=== PATIENT | male | born 1965 | race Caucasian/White ===

== ENCOUNTER 2024-08-16 14:07 | Outpatient (CLI) | payer MEDICARE, SELFPAY | END 2024-08-16 14:08 | disposition home or self-care (01) | LOC: NFLDREF 08-17 13:18 | PROVIDERS: PCP Emergency Medicine; Referring Provider Emergency Medicine; Visit Provider Emergency Medicine | DX: E78.5 Hyperlipidemia, unspecified (principal); I10 Essential (primary) hypertension; E11.65 Type 2 diabetes mellitus with hyperglycemia | CPT/HCPCS: 80053; 80061; 82043; 82570 ==

== ENCOUNTER 2024-11-12 13:00 | Emergency (ER) | payer MEDICARE, SELFPAY ==
--- OUTSIDE RECORDS SUMMARY | 2024-11-11 12:50 | XMS_ITS | Encounter Summary ---
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 [facility] DATE: 11/11/2024 INDICATION: Pain. COMPARISON: None. IMPRESSION: The odontoid process appears grossly intact. Vertebral body heights areunremarkable. Alignment is unremarkable. Moderate C5-C6 spondylosis, with intervertebral disc height loss andendplate spurring. Unremarkable prevertebral soft tissues. The visualized lung apices are well aerated. Adam Rivera MD [facility] [place] DIAGNOSTIC IMAGING O RDERABLES Final Result * CT Head w/o Contrast (11/11/2024 1:59 PM CDT) Anatomical Region Laterality Modality Head, SUBRAD CT NEURO, SUBRA D CT NEURO, UMP CT NEURO, RAD CT Computed Tomography 11/11/2024 1:59 PM CDT Impressions 11/11/2024 2:51 PM CDT IMPRESSION: 1. No acute intracranial abnormality. Narrative 11/11/2024 2:51 PM CDT EXAM: CT HEAD W/O CONTRAST LOCATION: [facility] DATE: 11/11/2024 INDICATION: head trauma COMPARISON: None. TECHNIQUE: Routine CT head without IV contrast. Multiplanar reformats. Dose reduction techniques were used. FINDINGS: INTRACRANIAL CONTENTS: No acute intracranial hemorrhage. No CT evidence of an acute infarction. Right frontal, parietal, and temporal encephalomalacia. Mild presumed chronic small vessel ischemic changes. Mild to moderate generalized volume loss. No hydrocephalus. VISUALIZED ORBITS/SINUSES/MASTOIDS: No intraorbital abnormality. No significant paranasal sinus mucosal disease. No significant middle ear or mastoid effusion. BONES/SOFT TISSUES: No acute abnormality. Partially calcified left parietal scalp lesion, likely benign such as a sebaceous cyst. Procedure Note Catina Barragan MD - 11/11/2024 EXAM: CT HEAD W/O CONTRAST LOCATION: [facility] DATE: 11/11/2024 INDICATION: head trauma COMPARISON: None. TECHNIQUE: Routine CT head without IV contrast. Multiplanar reformats.Dose reduction techniques were used. FINDINGS: INTRACRANIAL CONTENTS: No acute intracranial hemorrhage. No CT evidence ofan acute infarction. Right frontal, parietal, and temporalencephalomalacia. Mild presumed chronic small vessel ischemic changes.Mild to moderate generalized volume loss. No hydrocephalus. VISUALIZED ORBITS/SINUSES/MASTOIDS: No intraorbital abnormality. Nosignificant paranasal sinus mucosal disease. No significant middle ear ormastoid effusion. BONES/SOFT TISSUES: No acute abnormality. Partially calcified leftparietal scalp lesion, likely benign such as a sebaceous cyst. IMPRESSION: 1. No acute intracranial abnormality. us Adam Rivera MD IM CT ORDERABLES Final Result * (ABNORMAL) Glucose by meter (11/11/2024 1:29 PM CDT) GLUCOSE BY METER POCT 406(H) 70 - 99 mg/dL 11/11/2024 1:36 PM CDT [facility] Blood, Capillary BLOOD SPECIMEN / Unknown 11/11/2024 1:29 PM CDT 11/11/2024 1:36 PM CDT us Adam Rivera MD LAB - BEAKER POCT Final Result [facility] [address] Lab (1st floor, no room number) [place] [address], [facility] documented in this encounter Visit Diagnoses Diagnosis Strain of right shoulder, initial encounter- Primary Cervical strain, initial encounter Elevated blood pressure reading Elevated blood pressure reading without diagnosis of hypertension documented in this encounter Administered Medications Inactive Administered Medications - up to 3 most recent administrations Medication Order MAR Action Action Date Dose Rate Site acetaminophen (TYLENOL) tablet 500 mg 500 mg, Oral, EVERY 4 HOURS PRN, fever, Starting on 11/11/24 at 1324, Maximum acetaminophen dose from all sources = 75 mg/kg/day not to exceed 4 gram $Given 11/11/2024 1:27 PM CDT 500 mg documented in this encounter Active and Recently Administered Medications Times are shown in CDT. PRN Medication Order 11/09/2024 11/10/2024 11/11/2024 acetaminophen (TYLENOL) tablet 500 mg 500 mg, Oral, EVERY 4 HOURS PRN, fever, Starting on 11/11/24 at 1324, Maximum acetaminophen dose from all sources = 75 mg/kg/day not to exceed 4 gram 1327 ($Given - Provi ny: Pooja Richards RN) documented in this encounter Care Teams Rn Cardiac Cath Relationship Specialty Start Date End Date Clinic, [place] [address] PCP - General 11/11/24 documented as of this encounter
[2024-11-12 13:24] VITALS: BP 147/93; PULSE 102; RESP 22; TEMP 36.9; O2SAT 96; BMI 29.8
--- NOTE | 2024-11-12 14:56 | ED.GENADULT ---
HPI - General Adult General Chief complaint: Psychiatric Problem/Disorder Stated complaint: Mental Health Time Seen by Provider: 11/12/24 14:36 History of Present Illness HPI narrative: This 59-year-old male comes in his . He is reporting headache for the past 3 days but also has some confusion and anger episodes. He was arrested by police 3 days ago and placed in hand coughs and then released. Apparently he was not charged with any crime. He has had some bruising de la cruz on his hands from the handcuffs and these have resolved. He did go to a different emergency department and had CT imaging done of his head and also his neck and left shoulder were evaluated. These results returned with no findings to explain his symptoms. He did receive a prescription for some tablets of [place] any states that this is not helped him. His states that his blood glucose has been elevated to around 400 and is blood pressure is been a bit elevated. Related Data Home Medications ?Medication ?Instructions ?Recorded ?Confirmed apixaban 5 mg tablet (Eliquis) 5 mg PO BID 03/30/24 11/12/24 cyclobenzaprine 10 mg tablet 10 mg PO QPM PRN muscle spasm 03/30/24 11/12/24 trazodone 150 mg tablet 75 mg PO QPM 03/30/24 11/12/24 insulin NPH-regular 70-30 U-100 15 unit subcut BID 08/16/24 11/12/24 insulin 100 unit/mL subcutaneous pen (Novolin 70-30 FlexPen U-100 Insulin) metoprolol succinate 50 mg 50 mg PO BID 08/16/24 11/12/24 tablet,extended release 24 hr Previous Rx's ?Medication ?Instructions ?Recorded metformin 1,000 mg tablet 1,000 mg PO BID #360 tabs 08/16/24 blood-glucose,research editor,cont #1 ea 08/17/24 (Dexcom G7 Spare Parts Clerk) diltiazem HCl 360 mg 360 mg PO DAILY #90 caps 09/13/24 capsule,extended release 24 hr glipizide 10 mg tablet 10 mg PO BID #180 tabs 09/13/24 losartan 50 mg tablet 50 mg PO DAILY #90 tabs 09/13/24 pioglitazone 45 mg tablet 45 mg PO DAILY #90 tabs 09/13/24 atorvastatin 40 mg tablet 40 mg PO QDAY #90 tabs 09/20/24 pen needle, diabetic 29 gauge x #100 ea 09/20/24 1/2 (Ultra-Thin II Insulin Pen Paris) blood-glucose sensor (Dexcom G7 #9 ea 09/24/24 Sensor device) lidocaine 5 % topical patch 1 patch topical QDAY #90 ea 10/18/24 tirzepatide 2.5 mg/0.5 mL 2.5 mg (0.5 mL) subcut QWEEK 4 10/18/24 subcutaneous pen injector weeks #2 mL (Mounjaro) meloxicam 15 mg tablet 15 mg PO QDAY PRN pain #30 tabs 11/02/24 lorazepam 0.5 mg tablet (Ativan) 0.5 mg PO BID PRN #10 tabs 11/12/24 ondansetron HCl 4 mg tablet 4 mg PO Q6H #10 tabs 11/12/24 Allergies Allergy/AdvReac Type Severity Reaction Status Date / Time No Known Drug Allergies Allergy Verified 11/12/24 13:30 Review of Systems Status of ROS: Reports: 10 or more systems reviewed and unremarkable except as noted in History and below Narrative: Constitutional: No fevers, no weight gain or loss. Eyes: No discharge. No vision changes. HENT: No congestion, no sore throat, no ear pain. Cardiovascular: No chest pain, no palpitations. Respiratory: No shortness of breath, no wheezes, no cough. Gastrointestinal: No abdominal pain, no vomiting, no diarrhea. He does report nausea symptoms. Genitourinary: No dysuria, no hematuria. Musculoskeletal: Normal range of motion. He reports pain in his head neck and shoulder. Resolving bruises on his wrists from handcuffs. Skin: No rashes, no pruritis. Neurological: No dizziness, weakness, sensory change, speech change. Endo/Heme/Allergies: No bruising or bleeding. No polydipsia. Pysch: no suicidality. He reports insomnia. All other systems reviewed and are negative. 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 (ICD-10) Surgical History (Updated 10/18/24 @ 15:03 by Franny Santana PA-C) History of cardiac radiofrequency ablation (RFA) ?Z98.890 - Other specified postprocedural states (ICD-10) Family History (Updated 08/16/24 @ 14:57 by Yudy Duke MD) Father Diabetes Eye cancer Mother Diabetes Sister Cancer Social History (Updated 07/24/24 @ 14:07 by Soraida Hough ~ DELMAR) Narrative: fiancee , no children, no exercise, on disability, rare etoh quit cigs 2006 What is your current living situation?: I presently have a place to live Problems where you live: no known problems In the past 12 months, utilities in danger of being shut off: no In past 12 months, lack of transportation kept you from medical appts, meetings, work, or getting things needed for daily living: no In the past 12 mos, have been you worried that your food would run out before you had money to buy more?: often true In the past 12 mos, the food you bought just didn't last and you didn't have money to buy more?: sometimes true How often does anyone, including family, friends and others, physically hurt you: never How often does anyone, including family, friends and others, insult or talk down to you: never How often does anyone, including family, friends and others, threaten you with harm: never How often does anyone, including family, friends and others, scream or curse at you: never Health Related Social Needs: food insecurity (Z59.41) Exam Narrative: Exam Narrative: Constitutional: Well-developed, well-nourished, no acute distress. HEENT: Normocephalic, atraumatic. Neck: Normal range of motion. Nontender. Supple. Heart: Regular. No murmurs. Normal rate. Intact distal pulses. Lungs: Clear to auscultation. No chest discomfort. No wheezes, rhonchi, or rales. Abdomen: Normal bowel sounds. Nontender. No rebound tenderness. Genitalia: Deferred. Back: No midline tenderness. Normal range of motion. Extremities: Normal range of motion. No injury. Skin: Intact. No rash. Warm. No erythema or pallor. Neurologic: No altered sensation. No weakness. Alert and oriented. Psychiatric: No suicidality. He reports insomnia. Nursing notes and vitals signs are reviewed. Const: Vital Signs, click to edit/add: Vital Signs - 24 hr 11/12/24 13:24 Temperature 98.5 F Pulse Rate [Pulse Oximeter] 102 H Respiratory Rate 22 Blood Pressure [Ri ght Upper Arm] 147/93 H Pulse Oximetry 96 Oxygen Delivery Me thod Room Air Course Vital Signs Vital signs: Initial Vital Signs Temperature 98.5 F 11/12/24 13:24 Temperature Source Temporal Artery Scan 11/12/24 13:24 Pulse Rate 102 H 11/12/24 13:24 Respiratory Rate 22 11/12/24 13:24 Blood Pressure 147/93 H 11/12/24 13:24 Blood Pressure Mean 111 H 11/12/24 13:24 Pulse Oximetry 96 11/12/24 13:24 Oxygen Delivery Method Room Air 11/12/24 13:24 Vital Signs Temperature 98.5 F 11/12/24 13:24 Pulse Rate 102 H 11/12/24 13:24 Respiratory Rate 22 11/12/24 13:24 Blood Pressure 147/93 H 11/12/24 13:24 Pulse Oximetry 96 11/12/24 13:24 Oxygen Delivery Method Room Air 11/12/24 13:24 Temperature 98.5 F 11/12/24 13:24 Pulse Rate 102 H 11/12/24 13:24 Respiratory Rate 22 11/12/24 13:24 Blood Pressure 147/93 H 11/12/24 13:24 Pulse Oximetry 96 11/12/24 13:24 Oxygen Delivery Method Room Air 11/12/24 13:24 Medical Decision Making MDM Narrative Medical decision making narrative: This patient was handcuffed by police a few days ago and since then has had some headache with report of confusion by his . He has had some anger and agitation according to her also. He states that he has had some nausea and has not been sleeping well at night. He did take [place] and stated this did not help him at all. His gave him a Valium tablet which did help him sleep. He was evaluated at [facility] in the emergency department and discharged home with prescription for [place]. This evaluation occurred yesterday. It seems that he is having symptoms of a concussion. His blood pressure and blood glucose are elevated likely due to this recent incident. The patient has reassuring vital signs and exam. He is okay to be discharged home. He did receive an oral dose of Ativan here. I did provide limited prescription for more Ativan tablets along with Zofran. I described matters pertaining to concussion and when to return to activity. Discharge Plan Discharge Clinical Impression: Concussion, Nausea, Insomnia Patient Disposition: Home w/ Parent or Adult Condition: Stable Additional Instructions: Take medication as needed and directed. Increase activity as tolerated. Follow up with MD return if worsening. Prescriptions: New ondansetron HCl 4 mg tablet 4 mg PO Q6H Qty: 10 0RF lorazepam [Ativan] 0.5 mg tablet 0.5 mg PO BID PRNQty: 10 0RF No Action (DME) pen needle, diabetic [Ultra-Thin II Ins Pen Paris] 29 gauge x 1/2 needle See Rx Instructions .Route Qty: 100 3RF Rx Instructions: As directed twice daily atorvastatin 40 mg tablet 40 mg PO QDAY Qty: 90 3RF cyclobenzaprine 10 mg tablet 10 mg PO QPM PRN (Reason: muscle spasm) Eliquis 5 mg tablet 5 mg PO BID trazodone 150 mg tablet 75 mg PO QPM metoprolol succinate 50 mg tablet extended release 24 hr 50 mg PO BID Novolin 70-30 FlexPen U-100 100 unit/mL (70-30) insulin pen 15 unit subcut BID metformin 1,000 mg tablet 1,000 mg PO BID Qty: 360 3RF lidocaine 5 % adhesive patch,medicated 1 patch topical QDAY Qty: 90 0RF Rx Instructions: leave on most painful area for up to 12 hrs Mounjaro 2.5 mg/0.5 mL pen injector 2.5 mg subcut QWEEK 28 Days Qty: 2 0RF Rx Instructions: once weekly for diabetes (DME) Dexcom G7 Spare Parts Clerk Misc See Rx Instructions .Route Qty: 1 0RF Rx Instructions: As directed diltiazem HCl 360 mg capsule,extended release 24hr 360 mg PO DAILY Qty: 90 0RF pioglitazone 45 mg tablet 45 mg PO DAILY Qty: 90 0RF losartan 50 mg tablet 50 mg PO DAILY Qty: 90 0RF glipizide 10 mg tablet 10 mg PO BID Qty: 180 0RF (DME) Dexcom G7 Sensor Device See Rx Instructions .Route Qty: 9 3RF Rx Instructions: As directed meloxicam 15 mg tablet 15 mg PO QDAY PRN (Reason: pain) Qty: 30 1RF Follow Up/Referrals: Franny Santana PA-C [Primary Care Provider, Family Practice] Stand Alone Forms: MyHealth Info Instructions
--- OUTSIDE RECORDS SUMMARY | 2024-11-12 15:05 | XMS_ITS | Encounter Summary ---
Author Organization [facility] Address [address] [place] [id number] Care Team Providers Care Bedspread Folder Name Role Phone [facility] Primary Care Provider Encounter Details Date Type Department Care Team (Latest Contact Info) Description 11/11/2024 Travel Social History Tobacco Use Types Packs/Day Years Used Date Smoking Tobacco: Never Assessed Sex and Gender Information Value Date Recorded Sex Assigned at Not on file Legal Sex Male 11:43 AM CDT Gender Identity Not on file Sexual Orientation Not on file documented as of this encounter Plan of Treatment Not on file documented as of this encounter Visit Diagnoses Not on filedocumented in this encounter Care Teams Bedspread Folder Relationship Specialty Start Date End Date [facility] [address] [place] [address] PCP - General 11/11/24 documented as of this encounter
--- OUTSIDE RECORDS SUMMARY | 2024-11-12 15:05 | XMS_ITS | Encounter Summary ---
Author Organization [facility] Address [address] [place] [address] Care Team Providers Care Skiver Counter Name Role Phone None Reported, Pcp Primary Care Provider Unavail able Reason for Visit * Reason Comments Med Refill Encounter Details Date Type Department Care Team ([facility] st Contact Info) Description 09/28/2024 Refill Department of Family Medicine, [facility], in [place], [place] [address] [place] [id number] Tish Velasquez M.D. [address] [place] [address] [place] [address] Med Refill Social History Tobacco Use Types Packs/Day Years Used Date Smoking Tobacco: Former Cigarettes Q uit: 11/21/2006 Smokeless Tobacco: Former Alcohol Use Standard Drinks/Week Comments Yes 3 (1 standard drink = 0.6 oz pur e alcohol) [facility] Utilities Answer Date Recorded In the past 12 months has e electric, gas, oil, or water company threatened to shut off services in your home? No 04/28/2023 Humiliation, Afraid, Rape, and Kick questionnair e Answer Date Recorded Within the last year, have y ou been afraid of your partner or ex-partner? No 01/11/2022 Within the last year, have y ou been humiliated or emotionally abused in other ways by your partner or ex-partner? No Within the last year, have y ou been kicked, hit, slapped, or otherwise physically hurt by your partner or ex-partner? No 01/11/2022 Within the last year, have y ou been raped or forced to have any kind of sexual activity by your partner or ex-partner? No 01/11/2022 Hunger Vital Sign Answer Date Recorded Within the past 12 months, y ou worried that your food would run out before you got the money to buy more. Sometimes true Within the past 12 months, t he food you bought just didn't last and you didn't have money to get more. Sometimes true PRAPARE - Transportation Answer Date Re corded In the past 12 months, has l ack of transportation kept you from medical appointments or from getting medications? No 04/08 In the past 12 months, has l ack of transportation kept you from meetings, work, or from getting things needed for daily living? No 04/28/2023 Depression Answer Date Recor ded PHQ-9 Total Score (max 27) 6 06/26 Housing Stability Answer Date Recorded What is your living situation today? I have [facility] live 04/28/2023 Education Answer Date Recorded What is the highest level of school you have completed or the highest degree you have received? 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 - 10/02/2024 10:45 AM CDT Patient no longer under prescriber care documented in this encounter Plan of Treatment Not on file documented as of this encounter Visit Diagnoses Not on filedocumented in this encounter Additional Health Concerns Assessment Noted Time PHQ-9 Depression Total Score: 6 06/27/19 24 8:34 PM CDT documented as of this encounter Care Teams Skiver Counter Relationship Specialty Start Date End Date None Reported, Pcp PCP - General 01/13/24 documented as of this encounter
--- OUTSIDE RECORDS SUMMARY | 2024-11-12 15:06 | XMS_ITS | Clinical Summary ---
Author Organization [facility] Address [address] [place] [address]. [place] [address] Care Team Providers Care Human Resources Benefits Administrator Name Role Phone [facility] Primary Care Provider Allergies No known active allergies Medications HYDROcodone-acet aminophen (NORCO) 5-325 MG tablet Take 1 tablet by mouth every 6 hours as needed for pain. 10 tablet 11/11/2024 Active Encounters Date Type Department Care Team Description 11/11/2024 12:50 PM CDT - 11/11/2024 4:12 PM CDT Emergency [facility] Emergency Dept [address] [place] [address] Adam Rivera MD Strain of right shoulder, initial encounter (Primary Dx); Cervical strain, initial encounter; Elevated blood pressure reading Discharge Disposition: Home or Self Care 11/11/2024 Travel from Last 3 Months Social History Tobacco Use Types Packs/Day Years Used Date Smoking Tobacco: Never Assessed Sex and Gender Information Value Date Recorded Sex Assigned at Not on file Legal Sex Male 11:43 AM CDT Gender Identity Not on file Sexual Orientation Not on file Last Filed Vital Signs Vital Sign Reading [...] Mass Index 29.68 11/11/2024 11:54 AM CDT Plan of Treatment Health Maintenance Due Date Last Done Comments ADVANCE CARE PLANNING 1965 ANNUAL REVIEW OF HM ORDERS 1965 CT COLONOGRAPHY 1965 FLEX SIG 1965 MEDICARE ANNUAL WELLNESS VISIT 1983 LIPID 2005 PNEUMOCOCCAL VACCINE 50+ YEARS (1 of 1 - PCV) 2015 ZOSTER VACCINE (1 of 2) 2015 FIT 07/06/2018 07/06/2017 sDNA (Cologuard) 05/09/2023 05/08/2020 PHQ-2 (once per calendar year) 2024 DTAP/TDAP/TD VACCINE (2 - Td or Tdap) 05/17/2024 05/17/2014 COVID-19 VACCINE (3 - 2024-2 6 season) 2024 07/23/2020, 06/23/2020 INFLUENZA VACCINE (#1) 2024 DIABETES SCREENING 11/12/2027 11/11/2024 COLONOSCOPY 05/26/2032 05/26/2022 COLORECTAL CANCER SCREENING 05/26/2032 HEPATITIS C SCREENING Completed 10/04/2014 HIV SCREENING Completed 10/04/2014 HEPATITIS B VACCINE Completed 11/25/2014, 06/24/2014, 05/17/2014 HPV VACCINE (No Doses Required) Completed MENINGITIS VACCINE Aged Out No longer eligible based on patient's age to complete this topic Procedures Procedure Name Priority Date/Time Associated Diagnosis Comments XR SHOULDER RIGHT G/E 3 VIEWS STAT 11/11/2024 2:14 PM CDT XR CERVICAL SPINE 2/3 VIEWS STAT 11/11/2024 2:[address] HEAD W/O CONTRAST STAT 11/11/2024 1:59 PM CDT GLUCOSE BY METER STAT 11/11/2024 1:29 PM CDT from Last 3 Months Results * XR Shoulder Right G/E 3 Views (11/11/2024 2:14 PM CDT) Anatomical Region Laterality Modality Shoulder, Right Shoulder Right Digital Radiography 11/11/2024 2:14 PM CDT Impressions 11/11/2024 2:17 PM CDT IMPRESSION: Anatomic alignment of the right shoulder. No fracture. Mild acromioclavicular joint arthrosis. Narrative 11/11/2024 2:17 PM CDT EXAM: XR SHOULDER RIGHT G/E 3 VIEWS LOCATION: [facility] DATE: 11/11/2024 INDICATION: pain COMPARISON: None. Procedure Note Sheela Berry MD - 11/11/2024 EXAM: XR SHOULDER RIGHT G/E 3 VIEWS LOCATION: [facility] DATE: 11/11/2024 INDICATION: pain COMPARISON: None. IMPRESSION: Anatomic alignment of the right shoulder. No fracture. Mildacromioclavicular joint arthrosis. us Adam Rivera MD IMG DIAGNOSTIC IMAGING O RDERABLES Final Result * [...] EXAM: XR CERVICAL SPINE 2/3 VIEWS LOCATION: [facility] DATE: 11/11/2024 INDICATION: Pain. COMPARISON: None. Procedure Note Maldonado Meza MD - 11/11/2024 EXAM: XR CERVICAL SPINE 2/3 VIEWS LOCATION: [facility] DATE: 11/11/2024 INDICATION: Pain. COMPARISON: None. IMPRESSION: The odontoid process appears grossly intact. Vertebral body heights areunremarkable. Alignment is unremarkable. Moderate C5-C6 spondylosis, with intervertebral disc height loss andendplate spurring. Unremarkable prevertebral soft tissues. The visualized lung apices are well aerated. us Adam Rivera MD IMG DIAGNOSTIC IMAGING O RDERABLES Final Result * CT Head w/o Contrast (11/11/2024 1:59 PM CDT) Anatomical Region Laterality Modality Head, SUBRAD CT NEURO, SUBRA D CT NEURO, UMP CT NEURO, RAD CT Computed Tomography 11/11/2024 1:59 PM CDT Impressions 11/11/2024 2:51 PM CDT IMPRESSION: 1. No acute intracranial abnormality. Narrative 11/11/2024 2:51 PM CDT EXAM: CT HEAD W/O CONTRAST LOCATION: [facility] DATE: 11/11/2024 INDICATION: head trauma COMPARISON: None. [...] 11/11/2024 EXAM: CT HEAD W/O CONTRAST LOCATION: [facility] DATE: 11/11/2024 INDICATION: head trauma COMPARISON: None. [...] cyst. IMPRESSION: 1. No acute intracranial abnormality. Adam Rivera MD IMG CT ORDERABLES Final Result * (ABNORMAL) Glucose by meter (11/11/2024 1:29 PM CDT) [facility] GLUCOSE BY METER POCT 406(H) 70 - 99 mg/dL 11/11/2024 1:36 PM CDT LABORATORY POC Blood, Capillary BLOOD SPECIMEN / Unknown 11/11/2024 1:29 PM CDT 11/11/2024 1:36 PM CDT Adam Rivera MD LAB - BEAKER POCT Final Result Performing Organization Address City/State/[facility] Co de Phone Number LABORATORY POC [facility] [address] [facility] (1st floor, no room number) [place] [address], [facility] from Last 3 Months Insurance [employer] MEDICARE ADVANTAGE [employer]ARE ADVANTAGE Care Teams Human Resources Benefits Administrator Relationship Specialty Start Date End Date [facility] [address] [place] [address] PCP - General 11/11/24
--- OUTSIDE RECORDS SUMMARY | 2024-11-12 15:07 | XMS_ITS | Continuity of Care Document ---
Author Organization [facility] Address [address] [place] [address] Care Team Providers Care Campus Receptionist Name Role Phone None Reported, Pcp Primary Care Provider Unavail able Source Comments Patient records contain information from all sites at [facility]. For routine questions regarding patient records, call [phone] during business hours, M-F 8:00 AM - 5:00 PM Central Time. Record requests for emergency care only can be directed to [phone] at any time.[facility] Encounters Date Type Department Care Team Description 5 Refill Department of Family Medicine, [facility], in [address] [address] Tish Velasquez M.D. Med Refill 5 Refill Formerly [facility] Department of Family Medicine in [place], [place] [address] [place] [address] Tish Velasquez M.D. Med Refill 5 Refill Formerly [facility] Department of Family Medicine in [place], [place] [address] [place] [address] Tish Velasquez M.D. Med Refill 5 Refill Department of Cardiovascular Diseases in [place], [place] [address] [place] [phone] Katharine Cheema APRN, C.NDeb., D.N.P. Med Refill 5 Refill Formerly [facility] Department of Family Medicine in [place], [place] [address] [place] [address] Tish Velasquez M.D. Med Refill 5 Refill Formerly [facility] Department of Family Medicine in [place], [place] [address] [place] [address] Tish Velasquez M.D. Med Refill 5 Refill Formerly [facility] Department of Family Medicine in [place], [place] [address] [place] [address] Tish Velasquez M.D. Med Refill 4 Refill Department of Family Medicine, [facility], in [address] [address] Tish Velasquez M.D. Med Refill 4 Refill [facility] of Family Medicine in [place], [place] [address] [place] [address] Tish Velasquez M.D. Med Refill 4 Refill Formerly [facility] Department of Family Medicine in [place], [place] [address], [place] [address] Tish Velasquez M.D. Med Refill 4 Refill Formerly [facility] Department of Family Medicine in [place], [place] [address], [place] [address] Ad Frankel M.D. Med Refill 4 Clinical Communication Formerly [facility] Department of Family Medicine in [place] [address] [place] [address] Tish Velasquez M.D. 4 Refill [facility] [place] in [place], [place] [address] [place] [address] Tish Velasquez M.D. Med Refill 4 Refill [facility] [place] in [place], [place] [address] [place] [address] Tish Velasquez M.D. Med Refill 4 Refill [facility] [place] in [place], [place] [address] [place] [address] Tish Velasquez M.D. Med Refill 4 2:00 PM CDT Nurse Only Department of Orthopedic Surgery in [address] [address] Aziza Ruiz APRN, C.N.P., M.S.N. [facility], R.NDouglas Discharge Disposition: Home or Self Care 4 Refill [facility] [place] in [place], [place] [address] [place] [address] Tish Velasquez M.D. Med Refill 4 3:00 PM CDT Office Visit [facility] [place] in [place], [place] [address] [place] [address] Tish Velasquez M.D. 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 4 Refill [facility] [place] in [place], [place] [address] [place] [address] Tish Velasquez M.D. Med Refill 4 Clinical Communication [facility] Family [facility] in [place] [address] [place] [address] Tish Velasquez M.D. lab 4 Refill Department of Cardiovascular Diseases in [address] [address] Katharine Cheema APRN, C.N.PDouglas, D.N.P. Med Refill 4 Refill Department of Family Medicine, [facility], in [place] [address] [place] [address] Tish Velasquez M.D. Med Refill 4 Refill [facility] Family Medicine in [place] [address] [place] [address] Tish Velasquez M.D. Med Refill 4 3:34 PM GLOBAL CEO - 4 11:59 PM GLOBAL CEO Hospital Encounter Department of [facility] Medicine, [facility], in [address] [address] Tish Velasquez M.D. Diabetes Mellitus Type 2 With Diabetic Neuropathy (HCC); Hypertension And Chronic Kidney Disease Stage 2 Discharge Disposition: Home or Self Care 4 9:00 AM GLOBAL CEO Nurse Only Department of Orthopedic Surgery in [address] [address] Aziza Ruiz APRN, C.N.P., M.S.N. Zully Martinez, R.N. Discharge Disposition: Home or Self Care 3 Clinical Communication [facility] [place] in [place] [address] [place] [address] Tish Velasquez M.D. Form Review ([facility]) 3 Clinical Communication [facility] of Family Medicine in [place] [address] [place] [address] Tish Velasquez M.D. 3 Clinical Communication Department of Cardiovascular Diseases in [address] [phone] Katharine Cheema APRN C.N.P., D.N.P. 3 3:00 PM GLOBAL CEO Office Visit Department of Cardiovascular Diseases in [address] [phone] Katharine Cheema APRN, C.N.P., D.N.P. Atrial Fibrillation Paroxysmal (HCC) (Primary Dx); Hypotension Orthostatic Autonomic Neurogenic; Syncope Discharge Disposition: Home or Self Care 3 Refill [facility] of Family Medicine in [place], [place] [address] [place] [address] Ad Frankel M.D. Med Refill 3 Patient Outreach [facility] Family Medicine in [place] [address] [place] [address] Tish Velasquez M.D. Lab Monitoring 3 Orders Only Department of Orthopedic Surgery in [address] [phone] Aziza Ruiz APRN C.N.P., M.S.N. 3 Clinical Communication Department of Orthopedic Surgery in [address] [place] [phone] Aziza Ruiz APRN C.N.P., M.S.N. 3 3:30 PM CDT Office Visit [facility] Department of Family Medicine in [place], [place] [address] [place] [address] Tish Velasquez M.D. Diabetes Mellitus Type 2 With Diabetic Neuropathy Hyperglycemic (HCC) (Primary Dx); Hypertension And Chronic Kidney Disease Stage 2; Hyperlipidemia 3 12:24 PM CDT - 3 11:59 PM CDT Hospital Encounter Department of Laboratory Medicine, [facility], in [address] [address] Tish Velasquez M.D. Hyperlipidemia; Diabetes Mellitus Type 2 With Diabetic Neuropathy Hyperglycemic (HCC); Hypertension And Chronic Kidney Disease Stage 2 Discharge Disposition: Home or Self Care 3 Clinical Communication Department of Cardiovascular Diseases in [address] [address] Catrachita Chavira R.N. Return office visit with Rinku Cheema [facility] 3 Clinical Communication Department of Cardiovascular Diseases in [address] [phone] Katharine Cheema APRN, C.N.P., D.N.P. 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 Syncope Discharge Disposition: Home or Self Care 3 1:30 PM CDT Office Visit Department of Cardiovascular Diseases in [address] [phone] Katharine Cheema APRN, C.N.P., D.N.P. Atrial Fibrillation Paroxysmal (HCC) (Primary Dx); Obstructive Sleep Apnea Adult Discharge Disposition: Home or Self Care 3 Clinical Communication Department of Cardiovascular Diseases in [address] [address] Katharine Cheema APRN C.N.PDouglas, D.N.P. Tachy episode on Reveal LINQ loop recorder 3 2:00 AM CDT - 3 11:59 PM CDT Hospital Encounter Department of Cardiovascular Diseases in [place], [place] [address] [place] [phone] Fernando Leiva M.D. Syncope Discharge Disposition: Home or Self Care 3 3:00 PM CDT Office Visit Department of Orthopedic Surgery in [address] [phone] Aziza Ruiz APRN, C.N.P., M.S.N. Zully Martinze, R.N. Thickened Toenail (Primary Dx); Diabetes Mellitus Type 2 With Diabetic Neuropathy Hyperglycemic (HCC) Discharge Disposition: Home or Self Care 3 Refill [facility] Department of Family Medicine in [place], [place] [address] [place] [address] Tish Velasquez M.D. Med Refill 3 1:24 PM CDT - 3 11:59 PM CDT Hospital Encounter Department of Cardiovascular Diseases in [address] [address] Katharine Cheema APRN, C.N.P., D.N.P. Atrial Fibrillation Other Persistent (HCC) Discharge Disposition: Home or Self Care 3 Refill Department of Family Medicine, [facility], in [place], [place] [address] [place] [address] Ludmila Rose APRN C.N.PDouglas, M.S. Med Refill 3 Refill [facility] of Family Medicine in [place] [address] [place] [phone] Tish Velasquez M.D. Med Refill 3 Refill [facility] Department of Family Medicine in [place] [address] [place] [address] Tish Velasquez M.D. Med Refill 3 Orders Only [facility] MNT Tish Velasquez M.D. Diabetes Mellitus Type 2 With Diabetic Neuropathy Hyperglycemic (HCC) 3 Clinical Communication [facility] Department of Family Medicine in [place] [address] [place] [address] Tish Velasquez M.D. 3 Clinical Communication Department of Pain Medicine in [address] [address] Abdirashid Parham M.D., M.B.A. 3 Orders Only Department of Pain Medicine in [address] [address] Abdirashid Parham M.D., M.B.A. 3 Refill Department of Cardiovascular Diseases in [address] [address] Katharine Cheema APRN, C.N.P., D.N.P. Med Refill 3 Clinical Communication Department of Pain Medicine in [address] [address] Abdirashid Parham M.D., M.B.A. 3 Clinical Communication [facility] Department of Family Medicine in [place] [address] [place] [address] Tish Velasquez M.D. 3 Clinical Communication Former[facility] Department of Family Medicine in [place] [address] [place] [address] Tish Velasquez M.D. Med Refill 3 Orders Only Department of Pain Medicine in [address] [address] Abdirashid Parham M.D., M.B.A. Spondylosis Lumbar Without Myelopathy (Primary Dx) 3 Clinical Communication Department of Pain Medicine in [address] [address] Abdirashid Parham M.D., M.B.A. Communication 3 Refill Department of Family Medicine, [facility], in [address] [address] Ludmila Rose, KINGS C.N.P., M.S. Med Refill 3 3:30 PM CDT Ancillary Procedure Department of Radiology, [facility], in [place], [place] [address] [place] [address] Abdirashid Parham M.D., M.B.A. Pain Shoulder Right; Radiculopathy Cervical; Radiculopathy Lumbar 3 Refill [facility] of Family Medicine in [place], [place] [address] [place] [address] Prescheduling, Provider Med Refill 3 Refill [facility] Department of Family Medicine in [place], [place] [address] [place] [phone] Tish Velasquez M.D. Med Refill 3 Refill [facility] Department of Family Medicine in [place], [place] [address] [place] [phone] Abdirashid Parham M.D., M.B.A. Med Refill 3 Clinical Communication Department of Pain Medicine in [address] [address] Abdirashid Parham M.D., M.B.A. 3 Refill [facility] Family Medicine in [place] [address] [address] Tish Velasquez M.D. Med Refill 3 11:30 AM CDT - 3 11:59 PM CDT Hospital Encounter Department of Cardiovascular Diseases in [address] [phone] Katharine Cheema APRN, C.N.P., D.N.P. Syncope Discharge Disposition: Home or Self Care 3 Orders Only Department of Cardiovascular Diseases in [address] [phone] Felipa Garcia, R.N. Syncope (Primary Dx) 3 11:30 AM CDT Office Visit Department of Cardiovascular Diseases in [address] [phone] Katharine Cheema APRN, C.N.P., D.N.P. Atrial Fibrillation Paroxysmal (HCC) (Primary Dx); Atrial Fibrillation Other Persistent (HCC) 3 3:00 PM CDT Comprehensive Visit Department of Pain Medicine in [address] [address] Abdirashid Parham M.D., M.B.A. Radiculopathy Cervical (Primary Dx); Pain Shoulder Right; Radiculopathy Lumbar; Tendonitis Rotator Cuff 3 Patient Outreach Department of Physical Medicine and Rehabilitation in [address] [phone] Tanya Vargas, R.N. 3 Clinical Communication [facility] Family Medicine in [place] [address] [place] [address] Tish Velasquez M.D. Phone Call 3 Clinical Communication Department of Pain Medicine in [place], [place] [address] [place] [address] Manuel Esteban R.N. 3 3:00 PM CDT Office Visit [facility] of Family Medicine in [place], [place] [address] [place] [address] Tish Velasquez M.D. Diabetes Mellitus Type 2 With Diabetic Neuropathy Hyperglycemic (HCC) (Primary Dx); Hypertension And Chronic Kidney Disease Stage 2; Hyperlipidemia; Atrial Fibrillation Paroxysmal (HCC); Obstructive Sleep Apnea Adult; Pain Shoulder Right 3 1:00 PM CDT - 3 11:59 PM CDT Hospital Encounter Department of Laboratory Medicine, [facility], [place], [place] [address] [place] [address] Ludmila Rose APRN, C.N.P., M.S. Diabetes Mellitus Type 2 With Diabetic Neuropathy Hyperglycemic (HCC) Discharge Disposition: Home or Self Care 3 Refill Department of Family Medicine, [facility], [address] [address] Ludmila Rose APRN, C.N.P., M.S. Med Refill 3 Clinical Communication Department of Family Medicine, [facility], [address] [address] Tish Velasquez M.D. Med Question 3 4:30 PM CDT Office Visit [facility] Family Medicine in [place], [place] [address] [place] [address] Tish Velasquez M.D. Chronic Cough (Primary Dx); Infection Upper Respiratory Viral 3 10:00 AM CDT Comprehensive Visit Department of Orthopedic Surgery in [address] [address] Aziza Ruiz APRN, C.N.Kemar, M.S.N. Diabetes Mellitus Type 2 With Diabetic Neuropathy Hyperglycemic (HCC) (Primary Dx); Thickened Toenail 3 10:25 AM CDT Ancillary Procedure Department of Gastroenterology 3 9:25 AM CDT Anesthesia Event Department of Gastroenterology in [address] [address] Renee Landa APRN, CRNA Quale, Mackenzie G, M.D. 3 9:15 AM CDT - 3 10:00 AM CDT Surgery Department of Gastroenterology in [address] [address] Kasi Duran M.B.B.S., Jacob COLONOSCOPY 3 7:21 AM CDT - 3 11:30 AM CDT Hospital Encounter Department of Gastroenterology in [address] [address] Kasi Duran M.B.B.S., MBarbra Discharge Disposition: Home or Self Care 3 Clinical Communication Department of Gastroenterology in [address] [address] Joann Bardales R.N., CGRN 3 Documentation Department of Cardiovascular Diseases in [address] [address] Ashley Gibbs M.D. 3 Clinical Communication Department of Family Medicine, [facility], in [place], [place] [address] [place] [address] Ludmila Rose APRN, C.N.Stephan., M.S. 3 Refill Department of Family Medicine, [facility], [address] [place] [address] Ludmila Rose APRN, C.N.P., M.S. Med Refill 3 Clinical Communication Department of Gastroenterology in [address] [place] [address] Alyssa Valente R.N. CVD device review for 05/20 procedure 3 Clinical Communication Department of Family [facility], [facility], [address] [place] [address] Ludmila Rose APRN, Viktoria.N.Stephan., M.S. After Visit Question (Pt wants a call back) 3 11:45 AM GLOBAL CEO Clinical Support Department of Physical Medicine and Rehabilitation in [address] [place] [address] Parish Mock M.D., Ph.D. Glenn Harrington P.Rowdy., D.P.T., OCS Pain Shoulder Right 3 Clinical Communication Department of Family Medicine, [facility], [address] [place] [address] Ludmila Rose APRN, Viktoria.N.P., M.S. Form Review ([facility] DM Supplies 04/30/22) 3 Refill Department of Family Medicine, [facility], [address] [place] [address] Ludmila Rose APRN, Viktoria.N.P., M.S. Med Change Request; [facility] 3 1:15 PM GLOBAL CEO Comprehensive Visit Department of Physical Medicine and Rehabilitation in [place], [place] [address] [place] [address] Parish Mock M.D., Ph.D. Glenn Harrington P.T., CarmitaPTessa., OCS Pain Shoulder Right 3 Clinical Communication Department of Family [facility], [facility], [address] [place] [address] Ludmila Rose APRN, C.N.P., M.S. 3 Refill Department of Family [facility], [facility], [address] [place] [address] Ludmila Rose APRN, C.N.P., M.S. Med Refill 3 Orders Only Department of Family Medicine, [facility], [address] [place] [address] Ludmila Rose APRN, Viktoria.N.P., M.S. 3 Clinical Communication Department of Family [facility], [facility], [address] [place] [address] Ludmila Rose APRN, C.N.P., M.S. Form Review ([facility] DM supplies-strips, lancets, swabs ) 3 9:00 AM GLOBAL CEO Comprehensive Visit Department of Orthopedic Surgery in [address] [place] [phone] Parish Mock M.D., Ph.D. Pain Shoulder Right Discharge Disposition: Home or Self Care 3 3:35 PM GLOBAL CEO - 3 11:59 PM GLOBAL CEO Hospital Encounter Department of Radiology in [address] [place] [address] Ludmila Rose APRN, C.N.P., M.S. Pain Shoulder Right Discharge Disposition: Home or Self Care 3 4:00 PM GLOBAL CEO Office Visit Department of Family [facility], [facility], [address] [place] [address] Ludmila Rose APRN, C.N.P., M.S. Diabetes Mellitus Type 2 With Diabetic Neuropathy Hyperglycemic (HCC) (Primary Dx); Pain Shoulder Right; Depression Major One Episode Moderate (HCC); Atrial Fibrillation Paroxysmal (HCC); Hypertension And Chronic Kidney Disease Stage 2; Cough Unspecified Type Discharge Disposition: Home or Self Care 3 1:26 PM GLOBAL CEO - 3 11:59 PM GLOBAL CEO Hospital Encounter Department of Laboratory Medicine, [facility], [address] [address] Ludmila Rose APRN, C.N.P., M.S. Diabetes Mellitus Type 2 With Diabetic Neuropathy Hyperglycemic (HCC); Hypertension And Chronic Kidney Disease Stage 2 Discharge Disposition: Home or Self Care 2 Clinical Communication Department of Family Medicine, [facility], [address] [address] Ludmila Rose APRN C.N.P., M.S. 2 Clinical Communication Department of Anesthesiology in [address] [address] Kellie Thorpe Cardiac device procedure recommendations 2 Clinical Communication Department of Family Medicine, [facility], [address] [address] Ludmila Rose APRN, C.N.P., M.S. 2 Clinical Communication Department of Gastroenterology in [address] [address] Lee Ann Dillard Colonscopy 02/09 2 Clinical Communication Department of Family Medicine, [facility], [address] [address] Ludmila Rose APRN C.N.P., M.S. Nurse Visit (Blood pressure ) 2 4:00 PM GLOBAL CEO Nurse Only [facility] Department of Family Medicine in [place], [place] [address] [place] [address] Ludmila Rose APRN, C.N.P., M.S. Tracey Aj, R.M.A. Nurse Visit (Bp check ) 2 3:30 PM CDT Office Visit Department of Family Medicine, [facility], [address] [place] [address] Ludmila Rose APRN, C.N.P., M.S. Diabetes Mellitus Type 2 With Diabetic Neuropathy Hyperglycemic (HCC) (Primary Dx); Hypertension And Chronic Kidney Disease Stage 2; Problem Related To Housing And Economic Circumstances Unspecified; Injury Shoulder Subsequent Right; Screening Cancer Colon Discharge Disposition: Home or Self Care 2 1:57 PM CDT - 2 11:59 PM CDT Hospital Encounter Department of Laboratory Medicine, [facility], in [address] [address] Ludmila Rose APRN, C.N.P., M.S. Diabetes Mellitus Type 2 With Diabetic Neuropathy Hyperglycemic (HCC) Discharge Disposition: Home or Self Care 2 Nurse Triage Department of Family Medicine, [facility], [address] [place] [address] Heather James, R.N. Arm Injury; Hand Injury 2 Clinical Communication Department of Family Medicine, [facility], [address] [address] Ludmila Rose APRN, C.N.P., M.S. 2 11:17 AM CDT - 2 12:40 PM CDT Emergency [facility] Emergency Department [address] [place] [phone] Orlando Simpson M.D. Contusion Face Initial (Primary Dx) Discharge Disposition: Home or Self Care 2 Clinical Communication Outpatient Procedure Center in [place], [place] [address] [place] [address] Gerald Yamilka A 2 Clinical Communication Department of Family Medicine, [facility], [address] [place] [address] Ludmila Rose APRN, C.N.P., M.S. Diabetes 2 Refill Department of [facility], [facility], [address] [place] [address] Prescheduling, Provider Med Refill 2 Refill Department of Family [facility], [facility], [address] [place] [address] Ludmila Rose APRN, C.NJose, M.S. Med Refill 2 Clinical Communication Department of Family [facility], [facility], [address] [place] [address] Ludmila Rose APRN, C.N.P., M.S. 2 Clinical Communication Department of Family [facility], [facility], [address] [place] [address] Ludmila Rose APRN, C.N.P., M.S. 2 Clinical Communication Department of Family [facility], [facility], [address] [place] [address] Ludmila Rose APRN, C.N.P., M.S. Form Review ([facility] diabetic supplies ) 2 Clinical Communication Department of Family [facility], [facility], [address] [place] [address] Ludmila Rose APRN, C.N.P., M.S. Diabetes; supplies 2 3:00 PM CDT Office Visit Department of Family Medicine, [facility], [address] [address] Ludmila Rose APRN, C.N.P., M.S. Diabetes Mellitus Type 2 With Diabetic Neuropathy Hyperglycemic (HCC) (Primary Dx); Obstructive Sleep Apnea Adult; Hypertension And Chronic Kidney Disease Stage 2; Depression Major One Episode Moderate (HCC); Anxiety Generalized Disorder; Screening Cancer Colon 2 8:53 AM CDT - 2 11:59 PM CDT Hospital Encounter Department of Laboratory Medicine, [address] [address] Ludmila Rose APRN, C.N.P., M.S. Discharge Disposition: Home or Self Care 2 1:15 PM CDT - 2 11:59 PM CDT Hospital Encounter Department of Laboratory Medicine, [facility], [address] [address] Ludmila Rose APRN, C.N.P., M.S. Diabetes Mellitus Type 2 With Diabetic Neuropathy Hyperglycemic (HCC) Discharge Disposition: Home or Self Care 2 Clinical Communication Department of Family Medicine, [facility], [address] [address] Ludmila Rose APRN, C.N.P., M.S. 2 Refill Department of Family Medicine, [facility], [address] [address] Ludmila Rose APRN, C.N.P., M.S. Med Refill 2 Clinical Communication Department of Family Medicine, [facility], [address] [address] Ludmila Rose APRN, C.N.PDouglas, M.S. 2 Refill Department of Family Medicine, [facility], in [address] [place] [address] Ludmila Rose APRN, C.N.P., M.S. Med Refill 2 Clinical Communication Department of Family Medicine, [facility], in [address] [place] [address] Ludmila Rose APRN, C.N.P., M.S. 2 Clinical Communication Department of Family [facility], [facility], in [address] [place] [address] Ludmila Rose APRN, C.N.P., M.S. Communication (Call Iris @ [facility]) 2 Clinical Communication Department of Family [facility], [facility], in [address] [place] [address] Ludmila Rose APRN, C.N.P., M.S. Communication (Call Iris @ [facility]) 2 Refill Department of Family [facility], [facility], in [address] [place] [address] Ludmila Rose APRN, C.N.P., M.S. Med Refill 2 Clinical Communication Department of Family [facility], [facility], in [address] [place] [address] Ludmila Rose APRN, C.N.P., M.S. Communication; Med Refill 2 Clinical Communication Department of Cardiovascular Diseases in [address] [place] [address] Katharine Cheema APRN C.N.P., D.N.P. Tachy episode detected on LINQ 2 2:00 AM CDT - 2 11:59 PM CDT Hospital Encounter Department of Cardiovascular Diseases in [place] [id number] [place] [address] Charles Bermudez M.D. Discharge Disposition: Home or Self Care 2 Clinical Communication Department of Family Medicine, [facility], [address] [place] [address] Ludmila Rose APRN, C.N.P., M.S. Diabetes 2 Clinical Communication Department of Family Medicine, [facility], [address] [place] [address] Ludmila Rose APRN, C.N.P., M.S. Diabetes 2 Refill Department of Family [facility], [facility], [address] [place] [address] Ludmila Rose APRN, C.N.P., M.S. Med Refill (multiple) 2 Clinical Communication Department of Family [facility], [facility], [address] [place] [address] Ludmila Rose APRN, C.N.P., M.S. Communication (Pharmacy change and two meds need prior auth ) 2 Refill Department of Family [facility], [facility], [address] [place] [address] Ludmila Rose APRN, C.N.P., M.S. Med Refill 2 Orders Only Department of Family Medicine, [facility], [address] [place] [address] Ludmila Rose APRN C.N.P., M.S. 2 Intake [facility] 2 12:50 AM GLOBAL CEO - 2 1:56 AM GLOBAL CEO Emergency [facility] [address] [place] [address], [place] [address] Bela Sauceda P.A.-C. Acute Abdomen (Primary Dx) Discharge Disposition: Home or Self Care 2 Refill Department of Family Medicine, [facility], [address] [place] [address] Ludmila Rose APRN, C.N.P., M.S. Med Refill 2 1:01 PM GLOBAL CEO - 2 11:59 PM GLOBAL CEO Hospital Encounter Department of Laboratory Medicine in [address] [place] [address] Ludmila Rose APRN, C.N.P., M.S. Diabetes Mellitus Type 2 (HCC) Discharge Disposition: Home or Self Care 2 3:30 PM GLOBAL CEO Office Visit Department of Family Medicine, [facility], [address] [place] [address] Ludmila Rose APRN, C.N.P., M.S. Diabetes Mellitus Type 2 With Diabetic Neuropathy Hyperglycemic (HCC) 2 10:30 AM GLOBAL CEO Anticoagulation Visit Department of Anticoagulation in [address] [place] [address] Ludmila Rose APRN, C.N.P., M.S. 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 Atrial Fibrillation Paroxysmal (HCC) (Primary Dx); Hypotension Orthostatic Autonomic Neurogenic; Syncope 2 3:00 PM GLOBAL CEO Anticoagulation Visit Department of Anticoagulation in [address] [place] [address] Ludmila Rose APRN, C.N.P., M.S. 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 Atrial Fibrillation Paroxysmal (HCC); Halfway (Current) Anticoagulant Treatment; Monitoring For Therapeutic Drug Therapy 2 3:30 PM GLOBAL CEO Anticoagulation Visit Department of Anticoagulation in [address] [place] [address] Ludmila Rose APRN, C.N.P., M.S. 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 2 Clinical Communication Department of Family Medicine, [facility], in [address] [place] [address] Ludmila Rose APRN, C.N.P., M.S. 2 Orders Only Department of Family Medicine, [facility], [address] [place] [address] Ludmila Rose APRN, C.N.P., M.S. Diabetes Mellitus Type 2 With Diabetic Neuropathy Hyperglycemic (HCC) (Primary Dx) 2 Clinical Communication Department of Family Medicine, [facility], in [address] [place] [address] Ludmila Rose APRN, C.N.P., M.S. Diabetes 2 Orders Only Department of Family [facility], [facility], [address] [place] [address] Sheela Asher L.P.N. Diabetes Mellitus Type 2 (HCC) (Primary Dx) 2 Clinical Communication Department of Anticoagulation in [address] [place] [address] Mamie Hanson, R.N. Anticoagulation (POC to restart warfarin) 2 3:00 PM GLOBAL CEO Anticoagulation Visit Department of Anticoagulation in [address] [place] [address] Ludmila Rose APRN, C.N.P., M.S. 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 2 Clinical Communication Department of Anticoagulation in [address] [place] [address] Mamie Hanson, R.N. Appointment 2 Orders Only Department of Anticoagulation in [address] [place] [address] Mamie Hanson, R.N. Monitoring For Therapeutic Drug Therapy (Primary Dx); Atrial Fibrillation Paroxysmal (HCC); Lead Electrician (Current) Anticoagulant Treatment 2 Clinical Communication Department of Family Medicine, [facility], in [address] [place] [address] Ludmila Rose APRN, C.N.PDouglas, M.S. 2 Clinical Communication Department of Cardiovascular Diseases in [address] [phone] Katharine Cheema APRN, C.N.P., D.N.P. Afib with RVR 2 2:00 AM GLOBAL CEO - 2 11:59 PM GLOBAL CEO Hospital Encounter Department of Cardiovascular Diseases in [address] [phone] Fernando Leiva M.D. Discharge Disposition: Home or Self Care 2 Clinical Communication Department of Family Medicine, [facility], [address] [address] Ludmila Rose APRN, C.N.PDouglas, M.S. 2 Clinical Communication Pharmacy Prior Auth RO [phone] Lee Ann Murillo I. Rx Prior Authorization (PA ANDREE EXCEPTION DENIED - ELIQUIS 5 MG TABLETS) 2 Orders Only Pharmacy Prior Auth RO [phone] Lee Ann Murillo I. 2 Orders Only Pharmacy Prior Auth RO [phone] Michelle Godinez 2 Clinical Communication Department of Family [facility], [facility], [address] [address] Ludmila Rose APRN, C.N.P., M.S. 2 Refill Department of Family [facility], [facility], [address] [address] Ludmila Rose APRN, C.N.PDouglas, M.S. Med Refill 2 2:00 AM GLOBAL CEO - 2 11:59 PM GLOBAL CEO Hospital Encounter Department of Cardiovascular Diseases in [address] [place] [address] Charles Bermudez M.D. Syncope (Primary Dx) Discharge Disposition: Home or Self Care 2 Clinical Communication Department of Family [facility], [facility], [address] [place] [address] Ludmila Rose APRN, C.N.P., M.S. Blood Pressure Check (Med increase) 2 3:15 PM GLOBAL CEO Nurse Only Department of Family Medicine, [facility], [address] [place] [address] Ludmila Rose APRN, C.N.P., M.S. Ally Ramos Blood Pressure Check (Med increase) 1 2:49 PM GLOBAL CEO - 1 11:59 PM GLOBAL CEO Hospital Encounter Department of Laboratory Medicine in [address] [address] Ludmila Rose APRN, C.N.P., M.S. Diabetes Mellitus Type 2 With Diabetic Neuropathy Hyperglycemic (HCC) Discharge Disposition: Home or Self Care 1 2:30 PM GLOBAL CEO Office Visit Department of Family Medicine, [facility], [address] [place] [address] Ludmila Rose APRN, C.N.P., M.S. Depression Major One Episode Moderate (HCC) (Primary Dx); Diabetes Mellitus Type 2 With Diabetic Neuropathy Hyperglycemic (HCC); Hypertension And Chronic Kidney Disease Stage 2 1 Orders Only [facility] Ludmila Rose APRN, C.N.P., M.S. 1 Refill Department of Family Medicine, [facility], [address] [place] [address] Ludmila Rose APRN, C.N.P., M.S. Med Refill 1 Refill Department of Family Medicine, [facility], [address] [place] [address] Ludmila Rose APRN, C.NDouglasPDouglas, M.S. Med Refill 1 Refill Department of Family Medicine, [facility], [address] [place] [address] Ludmila Rose APRN, C.N.P., M.S. Med Refill (Relion Novolin 70/30 Flexpen) 1 Refill Department of Family Medicine, [facility], [address] [place] [address] Ludmila Rose APRN, C.N.P., M.S. Med Refill (NovoLin 70/30) 1 12:44 PM CDT - 1 11:59 PM CDT Hospital Encounter Department of Cardiovascular Diseases in [address] [address] Fernando Leiva M.D. Syncope Discharge Disposition: Home or Self Care 1 Clinical Communication Department of Cardiovascular Diseases in [address] [address] Debra Lopez APRN, C.N.P., M.S.N., R.N. 1 2:00 AM CDT - 1 11:59 PM CDT Hospital Encounter Department of Cardiovascular Diseases in [address] [address] Fernando Leiva M.D. Syncope Discharge Disposition: Home or Self Care 1 4:16 PM CDT - 1 6:16 PM CDT Emergency [facility] [address] [place] [address], [place] [address] Bruce Medrano P.A.-C. Vomiting (Primary Dx); Hyperglycemia Discharge Disposition: Home or Self Care 1 Refill Department of Family [facility], [facility], [address] [place] [address] Ludmila Rose APRN, C.N.P., M.S. Med Refill 1 Refill Department of [facility], [facility], [address] [place] [address] Ludmila Rose APRN C.N.P., M.S. Med Refill 1 2:30 PM CDT Office Visit Department of [facility], [facility], [address] [place] [address] Ludmila Rose APRN, C.N.P., M.S. Depression Major One Episode Moderate (HCC) (Primary Dx); Hematuria; Diabetes Mellitus Type 2 With Diabetic Neuropathy Hyperglycemic (HCC) 1 Clinical Communication Department of [facility], [facility], [address] [place] [address] Ludmila Rose APRN C.N.P., M.S. Communication (er visit 12/01 ) 1 7:22 PM CDT - 1 9:15 PM CDT [facility] [address] [place] [address], [place] [address] Bella Foster P.A.-C. Schumacher, Lori R, P.A.-C. Infection Urinary Tract (Primary Dx); Hematuria Discharge Disposition: Home or Self Care 1 Clinical Communication Department of [facility], [facility], [address] [place] [address] Ludmila Rose APRN, C.N.P., M.S. Medication Problem 1 Refill Department of Family Medicine, [facility], in [address] [place] [address] Ludmila Rose APRN, C.N.PDouglas, M.S. Med Refill 1 Refill Department of Family [facility], [facility], in [address] [place] [address] Ludmila Rose APRN, C.N.PDouglas, M.S. Med Refill 1 Refill Department of Family [facility], [facility], in [address] [place] [address] Ludmila Rose APRN, C.N.P., M.S. Med Refill 1 Clinical Communication Department of Family [facility], [facility], in [address] [place] [address] Delmi Rios, R.N. 1 Refill Department of [facility], [facility], in [address] [place] [address] Delmi Rios, R.N. Med Refill (Multiple refills ) 1 Refill Department of Family [facility], [facility], in [address] [place] [address] Ludmila Rose APRN, C.N.P., M.S. Med Refill (True Metrix Control solution #1) 1 Refill Department of [facility], [facility], in [address] [place] [address] Ludmila Rose APRN, C.N.P., M.S. Med Refill 1 Clinical Communication Department of Family Medicine, [facility], in [address] [place] [address] Ludmila Rose APRN, C.N.P., M.S. Communication (missed call) 1 Refill Department of Family Medicine, [facility], in [address] [place] [address] Ludmila Rose APRN, C.N.PDouglas, M.S. Med Refill 1 Refill Department of Family Medicine, [facility], [address] [place] [address] Ludmila Rose APRN, C.N.P., M.S. Med Refill 1 Clinical Communication Department of Family [facility], [facility], in [address] [place] [address] Ludmila Rose APRN, C.N.P., M.S. 1 2:30 PM CDT Office Visit Department of Family Medicine, [facility], [address] [place] [address] Ludmila Rose APRN, C.N.P., M.S. Diabetes Mellitus Type 2 With Diabetic Neuropathy Hyperglycemic (HCC) (Primary Dx); Hypertension And Chronic Kidney Disease Stage 2; Atrial Fibrillation Paroxysmal (HCC); Depression Major One Episode Moderate (HCC) 1 1:20 PM CDT - 1 11:59 PM CDT Hospital Encounter Department of Laboratory Medicine in [address] [place] [address] Ludmila Rose APRN, C.N.P., M.S. Diabetes Mellitus Type 2 With Diabetic Neuropathy Hyperglycemic (HCC) Discharge Disposition: Home or Self Care 1 Clinical Communication Department of Cardiovascular Diseases in [address] [place] [address] Katharine Cheema APRN, C.N.Kemar, D.N.P. Pause Episode 1 2:00 AM CDT - 1 11:59 PM CDT Hospital Encounter Department of Cardiovascular Diseases in [address] [address] Fernando Leiva M.D. Syncope Discharge Disposition: Home or Self Care 1 Orders Only Department of Cardiovascular Diseases in [address] [address] Zofia Eli R.N. Syncope (Primary Dx) 1 Refill Department of Family Medicine, [facility], [address] [address] Ludmila Rose APRN, C.N.Stephan., M.S. Med Refill 1 Clinical Communication Department of Family Medicine, [facility], [address] [place] [address] Ludmila Rose APRN C.N.P., M.S. Communication (question about humana ) 1 Clinical Communication Department of Cardiovascular Diseases in [address] [address] Katharine Cheema APRN, C.N.P., D.N.P. Pause detected on LINQ 1 2:00 AM CDT - 1 11:59 PM CDT Hospital Encounter Department of Cardiovascular Diseases in [address] [address] Charles Bermudez M.D. Syncope Discharge Disposition: Home or Self Care 1 2:00 PM CDT Medication Management Department of Family [facility] in [address] [address] Ludmila Rose APRN, C.N.P., M.S. Rayna Nunez, Fadi., R.Ph. Depression Major One Episode Moderate (HCC) 1 Orders Only [facility] [address] [place] [address] Ludmila Rose APRN, C.N.Stephan., M.S. 1 Orders Only Department of Family Medicine, [facility], [address] [address] Ludmila Rose APRN, C.N.Stephan., M.S. Depression Major One Episode Moderate (HCC) (Primary Dx) 1 Clinical Communication Department of Family [facility], [facility], [address] [address] Ludmila Rose APRN, C.N.P., M.S. Communication (Diabetes Supplies) 1 10:45 AM CDT Comprehensive Visit Department of Orthopedic Surgery in [address] [phone] Andres Squires Diabetes Mellitus Type 2 With Diabetic Neuropathy Hyperglycemic (HCC) 1 2:00 AM CDT - 1 11:59 PM CDT Hospital Encounter Department of Cardiovascular Diseases in [address] [phone] Fernando Leiva M.D. Syncope Discharge Disposition: Home or Self Care 1 1:00 PM CDT Office Visit Department of [facility], [facility], [address] [address] Ludmila Rose APRN, C.N.P., M.S. Diabetes Mellitus Type 2 With Diabetic Neuropathy Hyperglycemic (HCC) (Primary Dx); Hypertension Essential Primary 1 12:44 PM CDT - 1 11:59 PM CDT Hospital Encounter Department of Laboratory Medicine in [address] [place] [address] Ludmila Rose APRN, C.N.P., M.S. Diabetes Mellitus Type 2 With Diabetic Neuropathy Hyperglycemic (HCC) Discharge Disposition: Home or Self Care 1 12:44 PM CDT - 1 11:59 PM CDT Hospital Encounter Department of Laboratory Medicine in [place] [address] [address] [facility] [place] [address] Ludmila Rose APRN, C.N.P., M.S. Diabetes Mellitus Type 2 With Diabetic Neuropathy Hyperglycemic (HCC); Depression Major One Episode Moderate (HCC) Discharge Disposition: Home or Self Care 1 Nurse Triage Department of Family Medicine in [place], [place] [address] [facility] [place] [address] Loida Handley R.N. Injections 1 Clinical Communication Division of [facility], [facility] in [place], [place] [address] [place] [address] Josselyn Massey R.N. COVID Nurse Line 1 Refill Department of Cardiovascular Diseases in [place], [place] [address] [place] [address] Katharine Cheema APRN, C.N.P., D.N.P. Med Refill 1 Orders Only Department of Family Medicine, [facility], [address] [place] [address] Ludmila Rose APRN, C.N.P., M.S. 1 Refill Department of Family Medicine, [facility], [place] [address] [facility] [place] [address] Ludmila Rose APRN, C.N.P., M.S. Med Refill 1 Clinical Communication Department of Family [facility], [facility], in [address] [place] [address] Ludmila Rose APRN, C.N.P., M.S. Communication (results of colonoscopy ) 1 Clinical Communication Department of [facility], [facility], [address] [place] [address] Ludmila Rose APRN, Thiago.Stephan., M.S. Communication (results ) 1 Clinical Communication Department of [facility], [facility], in [address] [place] [address] Ludmila Rose APRN, C.N.Stephan., M.S. 1 2:05 PM CDT Ancillary Procedure Department of Gastroenterology 1 1:30 PM CDT Ancillary Procedure Department of Gastroenterology 1 1:35 PM CDT Anesthesia Event Department of Gastroenterology in [address] [address] Mayra Werner APRN, BUTCH 1 1:45 PM CDT - 1 2:15 PM CDT Surgery Department of Gastroenterology in [address] [address] Edgar Hargrove M.D. COLONOSCOPY 1 12:53 PM CDT - 1 2:58 PM CDT Hospital Encounter Department of Gastroenterology in [address] [address] Edgar Hargrove M.D. Discharge Disposition: Home or Self Care 1 Clinical Communication Department of Family [facility], [facility], in [address] [place] [address] Ludmila Rose APRN, C.N.P., M.S. 1 3:55 PM CDT - 1 4:25 PM CDT Surgery Department of Gastroenterology in [address] [place] [address] Edgar Hargrove M.D. Not Performed COLONOSCOPY 1 2:36 PM CDT - 1 3:14 PM CDT Hospital Encounter Department of Gastroenterology in [address] [place] [address] Edgar Hargrove M.D. Discharge Disposition: Home or Self Care 1 Refill Department of Family Medicine, [facility], [address] [place] [address] Ludmila Rose APRN, C.N.P., M.S. Control solution to check blood sugars 1 Refill Department of Family Medicine, [facility], [address] [place] [address] Ludmila Rose APRN, C.N.P., M.S. Med Refill 1 Refill Department of Family [facility], [facility], [address] [place] [address] Mariah Kulkarni R.N. Med Refill (Nulytely pend) 1 Orders Only Department of Family Medicine, [facility], [address] [place] [address] Ludmila Rose APRN C.N.P., M.S. 1 Clinical Communication Department of Family [facility], [facility], [address] [place] [address] Ludmila Rose APRN, C.N.P., Santiago Meade hold for Colonoscopy 07/14/20; Communication (Informed patient of Deshaun plan;colonoscopy prep) 1 Refill Department of Family Medicine, [facility], [address] [place] [address] Ludmila Rose APRN, C.N.P., M.S. Med Refill 1 Refill Department of Family Medicine, [facility], [address] [place] [address] Ludmila Rose APRN, C.N.P., M.S. Med Refill 1 Refill Department of [facility], [facility], [address] [place] [address] Ludmila Rose APRN, C.N.P., M.S. Med Refill (multiple meds ) 1 Refill Department of [facility], [facility], [address] [place] [address] Ludmila Rose APRN, C.N.P., M.S. Med Refill 1 Refill Department of [facility], [facility], [address] [place] [address] Ludmila Rose APRN, C.N.P., M.S. Med Refill 1 Orders Only Pharmacy Prior Auth RO [phone] Ludmila Rose APRN, C.N.P., M.S. 1 Clinical Communication Department of [facility], [facility], in [address] [place] [address] Ludmila Rose APRN, C.N.P., M.S. Rx Prior Authorization (DENIAL OF TADALAFIL 5MG TABS) 1 Orders Only Department of Family [facility], [facility], in [address] [place] [address] Ludmila Rose APRN, Viktoria.N.P., M.S. Depression Major One Episode Moderate (HCC) (Primary Dx); Positive Cologuard Stool Deoxyribonucleic Acid Test 1 Orders Only [facility] Gwyn Garcia Jr., M.D. 1 Clinical Communication Department of Family Medicine, [facility], in [address] [place] [address] Ludmila Rose APRN, Viktoria.N.P., M.S. 1 Orders Only Department of Family [facility], [facility], in [address] [place] [address] Ludmila Rose APRN, C.N.P., M.S. 1 Clinical Communication Department of Family [facility], [facility], in [address] [place] [address] Ludmila Rose APRN, C.N.P., M.S. 1 Orders Only Department of Family [facility], [facility], in [address] [place] [address] Ludmila Rose APRN, C.N.P., M.S. 1 Clinical Communication Department of Family [facility], [facility], in [address] [place] [address] Ludmila Rose APRN, C.N.P., M.S. Communication (Call Ernestina @ [facility] patient assistance) 1 Orders Only Department of Family [facility], [facility], in [address] [place] [address] Ludmila Rose APRN, C.NDouglasP., M.S. 1 Clinical Communication Department of Family Medicine, [facility], [address] [place] [address] Ludmila Rose APRN, C.N.Stephan., M.S. 1 9:00 AM GLOBAL CEO Medication Management Department of Family [facility] in [address] [address] Ludmila Rose APRN, C.N.P., M.S. Rayna Nunez, Fadi., R.Ph. Diabetes Mellitus Type 2 With Diabetic Neuropathy Hyperglycemic (HCC) 1 2:00 AM GLOBAL CEO - 1 11:59 PM GLOBAL CEO Hospital Encounter Department of Cardiovascular Diseases in [address] [address] Charles Bermudez M.D. Syncope Discharge Disposition: Home or Self Care 1 4:00 PM GLOBAL CEO Office Visit Department of Family Medicine, [facility], [address] [address] Ludmila Rose APRN, C.N.P., M.S. Diabetes Mellitus Type 2 With Diabetic Neuropathy Hyperglycemic (HCC) (Primary Dx); Obesity Body Mass Index 30-39.9 Adult; Depression Major One Episode Moderate (HCC); Dysfunction Erectile 1 4:30 PM GLOBAL CEO - 1 11:59 PM GLOBAL CEO Hospital Encounter Department of Laboratory Medicine in [address] [address] Ludmila Rose APRN, C.N.P., M.S. Diabetes Mellitus Type 2 With Diabetic Neuropathy Hyperglycemic (HCC); Hypertension Essential Primary Discharge Disposition: Home or Self Care 1 Refill Department of Family Medicine, [facility], [address] [address] Ludmila Rose APRN, C.N.P., M.S. Communication (more info needed on [employer] Patient Assistance paperwork; nursing not able to reach patient) 1 Clinical Communication Department of Family Medicine, [facility], [address] [place] [address] Ludmila Rose APRN, Viktoria.N.P., M.S. Insurance Patient Assistance Form (Form for Insulin assisstance for insulin) 1 Refill Department of Cardiovascular Diseases in [address] [place] [address] Katharine Cheema APRN, C.N.P., D.N.P. Med Refill 1 Clinical Communication Department of Family [facility], [facility], [address] [place] [address] Jennifer Rhodes L.P.N. Colonoscopy 1 Refill Department of Family [facility], [facility], [address] [place] [address] Ludmila Rose APRN, C.N.PDouglas, M.S. Med Refill 1 1:00 PM GLOBAL CEO Medication Management Department of Family [facility] in [address] [place] [address] Ludmila Rose APRN C.N.P., M.S. Rayna Nunez, Fadi., R.Ph. Diabetes Mellitus Type 2 With Diabetic Neuropathy Hyperglycemic (HCC) 1 Refill Department of Family Medicine, [facility], [address] [place] [address] Ludmila Rose APRN, C.N.P., M.S. Med Refill 1 9:30 AM GLOBAL CEO Office Visit Department of Family Medicine in [address] [place] [address] Ludmila Rose APRN, C.N.P., M.S. Rayna Nunez Pharm.D., R.Ph. Diabetes Mellitus Type 2 With Diabetic Neuropathy Hyperglycemic (HCC) 1 Clinical Communication Department of Family Medicine, [facility], [address] [place] [address] Ludmila Rose APRN C.N.P., M.S. 1 Refill Department of Family [facility], [facility], [address] [place] [address] Ludmila Rose APRN, C.N.P., M.S. Med Refill 1 Orders Only Department of Family Medicine, [facility], in [address] [place] [address] Ludmila Rose APRN C.N.P., M.S. 1 Refill Department of Family Medicine, [facility], [address] [place] [address] Ludmila Rose APRN C.N.P., M.S. Med Refill 1 10:45 AM GLOBAL CEO Office Visit Department of Cardiovascular Diseases in [address] [place] [address] Katharine Cheema APRN, C.N.P., D.N.P. Atrial Fibrillation Paroxysmal (HCC) (Primary Dx); Hyperlipidemia; Hypertension Essential Primary; Obstructive Sleep Apnea Adult 0 Refill Department of Family Medicine, [facility], [address] [place] [address] Ludmila Rose APRN, C.N.PDouglas, M.S. Med Refill 0 Orders Only Department of Family Medicine, [facility], [address] [place] [address] Ludmila Rose APRN C.N.P., M.S. Diabetes Mellitus Type 2 With Diabetic Neuropathy Hyperglycemic (HCC) (Primary Dx) 0 Clinical Communication Department of Family Medicine, [facility], [address] [place] [address] Ldumila Rose APRN, C.N.PDouglas, M.S. 0 Refill Department of Family [facility], [facility], [address] [place] [address] Ludmila Rose APRN C.N.P., M.S. Med Refill 0 2:00 AM GLOBAL CEO - 0 9:15 AM GLOBAL CEO Hospital Encounter Department of Cardiovascular Diseases in [address] [address] Fernando Leiva M.D. Atrial Fibrillation (HCC) Discharge Disposition: Home or Self Care 0 9:16 AM GLOBAL CEO - 0 11:59 PM GLOBAL CEO Hospital Encounter Department of Cardiovascular Diseases in [address] [address] Katharine Cheema APRN, C.N.P., D.N.P. Atrial Fibrillation Paroxysmal (HCC) Discharge Disposition: Home or Self Care 0 2:00 AM GLOBAL CEO - 0 11:59 PM GLOBAL CEO Hospital Encounter Department of Cardiovascular Diseases in [address] [address] Charles Bermudez M.D. Discharge Disposition: Home or Self Care 0 3:30 PM GLOBAL CEO Office Visit Department of Family Medicine, [facility], in [address] [place] [address] Ludmila Rose APRN, C.N.P., M.S. Diabetes Mellitus Type 2 With Diabetic Neuropathy Hyperglycemic (HCC) (Primary Dx); Screening Cancer Colon; Hypertension Essential Primary; Pain Low Back 0 Refill Department of Family [facility], [facility], in [address] [place] [address] Ludmila Rose APRN, C.N.P., M.S. Med Refill 0 2:00 PM GLOBAL CEO - 0 11:59 PM GLOBAL CEO Hospital Encounter Department of Laboratory Medicine in [address] [place] [address] Ludmila Rose APRN, C.N.P., M.S. Diabetes Mellitus Type 2 With Diabetic Neuropathy Hyperglycemic (HCC) Discharge Disposition: Home or Self Care 0 Refill Department of Family Medicine, [facility], in [address] [place] [address] Ludmila Rose APRN, Viktoria.N.P., M.S. Med Refill 0 Clinical Communication Department of Family [facility], [facility], in [address] [place] [address] Ludmila Rose APRN, C.N.P., M.S. Communication (Diabetes blood sugar logs) 0 Orders Only Department of Family [facility], [facility], in [address] [place] [address] Ludmila Rose APRN, C.N.P., M.S. 0 Orders Only Department of Family Medicine, [facility], in [address] [place] [address] Ludmila Rose APRN, C.N.PDouglas, M.S. 0 Refill Department of Family Medicine, [facility], [address] [place] [address] Ludmila Rose APRN, C.N.PDouglas, M.S. Med Refill 0 Clinical Communication Department of Cardiovascular Diseases in [address] [place] [address] Fernando Leiva M.D. AF rates on summary report 0 2:00 AM CDT - 0 11:59 PM CDT Hospital Encounter Department of Cardiovascular Diseases in [address] [place] [address] Fernando Leiva M.D. Discharge Disposition: Home or Self Care 0 Refill Department of Family Medicine, [facility], [address] [place] [address] Ludmila Rose APRN, C.N.PDouglas, M.S. Med Refill 0 Orders Only Department of Family [facility], [facility], [address] [place] [address] Ludmila Rose APRN, Viktoria.N.P., M.S. 0 Clinical Communication Department of Family [facility], [facility], [address] [place] [address] Ludmila Rose APRN, C.N.P., M.S. Communication (blood sugar log) 0 Clinical Communication Department of Family [facility], [facility], [address] [place] [address] Ludmila Rose APRN, C.N.P., M.S. 0 1:30 PM CDT Office Visit Department of Family Medicine, [facility], in [address] [address] Ludmila Rose APRN C.N.P., M.S. Diabetes Mellitus Type 2 With Diabetic Neuropathy Hyperglycemic (HCC) (Primary Dx); Hypertension Essential Primary; Atrial Fibrillation Paroxysmal (HCC); Tinea Corporis; Hyperlipidemia 0 12:42 PM CDT - 0 11:59 PM CDT Hospital Encounter Department of Laboratory Medicine in [address] [address] Ludmila Rose APRN, C.N.P., M.S. Diabetes Mellitus Type 2 With Diabetic Neuropathy Hyperglycemic (HCC); Hypertension Essential Primary; Diabetes Mellitus Type 2 With Diabetic Neuropathy Hyperglycemic (HCC) Discharge Disposition: Home or Self Care 0 9:33 AM CDT - 0 11:59 PM CDT Hospital Encounter Department of Radiology, [facility], [address] [address] Katharine Cheema APRN, C.N.P., D.N.P. Discharge Disposition: Home or Self Care 0 9:33 AM CDT - 0 11:59 PM CDT Hospital Encounter Department of Cardiovascular Diseases [address] [address] Katharine Cheema APRN, C.N.P., D.N.P. Discharge Disposition: Home or Self Care 0 9:32 AM CDT Hospital Encounter Department of Radiology, [facility], [address] [address] Katharine Cheema APRN, C.N.P., D.N.P. Atrial Fibrillation Paroxysmal (HCC); Hyperlipidemia; Hypertension Essential Primary Discharge Disposition: Home or Self Care 0 Clinical Communication Department of Cardiovascular Diseases in [address] [address] Katharine Cheema APRN, C.N.P., D.N.P. 0 Orders Only [facility] M[facility] Ludmila Rose APRN, C.N.P., M.S. Diabetes Mellitus Type 2 With Diabetic Neuropathy Hyperglycemic (HCC) 0 Refill Department of Family Medicine, [facility], [address] [address] Ludmila Rose APRN, Viktoria.N.P., M.S. Med Refill 0 Clinical Communication Department of Family Medicine, [facility], [address] [address] Ludmila Rose APRN, C.N.P., M.S. checking on fax 0 1:24 PM CDT - 0 11:59 PM CDT Hospital Encounter Department of Cardiovascular Diseases in [address] [phone] Katharine Cheema APRN, C.N.P., D.N.P. Syncope Discharge Disposition: Home or Self Care 0 2:00 PM CDT Office Visit Department of Cardiovascular Diseases in [address] [phone] Katharine Cheema APRN, C.N.P., D.N.P. Atrial Fibrillation Paroxysmal (HCC) (Primary Dx); Hyperlipidemia; Hypertension Essential Primary; Hypotension Orthostatic Autonomic Neurogenic; Obstructive Sleep Apnea Adult; Syncope 0 Orders Only Department of Family Medicine, [facility], [address] [address] uLdmila Rose APRN, C.N.P., M.S. 0 Refill Department of Family [facility], [facility], in [address] [place] [address] Ludmila Rose APRN, C.N.Stephan., M.S. Med Refill 0 Clinical Communication Department of Family [facility], [facility], in [address] [place] [address] Adam Ko M.D. 0 Refill Department of Family [facility], [facility], [address] [place] [address] Ludmila Rose APRN, C.N.P., M.S. Med Refill 0 Clinical Communication Department of [facility], [facility], [address] [place] [address] Ludmila Rose APRN, C.N.P., M.S. 0 1:29 PM CDT - 0 11:59 PM CDT Hospital Encounter Department of Laboratory Medicine in [address] [place] [address] Ludmila Rose APRN C.N.P., M.S. High Risk Medication Discharge Disposition: Home or Self Care 0 Orders Only Department of Cardiovascular Diseases in [address] [place] [address] Blessing Babin M.S., P.A.-C. 0 Clinical Communication Department of Cardiovascular Diseases in [address] [place] [address] Blessing Babin M.S., P.A.-C. Afib with RVR 0 2:00 AM CDT - 0 11:59 PM CDT Hospital Encounter Department of Cardiovascular Diseases in [address] [address] Charles eBrmudez M.D. Syncope Discharge Disposition: Home or Self Care 0 9:30 AM CDT Medication Management [place] [address] [place] [address] Elva Olivier, Pharm.D., BCACP, R.Ph. Diabetes Mellitus Type 2 Without Complication (HCC) (Primary Dx); Atrial Fibrillation Chronic; Hyperlipidemia; Diabetes Mellitus Type 2 With Diabetic Neuropathy Hyperglycemic (HCC) 0 Orders Only Department of Family Medicine, [facility], [address] [address] Ludmila Rose APRN, C.N.P., M.S. 0 Orders Only Department of Family Medicine, [facility], [address] [address] Ludmila Rose APRN, C.N.P., M.S. High Risk Medication (Primary Dx) 0 Orders Only Department of Cardiovascular Diseases in [address] [address] Katharine Cheema APRN, C.N.P., D.N.P. 0 1:[address] PM CD[address] Medication Management [facility] in [place] [address] [place] [address] Elva Olivier, PharmBarbra, BCACP, R.Ph. Atrial Fibrillation Chronic; Diabetes Mellitus Type 2 With Diabetic Neuropathy Hyperglycemic (HCC) 0 Clinical Communication Department of Cardiovascular Diseases in [address] [address] Charles Bermudez M.D. Follow-up 0 2:00 AM CDT - 0 11:59 PM CDT Hospital Encounter Department of Cardiovascular Diseases in [address] [place] [address] Charles Bermudez M.D. Syncope Discharge Disposition: Home or Self Care 0 Clinical Communication Department of Anticoagulation in [address] [address] Ann-Marie Harrington R.N. Anticoagulation (DOAC) 0 Clinical Communication Department of Family Medicine, [facility], in [address] [address] Ludmila Rose APRN, C.N.P., M.S. 0 12:40 PM CDT - 0 11:59 PM CDT Hospital Encounter Department of Laboratory Medicine in [address] [place] [address] Ludmila Rose APRN, C.N.P., M.S. Diabetes Mellitus Type 2 With Diabetic Neuropathy Hyperglycemic (HCC) Discharge Disposition: Home or Self Care 0 12:30 PM CDT - 0 12:39 PM CDT Hospital Encounter Department of Laboratory Medicine in [address] [place] [address] Ludmila Rose APRN, C.N.P., M.S. Diabetes Mellitus Type 2 With Diabetic Neuropathy Hyperglycemic (HCC) Discharge Disposition: Home or Self Care 0 3:00 PM CDT Anticoagulation Visit Department of Anticoagulation in [address] [place] [address] Sada Benson APRN, C.N.P., R.N. Atrial Fibrillation Chronic; Halfway Anticoagulant Treatment; Monitoring For Therapeutic Drug Therapy 0 4:15 PM CDT Office Visit Department of Family Medicine, [facility], in [address] [place] [phone] Ludmila Rose APRN C.N.P., M.S. 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 Diabetes (Please change PCP) 0 Clinical Communication Department of [facility], [facility], [address] [place] [address] Ludmila Rose APRN, C.N.P., M.S. Post Hospital Follow-up 0 Clinical Communication Department of Anticoagulation in [address] [place] [address] Ann-Marie Harrington RBrenda Anticoagulation (No show INR check) 0 Clinical Communication Department of Anticoagulation in [address] [place] [phone] Fernanda Perea R.N. 0 Clinical Communication Department of Family Medicine, [facility], [place] [address] [facility] [place] [address] Ludmila Rose APRN, C.N.P., M.S. Post Hospital Follow-up 0 10:12 AM CDT - 0 11:27 AM CDT Surgery Department of Cardiovascular Diseases in [address] [address] Charles Bermudez M.D. LOOP RECORDER IMPLANT - LINQ [[id number]] 0 11:54 PM CDT - 0 4:18 PM CDT Hospital Encounter [facility], [facility], Third Floor [address] [place] [address] Augustine Kothari M.D. Kumar, Parveen, M.D. Storvick, Eric, M.D. Atrial Fibrillation Chronic (Primary Dx); Syncope Discharge Disposition: Home or Self Care 0 Intake [facility] 0 7:18 PM CDT - 0 11:39 PM CDT Emergency [facility] [address] [place] [phone] Darlene Vickers, KINGS, C.N.P., D.N.P. Syncope And Collapse (Primary Dx); Hypomagnesemia; Atrial Fibrillation (HCC) Discharge Disposition: Acute Care Hospital Allergies No known active allergies Medications ketoconazole (NIZORAL) 2 % shampoo Apply 1 application topically as needed. 9 Active acetaminophen (TYLENOL) 500 mg tablet Take 500 mg by mouth every 6 (six) hours as needed. Active blood pressure monitor kitIndications:Hy pertension Essential Primary,Atrial Fibrillation Paroxysmal (HCC),Syncope Use blood pressure machine/cuff to check blood pressure twice per day. ICD10: I10, I48.0, R55 1 each 0 Active TRUEplus Lancets 33 gauge misc Inject 1 each under the skin 2 (two) times a day. E11.65 60 each 11 1 Active alcohol swabs pads, medicated Apply 1 each topically daily. Dx code E11.40 100 each 3 1 Active True Metrix Glucose Meter kit USE DIRECTED 1 kit 1 Active blood glucose ctl high,nml,low solution 1 Bottle as directed. True Metrix Level 1 control solution. Use as directed 1 each 2 2 Active blood sugar diagnostic (glucose blood) stripsIndications :Diabetes Mellitus Type 2 With Diabetic Neuropathy Hyperglycemic (HCC) Use to check blood sugar twice daily. 200 strip 3 2 Active pen needle, diabetic (Droplet Pen Needle) 32 gauge x 5/32 needleIndications :Diabetes Mellitus Type 2 With Diabetic Neuropathy Hyperglycemic (HCC) Use twice daily. 200 each 3 3 Active blood sugar diagnostic strips (Accu-Chek Regina Plus test strp) 1 test 2 (two) times a day before breakfast and dinner. E11.40 E11.65 Use to test blood sugar 180 test 3 3 Active blood glucose control, normal (Glucose Control) solution Use to check blood sugar once daily. E11.65 Dispense 1 bottle 1 each 3 3 Active blood glucose control, low (True Metrix Level 1) solution E11.65 Use solution to test Glucose machine/strips as advised by manufacture. One bottle per 90 days. 1 each 3 3 Active HYDROcodone-aceta minophen (NORCO) 5-325 mg per tablet Take 1 tablet by mouth 4 (four) times a day as needed for pain. 3 Active traZODone (DESYREL) 150 mg tablet Take 150 mg by mouth at bedtime as needed for sleep. 3 Active insulin NPH/regular human 70/30 (NovoLIN 70-30 FlexPen U-100) 100 unit/mL (70-30) injection Inject 43 Units under the skin 2 (two) times a day. 18 mL 11 3 Active atorvastatin (LIPITOR) 20 mg tablet take 1 tablet daily 90 tablet 3 4 Active metFORMIN (GLUCOPHAGE) 1,000 mg tablet TAKE 1 TABLET TWICE DAILY WITH MEALS 180 tablet 3 4 Active OneTouch Delica Plus Lancet 30 gauge misc USE AND DISCARD 1 LANCET 2 TIMES DAILY 200 each 3 4 Active metoprolol succinate (TOPROL-XL) 50 mg 24 hr tablet TAKE 1 TABLET (50 MG TOTAL) BY MOUTH 2 (TWO) TIMES A DAY. DO NOT CRUSH OR CHEW. 180 tablet 3 4 Active glipiZIDE (GLUCOTROL) 10 mg tabletIndications :Diabetes Mellitus Type 2 With Diabetic Neuropathy (HCC) Take 1 tablet (10 mg total) by mouth 2 (two) times a day before breakfast and dinner. 60 tablet 11 4 Active pioglitazone (ACTOS) 45 mg tabletIndications :Diabetes Mellitus Type 2 With Diabetic Neuropathy (HCC) Take 1 tablet (45 mg total) by mouth daily. 90 tablet 3 4 Active apixaban (ELIQUIS) 5 mg tabletIndications :Atrial Fibrillation Paroxysmal (HCC) Take 1 tablet (5 mg total) by mouth 2 (two) times a day. 180 tablet 3 4 Active dilTIAZem CD (CARDIZEM CD/CARTIA XT) 360 mg 24 hr capsuleIndication s:Hypertension And Chronic Kidney Disease Stage 2 Take 1 capsule (360 mg total) by mouth daily. 90 capsule 3 4 Active losartan (COZAAR) 50 mg tabletIndications :Hypertension And Chronic Kidney Disease Stage 2 Take 1 tablet (50 mg total) by mouth daily. 90 tablet 3 4 Active blood-glucose sensor (FreeStyle Imelda 3 Sensor) deviceIndications :Diabetes Mellitus Type 2 With Diabetic Neuropathy (HCC) 1 each every 14 (fourteen) days. 6 each 3 4 Active flash glucose scanning reader (FreeStyle Imelda 2 [place])Indication s:Diabetes Mellitus Type 2 With Diabetic Neuropathy (HCC) 1 each (1 Device total) daily. 1 each 4 Active cyclobenzaprine (FlexeriL) 10 mg tablet Take 1 tablet (10 mg total) by mouth at bedtime as needed for muscle spasms. 30 tablet 2 4 Active Active Problems Problem Noted Date Diagnosed Date Injury Shoulder Subsequent Right 12/11/2021 Positive Cologuard Stool Deoxyribonucleic Acid T est 05/30/2020 Overview (05/30/2020): Added automatically from request for surgery [id number] Obesity Body Mass Index 30-39.9 Adult 05/05/2020 Obstructive Sleep Apnea Adult 07/31/2019 Diabetes Mellitus Type 2 With Diabetic Neuropath y 07/18/2019 Hypotension Orthostatic Autonomic Neurogenic Dermatitis Seborrheic 04/26/2018 Prolonged QT Interval 04/19/2017 Anxiety Generalized Disorder 03/03/2016 Chronic Insomnia Disorder 02/02/2016 Dysfunction Erectile 05/12/2015 Depression Major One Episode Moderate 12/13/2014 Pain Low Back Unspecified 12/13/2014 Spondylolysis Lumbar Region 07/23/2014 Atrial Septal Defect Unspecified 05/20/2014 Hyperlipidemia 05/17/2014 Hypertensive Chronic Kidney Disease With Stage 1 Through Stage 4 Chronic Kidney Disease, Or Unspecified Chronic Kidney Disease 05/17/2014 Atrial Fibrillation Paroxysmal Resolved Problems Problem Noted Date Diagnosed Date Resolved Date Screening Cancer Colon 09/10/202106/24 Overview (09/10/2021): Added automatically from request for surgery [id number] Monitoring For Therapeutic Drug Therapy 04/02/2021 05/18/2021 Halfway (Current) Anticoagulant Treatment 04/02/2021 05/18/2021 Noncompliance With Treatment 07/06/2019 05/05/2021 Syncope 07/05/2019 06/28/2023 Problem Related To Housing A nd Economic Circumstances Unspecified 01/01/2019 03/17/2022 Pre Excitation Syndrome 07/15/201406/07 Lead 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 (Current) Anticoagulant Treatment 05/20/2014 07/25/2019 Diabetes Mellitus Type 2 Without Complication 05/18/19 15 02/01/2020 Immunizations Immunization Administration Dates Next Due HepB Adult 11/25/2014,06/24/2014,05/17/2014 Pneumococcal, Unspecified 03/15/2022(Deferred: P atient decision) RZV (SHINGRIX) 12/11/2021(Deferred: Patient linda dumont) SARS-COV-2 (COVID-19) - MODERNA(Discontinued) 06/23/2020 SARS-COV-2 (COVID-19) - PFIZ ER (Discontinued)(12 years or older) 03/15/2022(Deferred: Patient Refused - Refused Booster) Tdap 05/17/2014 influenza vaccine quad (FLUZONE/FLUARIX) (6 months and older)(PF) 03/15/2022(Deferred: Patient Refused) Family History Medical History Relation Name Comments Alcohol abuse Father Angus Amato Alcohol abuse Father's Brother Charles Amato Lyphnode cancer Alcohol abuse Mother BySkin- melanoma Melanoma Mother BySkin- melanoma Skin cancer Mother BySkin- melanoma Transient ischemic attack Mother BySkin- melanom a Stroke Mother's Brother 1 Rishi Curtis Eyeliptca l Stroke Diabetes Mother's Brother 2 Nawaf Curtis Alcoholic Relation Name Status Comments Father Angus Amato Father's Brother Charles Amato Mother BySkin- melanoma Mother's Brother 1 Rishi Curtis Mother's Brother 2 Nawaf Curtis Social History Smoking Status as of 11/12/2024 Tobacco Use Types Packs/Day Years Used Date Smoking Tobacco: Never Assessed [facility] Utilities Answer Date Recorded In the past 12 months has e [employer], gas, oil, or water company threatened to [...] your living situation today? I have a [facility] place to live 04/28/2023 Education Answer Date Recorded What is the highest level of school you have completed or the highest degree you have received? Associate degree: occupational, technical, or vocational program 01/11/2022 Sex and Gender Information Value Date Recorded Sex Assigned at Male 11/04/2020 3:10 PM CDT Legal Sex Male 11:05 PM GLOBAL CEO Gender Identity Male 11/04/2020 3:10 PM CDT Sexual Orientation Straight 11/04/2020 3: 10 PM CDT Last Filed Vital Signs Vital Sign Reading Time Taken Comments Blood Pressure 124/86 06/28/2023 3:06 PM CDT Pulse 102 06/28/2023 3:02 PM CDT Temperature 36.9 C (98.4 F) 06/28/2023 3:02 PM CDT Respiratory Rate 16 08/12/2022 1:45 PM CDT Oxygen Saturation 95% 08/12/2022 1:45 PM CDT Inhaled Oxygen Concentration - - Weight 104 kg (229 lb 8 oz) 06/28/2023 3:02 PM C DT Height 193 cm (6' 3.98) 02/02/2023 3:00 PM GLOBAL CEO Body Mass Index 27.95 02/02/2023 3:00 PM GLOBAL CEO Plan of Treatment Not on file Medical Devices Implanted Type Area Bundle Tier And Labeler Device Identifier Shelf Expiration Date Model / Serial / Lot Small Equipment Operator Linq - [id number] - [id number] Implanted:Qty : 1 on 07/06/2019 by Charles Bermudez M.D. at [facility] Implantable Loop Recorder Chest [employer] 11/02/2019 [id number] / [id number] / Description:LINQ Procedures Procedure Name Priority Date/Time Associated Diagnosis Comments BASIC METABOLIC PANEL, S/P Routine 04/26/2023 3:40 PM GLOBAL CEO Hypertension And Chronic Kidney Disease Stage 2 HEMOGLOBIN A1C, B Routine 04/26/2023 3:40 PM GLOBAL CEO Diabetes Mellitus Type 2 With Diabetic Neuropathy (HCC) ALBUMIN, RANDOM, U Routine 04/26/2023 3:38 PM GLOBAL CEO Diabetes Mellitus Type 2 With Diabetic Neuropathy (HCC) BASIC METABOLIC PANEL, S/P Routine 12/17/2022 12:52 PM CDT Hypertension And Chronic Kidney Disease Stage 2 HEMOGLOBIN A1C, B Routine 12/17/2022 12:52 PM CDT Diabetes Mellitus Type 2 With Diabetic Neuropathy Hyperglycemic (HCC) LIPID PANEL, S Routine 12/17/2022 12:52 PM CDT Hyperlipidemia LOOP RECORDER REMOTE FOLLOW UP Routine 11/26/2022 8:58 AM CDT Syncope ECG Routine 10/19/2022 1:44 PM CDT Atrial Fibrillation Paroxysmal (HCC) LOOP RECORDER REMOTE FOLLOW UP Routine 10/18/2022 11:46 AM CDT Syncope (TTE) 2D ECHO DOPPLER COLOR Routine 09/15/2022 2:37 PM CDT Atrial Fibrillation Other Persistent (HCC) MR LUMBAR SPINE WITHOUT IV CONTRAST RAD - Routine (most inpatients and all outpatients) 07/21/2022 4:32 PM CDT Radiculopathy Lumbar MR CERVICAL SPINE WITHOUT IV CONTRAST RAD - Routine (most inpatients and all outpatients) 07/21/2022 4:32 PM CDT Pain Shoulder Right Radiculopathy Cervical LOOP RECORDER INTERROGATION Routine 07/06/2022 12:45 PM CDT Syncope ECG Routine 07/06/2022 12:14 PM CDT Atrial Fibrillation Other Persistent (HCC) HEMOGLOBIN A1C, B Routine 06/21/2022 1:10 PM CDT Diabetes Mellitus Type 2 With Diabetic Neuropathy Hyperglycemic (HCC) GLUCOSE POCT, B Routine 05/26/2022 10:36 AM CDT GASTROENTEROLOGY IMAGE EXAM Routine 05/26/2022 10:25 AM CDT COLONOSCOPY 05/26/2022 10:22 AM CDT SURGICAL PATHOLOGY Routine 05/26/2022 9:49 AM CDT COLONOSCOPY 05/26/2022 9:25 AM CDT Screening Cancer Colon Case Notes 05/17 Eliquis- stopping 48 hours per CVD communication LP cvd communication loop recorder sent 05/11 - hgb A1c 10. Insulin Golytely GLUCOSE POCT, B Routine 05/26/2022 8:24 AM CDT DX SHOULDER RIGHT 2+ VIEWS RAD - Routine (most inpatients and all outpatients) 03/15/2022 5:07 PM GLOBAL CEO Pain Shoulder Right BASIC METABOLIC PANEL, S/P Routine 03/12/2022 1:33 PM GLOBAL CEO Diabetes Mellitus Type 2 With Diabetic Neuropathy Hyperglycemic (HCC) Hypertension And Chronic Kidney Disease Stage 2 HEMOGLOBIN A1C, B Routine 03/12/2022 1:33 PM GLOBAL CEO Diabetes Mellitus Type 2 With Diabetic Neuropathy Hyperglycemic (HCC) HEMOGLOBIN A1C, B Routine 12/09/2021 2:02 PM CDT Diabetes Mellitus Type 2 With Diabetic Neuropathy Hyperglycemic (HCC) CT HEAD WITHOUT IV CONTRAST RAD - Semiurgent (Fast; most ED patients; some inpatients) 11/10/2021 12:14 PM CDT DX SHOULDER RIGHT 2+ VIEWS RAD - Semiurgent (Fast; most ED patients; some inpatients) 11/10/2021 10:20 AM CDT DX WRIST RIGHT 3+ VIEWS RAD - Semiurgent (Fast; most ED patients; some inpatients) 11/10/2021 10:15 AM CDT DX RADIUS ULNA RIGHT 2 VIEWS RAD - Semiurgent (Fast; most ED patients; some inpatients) 11/10/2021 10:08 AM CDT ALBUMIN, RANDOM, U Routine 08/28/2021 3:26 PM CDT Diabetes Mellitus Type 2 With Diabetic Neuropathy Hyperglycemic (HCC) BASIC METABOLIC PANEL, S/P Routine 08/27/2021 1:23 PM CDT Diabetes Mellitus Type 2 With Diabetic Neuropathy Hyperglycemic (HCC) HEMOGLOBIN A1C, B Routine 08/27/2021 1:23 PM CDT Diabetes Mellitus Type 2 With Diabetic Neuropathy Hyperglycemic (HCC) LOOP RECORDER REMOTE FOLLOW UP Routine 06/15/2021 1:47 PM CDT Atrial Fibrillation (HCC) DX ABDOMEN 1 VIEW RAD - Semiurgent (Fast; most ED patients; some inpatients) 05/09/2021 1:43 AM [employer] CEO HEMOGLOBIN A1C, B Routine 05/05/2021 1:11 PM [employer] CEO Diabetes Mellitus Type 2 (HCC) INR, POCT, B Routine 04/29/2021 11:25 AM GLOBAL CEO INR, POCT, B Routine 04/21/2021 3:04 PM GLOBAL CEO INR, POCT, B Routine 04/17/2021 1:38 PM GLOBAL CEO INR, POCT, B Routine 04/13/2021 11:30 AM GLOBAL CEO LOOP RECORDER REMOTE FOLLOW UP Routine 03/31/2021 3:39 PM GLOBAL CEO Tachycardia LOOP RECORDER REMOTE FOLLOW UP Routine 03/18/2021 11:20 AM GLOBAL CEO Syncope HEMOGLOBIN A1C, B Routine 02/06/2021 3:00 PM GLOBAL CEO Diabetes Mellitus Type 2 With Diabetic Neuropathy Hyperglycemic (HCC) CAR CARDIAC DEVICE INTERROGATION Routine 12/26/2020 1:14 PM CDT Syncope CAR CARDIAC DEVICE INTERROGATION Routine 12/22/2020 3:30 PM CDT Syncope TROPONIN T, BASELINE, 5TH GEN, P STAT 12/20/2020 4:35 PM CDT MAGNESIUM, S STAT 12/20/2020 4:35 PM CDT PROTHROMBIN TIME (PT), P STAT 12/20/2020 4:35 PM CDT COMPREHENSIVE METABOLIC PANEL, S/P STAT 12/20/2020 4:35 PM CDT CBC WITH DIFFERENTIAL, B STAT 12/20/2020 4:35 PM CDT ECG STAT 12/20/2020 4:25 PM CDT CONTINUOUS PULSE OXIMETRY STAT 12/20/2020 4:21 PM CDT URINALYSIS WITH MICROSCOPIC Routine 12/05/2020 3:08 PM CDT Hematuria URINALYSIS WITH MICROSCOPIC STAT 12/01/2020 7:50 PM CDT BACTERIAL CULTURE, AEROBIC + SUSC, URINE STAT 12/01/2020 7:50 PM CDT BASIC METABOLIC PANEL, S/P Routine 11/04/2020 1:25 PM CDT Diabetes Mellitus Type 2 With Diabetic Neuropathy Hyperglycemic (HCC) HEMOGLOBIN A1C, B Routine 11/04/2020 1:25 PM CDT Diabetes Mellitus Type 2 With Diabetic Neuropathy Hyperglycemic (HCC) LOOP RECORDER REMOTE FOLLOW UP Routine 10/23/2020 4:32 PM CDT Syncope LOOP RECORDER REMOTE FOLLOW UP Routine 09/26/2020 3:03 PM CDT Syncope LOOP RECORDER REMOTE FOLLOW UP Routine 08/05/2020 3:47 PM CDT Syncope ALBUMIN, RANDOM, U Routine 08/01/2020 1:23 PM CDT Diabetes Mellitus Type 2 With Diabetic Neuropathy Hyperglycemic (HCC) ONEOME RIGHTMED Routine 08/01/2020 1:07 PM CDT Depression Major One Episode Moderate (HCC) HEMOGLOBIN A1C, B Routine 08/01/2020 1:06 PM CDT Diabetes Mellitus Type 2 With Diabetic Neuropathy Hyperglycemic (HCC) COLONOSCOPY 07/15/2020 2:05 PM CDT GASTROENTEROLOGY IMAGE EXAM Routine 07/15/2020 2:05 PM CDT SURGICAL PATHOLOGY Routine 07/15/2020 1:56 PM CDT COLONOSCOPY 07/15/2020 1:35 PM CDT Positive Cologuard GI AND GENERAL SURGERY IMAGE EXAM Routine 07/15/2020 1:30 PM CDT GLUCOSE POCT, B Routine 07/15/2020 1:18 PM CDT COLOGUARD Routine 05/08/2020 2:30 AM GLOBAL CEO LOOP RECORDER REMOTE FOLLOW UP Routine 05/06/2020 7:37 AM GLOBAL CEO Syncope BASIC METABOLIC PANEL, S/P Routine 05/02/2020 4:41 PM GLOBAL CEO Diabetes Mellitus Type 2 With Diabetic Neuropathy Hyperglycemic (HCC) Hypertension Essential Primary HEMOGLOBIN A1C, B Routine 05/02/2020 4:41 PM GLOBAL CEO Diabetes Mellitus Type 2 With Diabetic Neuropathy Hyperglycemic (HCC) CAR CARDIAC DEVICE INTERROGATION Routine 02/14/2020 7:32 AM GLOBAL CEO Atrial Fibrillation (HCC) (TTE) 2D LIMITED ONLY AND CONTRAST Routine 02/13/2020 10:48 AM GLOBAL CEO Atrial Fibrillation Paroxysmal (HCC) CAR CARDIAC DEVICE INTERROGATION Routine 02/11/2020 1:31 PM GLOBAL CEO Syncope HEMOGLOBIN A1C, B Routine 01/21/2020 2:16 PM G[employer] CEO Diabetes Mellitus Type 2 With Diabetic Neuropathy Hyperglycemic (HCC) CAR CARDIAC DEVICE INTERROGATION Routine 11/22/2019 3:13 PM CDT Syncope LIPID PANEL, S Routine 10/18/2019 1:32 PM CDT Diabetes Mellitus Type 2 With Diabetic Neuropathy Hyperglycemic (HCC) BASIC METABOLIC PANEL, S/P Routine 10/18/2019 1:32 PM CDT Hypertension Essential Primary HEMOGLOBIN A1C, B Routine 10/18/2019 1:32 PM CDT Diabetes Mellitus Type 2 With Diabetic Neuropathy Hyperglycemic (HCC) NM CARDIAC PERFUSION REST AND STRESS SPECT RAD - Routine (most inpatients and all outpatients) 10/09/2019 1:21 PM CDT Atrial Fibrillation Paroxysmal (HCC) Hyperlipidemia Hypertension Essential Primary LOOP RECORDER INTERROGATION Routine 08/30/2019 2:14 PM CDT Syncope BASIC METABOLIC PANEL, S/P Routine 08/23/2019 1:36 PM CDT High Risk Medication LOOP RECORDER REMOTE FOLLOW UP Routine 08/13/2019 4:29 PM CDT Syncope LOOP RECORDER REMOTE FOLLOW UP Routine 07/19/2019 4:34 PM CDT Syncope ALBUMIN, RANDOM, U Routine 07/18/2019 3:55 PM CDT Diabetes Mellitus Type 2 With Diabetic Neuropathy Hyperglycemic (HCC) HEMOGLOBIN A1C, B Routine 07/18/2019 3:55 PM CDT Diabetes Mellitus Type 2 With Diabetic Neuropathy Hyperglycemic (HCC) INR, POCT, B Routine 07/18/2019 3:13 PM CDT GLUCOSE POCT, B Routine 07/06/2019 12:55 PM CDT HEART RHYTHM PROCEDURE Routine 07/06/2019 12:22 PM CDT Syncope BASIC METABOLIC PANEL, S/P Routine 07/06/2019 6:43 AM CDT CBC WITH DIFFERENTIAL, B Routine 07/06/2019 6:43 AM CDT PROTHROMBIN TIME (PT), P Routine 07/06/2019 6:43 AM CDT GLUCOSE POCT, B Routine 07/05/2019 8:43 PM CDT GLUCOSE POCT, B Routine 07/05/2019 3:21 PM CDT GLUCOSE POCT, B Routine 07/05/2019 11:27 AM CDT GLUCOSE POCT, B Routine 07/05/2019 6:23 AM CDT PHOSPHORUS (INORGANIC), S Routine 07/05/2019 6:23 AM CDT MAGNESIUM, S Routine 07/05/2019 6:23 AM CDT BASIC METABOLIC PANEL, S/P Routine 07/05/2019 6:23 AM CDT CBC WITH DIFFERENTIAL, B Routine 07/05/2019 6:23 AM CDT PROTHROMBIN TIME (PT), P Routine 07/05/2019 6:23 AM CDT GLUCOSE POCT, B Routine 07/04/2019 9:17 PM CDT GLUCOSE POCT, B Routine 07/04/2019 4:26 PM CDT ECG STAT 07/04/2019 12:55 PM CDT GLUCOSE POCT, B Routine 07/04/2019 11:16 AM CDT (TTE) 2D ECHO DOPPLER COLOR AND CONTRAST Routine 07/04/2019 10:54 AM CDT PROTHROMBIN TIME (PT), P Routine 07/04/2019 9:30 AM CDT GLUCOSE POCT, B Routine 07/04/2019 7:35 AM CDT TROPONIN T, 5TH GEN, P Timed 07/04/2019 2:40 AM CDT GLUCOSE POCT, B Routine 07/04/2019 2:16 AM CDT TROPONIN T, 2H/6H, 5TH GEN, P Timed 07/03/2019 9:51 PM CDT DX CHEST AP OR PA AND LATERAL 2 VIEWS RAD - Semiurgent (Fast; most ED patients; some inpatients) 07/03/2019 8:[address] HEAD WITHOUT IV CONTRAST RAD - Semiurgent (Fast; most ED patients; some inpatients) 07/03/2019 8:31 PM CDT ECG STAT 07/03/2019 8:18 PM CDT MAGNESIUM, S STAT 07/03/2019 7:57 PM CDT THYROID-STIMULATING HORMONE-SENSITIVE (S-TSH) STAT 07/03/2019 7:57 PM CDT PROTHROMBIN TIME (PT), P STAT 07/03/2019 7:57 PM CDT TROPONIN T, BASELINE, 5TH GEN, P STAT 07/03/2019 7:57 PM CDT BASIC METABOLIC PANEL, S/P STAT 07/03/2019 7:57 PM CDT CBC WITH DIFFERENTIAL, B STAT 07/03/2019 7:57 PM CDT ECG STAT 07/03/2019 7:36 PM CDT GLUCOSE POCT, B Routine 07/03/2019 7:31 PM CDT Results * (ABNORMAL) Hemoglobin A1c (04/26/2023 3:40 PM GLOBAL CEO) Only the most recent of14 resultswithin the time period is included. Hemoglobin A1c, B 15.1(H) 4.2 - 5.6 % 04/26/2023 4:31 PM [employer] CEO MKTO Comment: Hemoglobin A1c values greater than or equal to 6.5 percent are diagnostic for diabetes mellitus. Diagnosis should be confirmed by repeat testing. In diabetic patients, HbA1c goals should be discussed with healthcare provider. Blood (Blood, Venous) 04/26/2023 3:40 PM GLOBAL CEO 04/26/2023 3:45 PM [employer]LO[employer] CEO us Tish Velasquez M.D. LAB BLOOD ADD-ON Final Res ult [facility] [address] [place] [address], [facility] MK[facility] [place] [address] * (ABNORMAL) Basic Metabolic Panel (04/26/2023 3:40 PM GLOBAL CEO) Only the most recent of11 resultswithin the time period is included. Potassium, P 4.1 3.6 - 5.2 mmol/L 04/26/2023 4:04 PM GLO[employer] CEO MKTO Sodium, P 135 135 - 145 mmol/L 04/26/2023 4:04 PM GLOBAL CEO [facility] Chloride, P 95(L) 98 - 107 mmol/L 04/26/2023 4:04 PM GLOBAL CEO [facility] Bicarbonate, P 24 22 - 29 mmol/L 04/26/2023 4:04 PM GLOBAL CEO [facility] Anion Gap, P 16(H) 7 - 15 04/26/2023 4:04 PM GLOBAL CEO [facility] BUN (Blood Urea Nitrogen), P 15 8 - 24 mg/dL 04/26/2023 4:04 PM GLOBAL CEO [facility] Creatinine 0.94 0.74 - 1.35 mg/dL 04/26/2023 4:04 PM GLOBAL CEO [facility] Estimated GFR (eGFR) >90 >=60 mL/min/BSA 04/26/2023 4:04 PM GLOBAL CEO [facility] Comment: Estimated GFR calculated using the 2020 CKD_EPI creatinine equation. Calcium, Total, P 9.5 8.6 - 10.0 mg/dL 04/26/2023 4:04 PM GLOBAL CEO MKTO Glucose, P 419(CH) 70 - 140 mg/dL 04/26/2023 4:14 PM GLOBAL CEO [facility] Blood (Blood, Venous) 04/26/2023 3:40 PM GLOBAL CEO 04/26/2023 3:45 PM GLOBAL CEO us Tish Velasquez M.D. LAB BLOOD ADD-ON Final Res ult Performing Organization Address [facility]/ZIP Co de Phone Number [facility] [address] [place] [address] * (ABNORMAL) Albumin, Random, Urine (04/26/2023 3:38 PM GLOBAL CEO) Only the most recent of4 resultswithin the time period is included. Albumin, Random, U 35.0 mg/L 2023 4:12 PM GLOBAL CEO MKTO Comment: ----ADDITIONAL INFORMATION---- This test has been modified from the quality liaison's instructions. Its performance characteristics were determined by [facility] in a manner consistent with CLIA requirements. This test has not been cleared or approved by the U.S. Food and Drug Administration. Creatinine 49 mg/dL 04/26/2023 4:12 PM GLOBAL CEO MKTO Albumin/Creatinine Ratio 71(H) <17 mg/g 04/26/2023 4:12 PM GLOBAL CEO MKTO Urine (Urine, Midstream) 04/26/2023 3:38 PM GLOBAL CEO 04/26/2023 3:50 PM GLOBAL CEO us Tish Velasquez M.D. LAB URINE ORDERABLES Final Result Performing Organization Address [facility]/ZIP Co de Phone Number [facility] [address] [place] [address], [place] [address] * (ABNORMAL) Lipid Panel (12/17/2022 12:52 PM CDT) Only the most recent of2 resultswithin the time period is included. Triglycerides 302(H) mg/dL 12/17/2022 1:22 PM CDT MKTO Comment: ----REFERENCE VALUE---- Normal: <150 mg/dL Borderline High: 150-199 mg/dL High: 200-499 mg/dL Very High: > or =500 mg/dL Cholesterol, Total 169 mg/dL 2022 1:22 PM CDT MKTO Comment: ----REFERENCE VALUE---- Desirable: < 200 mg/dL Borderline High: 200 - 239 mg/dL High: > or = 240 mg/dL Cholesterol, LDL, Calculated 83 mg/dL 12/17/2022 1:22 PM CDT MKTO Comment: ----REFERENCE VALUE---- Desirable: <100 mg/dL Above Desirable: 100-129 mg/dL Borderline High: 130-159 mg/dL High: 160-189 mg/dL Very High: >=190 mg/dL ----ADDITIONAL INFORMATION---- LDL cholesterol calculated using the Hadley/NIH equation. Cholesterol, HDL 36(L) >=40 mg/dL 12/18/19 1:22 PM CDT TO Cholesterol, Non-HDL, Calculated 133 mg/dL 12/17/2022 1:22 PM CDT MKTO Comment: ----REFERENCE VALUE---- Desirable: <130 mg/dL Above Desirable: 130-159 mg/dL Borderline High: 160-189 mg/dL High: 190-219 mg/dL Very High: > or =220 mg/dL Fasting (8 HR or more) No 12/17/2022 12:55 PM CDT TO Blood (Blood, Venous) 12/17/2022 12:52 PM CDT 12/17/2022 12:55 PM CDT us Tish Velasquez M.D. LAB BLOOD ADD-ON Final Res ult [facility] [address] [place] [address], [facility] [address] [address] * LOOP RECORDER REMOTE FOLLOW UP (11/26/2022 8:58 AM CDT) Only the most recent of18 resultswithin the time period is included. Date Time Interrogation Session [id number] [facility] Implantable Pulse Generator Bundle Tier And Labeler [employer] [facility] Implantable Pulse Generator Model LNQ11 Reveal LINQ [facility] Implantable Pulse Generator Serial Number [id number] [facility] Type Interrogation Session Remote [facility] Clinic Name [facility] Implantable Pulse Generator Type Implantable Diagnostic Monitor [facility] Implantable Pulse Generator Implant Date [id number] [facility] Zone Setting Type Category VF [facility] Zone Setting Type Category VT [facility] Zone Setting Type Category VT [facility] Zone Setting Detection Interval 340 ms [facility] Zone Setting Type Category VT [facility] Zone Setting Type Category ATRIAL_FIBRILLATI ON [facility] Zone Setting Type Category AT/AF [facility] Zone Setting Type Category ASYSTOLE [facility] Zone Setting Detection Interval 4,500 ms [facility] Zone Setting Type Category BRADYCARDIA [facility] Zone Setting Detection Interval 2,000 ms [facility] Battery Date Time of Measurements [id number] [facility] Battery Status Recommended Replacement Time [facility] Atrial Tachy Statistic Date Time Start [facility] Atrial Tachy Statistic Date Time End [id number] [facility] Atrial Tachy Statistic AT/AF [place] Percent 47.8 % [facility] Episode Statistic Recent Count 4 [facility] Episode Statistic Type Category AT/AF [facility] Episode Statistic Recent Count 0 [facility] Episode Statistic Type Category ASYSTOLE [facility] Episode Statistic Recent Count 0 [facility] Episode Statistic Type Category AT F[facility] Episode Statistic Recent Count 0 [facility] Episode Statistic Type Category DINO [facility] Episode Statistic Recent Count 0 [facility] Episode Statistic Type Category Patient Activated [facility] Episode Statistic Recent Count 3 [facility] Episode Statistic Type Category VT [facility] Episode Statistic Recent Date Time Start F[facility] Episode Statistic Recent Date Time End [id number] [facility] Episode Statistic Recent Date Time Start [facility] Episode Statistic Recent Date Time End [facility] Episode Statistic Recent Date Time Start [facility] Episode Statistic Recent Date Time End [id number] [facility] Episode Statistic Recent Date Time Start [id number] [facility] Episode Statistic Recent Date Time End [id number] [facility] Episode Statistic Recent Date Time Start [id number] [facility] Episode Statistic Recent Date Time End [id number] [facility] Episode Statistic Recent Date Time Start [id number] [facility] Episode Statistic Recent Date Time End [id number] [facility] Episode Statistic Total Count 73 [facility] Episode Statistic Type Category AT/AF F[facility] Episode Statistic Total Count 4 [facility] Episode Statistic Type Category ASYSTOLE [facility] Episode Statistic Total Count 0 [facility] Episode Statistic Type Category AT F[facility] Episode Statistic Total Count 2 [facility] Episode Statistic Type Category DINO [facility] Episode Statistic Total Count 0 [facility] Episode Statistic Type Category Patient Activated [facility] Episode Statistic Total Count 35 [facility] Episode Statistic Type Category VT [facility] Episode Statistic Total Date Time Start [id number] [facility] Episode Statistic Total Date Time End [id number] [facility] Episode Statistic Total Date Time Start [id number] [facility] Episode Statistic Total Date Time End [id number] [facility] Episode Statistic Total Date Time Start [id number] [facility] Episode Statistic Total Date Time End [id number] [facility] Episode Statistic Total Date Time Start 76754620541219 [facility] Episode Statistic Total Date Time End [id number] [facility] Episode Statistic Total Date Time Start [id number] [facility] Episode Statistic Total Date Time End 58201675900983 [facility] Episode Statistic Total Date Time Start 56392147593949 [facility] Episode Statistic Total Date Time End [id number] [facility] Episode Identifier 112 [facility] Episode Date Time [id number] [facility] Episode Duration 43 s [facility] Episode Identifier 110 [facility] Episode Date Time [id number] [facility] Episode Duration 57 s [facility] Episode Identifier 109 [facility] Episode Date Time [id number] [facility] Episode Duration 24 s [facility] Episode Identifier 114 [facility] Episode Type Category AT/AF [facility] Episode Vendor Type Category AT AF [facility] Episode Date Time [id number] [facility] Episode Duration 145,320 s [facility] Anatomical Region Laterality Modality Other 11/25/2022 4:54 PM CDT Narrative 11/26/2022 12:49 PM CDT PURPOSE OF TRANSMISSION: Disconnection of [employer] monitor noted and obtained collection 11/25/22 at 4:54 pm which demonstrates LINQ device reached LABORATORY EQUIPMENT INSTALLER on 11/09/22. PRESENTING ECG: VS 88-138 bpm (Afib) BATTERY STATUS: LABORATORY EQUIPMENT INSTALLER was reached on 11/09/22. EPISODES: Since 10/18/22, 3 Tachy episode collected lasting 24-43 sec with median ventricular rates 182-194 bpm. All appear to be Afib with RVR. Patient has history of Afib and is on Eliquis. HISTOGRAM: No histogram is available. Heart rate trends demonstrate ventricular rates majority of the time around 80-100 bpm with occasional rates <60 bpm and >120 bpm. CONCLUSION: Device has reached LABORATORY EQUIPMENT INSTALLER and will no longer be followed. Will ask patient if he would like to have LINQ device removed or leave in at this time. Will discontinue in [facility]. Will send a message to Katharine Cheema DNP regarding this information. DEVICE RN: Barb Eli I agree device interrogation was medically indicated to provide appropriate care. Continue routine device interrogation as indicated. Fernando Leiva M.D. CV IMPLANTABLE CARDIAC DEVIC E Final Result * ECG 12 Lead (10/19/2022 1:44 PM CDT) Only the most recent of6 resultswithin the time period is included. Ventricular Rate ECG/Min 89 BPM MUSE OH Interval 176 ms MUSE QRSD Interval 82 ms MUSE QT Interval 378 ms MUSE QTC Interval 459 ms MUSE P [place] 55 degrees MUSE R [place] -48 degrees MUSE T Wave [place] 45 degrees MUSE 10/19/2022 1:44 PM CDT 10/19/2022 1:57 PM CDT Impressions MUSE - 10/19/2022 1:57 PM CDT Sinus rhythm Premature atrial complexes singly and in a 3 beat series Left anterior fascicular block Nonspecific T wave abnormality When compared with ECG of 06-JUL-2022 12:14, Sinus rhythm has replaced Atrial fibrillation Reviewed by ANISHA Parra Narrative Procedure Note Benny Whyte Jr., M.D. - 10/19/2022 IMPRESSION: Sinus rhythm Premature atrial complexes singly and in a 3 beat series Left anterior fascicular block Nonspecific T wave abnormality When compared with ECG of 06-JUL-2022 12:14, Sinus rhythm has replaced Atrial fibrillation Reviewed by ANISHA Parra us Katharine Cheema APRN, C.N.P., D.N.P. ECG ORD ERABLES Final Result MUSE NA * (TTE) 2D ECHO DOPPLER COLOR (09/15/2022 2:37 PM CDT) Ejection Fraction 62 MC CV EIMS Mid-Ascending Aorta 38 MC CV EIMS LV Mass Index 117 MC CV EIMS LV End-Diastolic Diameter 47 MC CV EIMS LV End-Systolic Diameter 31 MC CV EIMS LV End-Diastolic Volume 82 MC CV EIMS LV End-Systolic Volume 31 MC CV EIMS MV E Velocity 0.9 MC CV EIMS MV e' Velocity Medial 0.08 MC CV EIMS MV e' Velocity Lateral 0.1 MC CV EIMS MV E/e' Medial 11.3 MC CV EIMS MV E/e' Lateral 9 MC CV EIMS Left ventricular stroke volume index 32 MC CV EIMS Cardiac Output 6.24 MC CV EIMS Cardiac Index 2.62 MC CV EIMS LV Interventricular Septal Wall Thickness 15 MC CV EIMS LV Posterior Wall Thickness 14 MC CV EIMS LV Relative Wall Thickness 60 MC CV EIMS RV 4-Chamber Basal Diameter 36 MC CV EIMS RV 4-Chamber Mid Diameter 27 MC CV EIMS RV 4-Chamber Length 79 MC CV EIMS Tricuspid Annular S 0.07 MC CV EIMS Estimated RA Pressure (Echo RAP) 5 MC CV EIMS AV mean gradient 3 MC CV EIMS Aortic valve area 3.46 MC CV EIMS Aortic Valve Dimensionless Index 0.7 MC CV EIMS LA Volume Index 36 MC CV EIMS Aortic Valve Systolic Peak Velocity 1.2 MC CV EIMS Anatomical Region Laterality Modality Echocardiography 09/15/2022 1:25 PM CDT Impressions 09/15/2022 3:08 PM CDT LEFT VENTRICLE:Normal left ventricular chamber size. Normal left ventricular wall thickness. Calculated 2-D biplane volumetric left ventricular ejection fraction of 62%. No regional wall motion abnormalities. Normal left ventricular filling pressure. RIGHT VENTRICLE:Normal right ventricular chamber size. Normal right ventricular systolic function. Unable to detect peak tricuspid regurgitation velocity for pulmonary artery systolic pressure calculation. ATRIA:Mildly enlarged left atrial size. Left atrial volume index 36 ml/m2. Mildly enlarged right atrial size. CARDIAC VALVES:Trileaflet aortic valve. Mildly thickened aortic valve. No aortic valve regurgitation. Mildly thickened mitral valve. Trivial mitral valve regurgitation. Pulmonary valve not well visualized. Normal pulmonary valve systolic velocities. Trivial pulmonary valve regurgitation. Normal tricuspid valve. Trivial tricuspid valve regurgitation. OTHER ECHO FINDINGS:Normal inferior vena cava size with normal inspiratory collapse (>50%). Normal mid ascending aorta diameter of 38 mm. Upper limit of normal of the mid ascending aorta, for age, sex and BSA is 41 mm. Abdominal aorta incompletely visualized. Normal abdominal aorta Doppler flow pattern. Mildly lipomatous atrial septum. No atrial level shunt by color flow imaging. No intracardiac mass or thrombus, but the left atrial appendage cannot be visualized adequately with transthoracic echo to exclude thrombus in this location. No pericardial effusion. For the complete report, see the Order-Level Documents. Narrative 09/15/2022 3:08 PM CDT For the complete report, see the Order-Level Documents. Hemodynamics Heart Rate: 78 BPM Blood Pressure: 130 / 89 mmHg ECG: Atrial fibrillation Final Impressions 1. Normal left ventricular chamber size, no regional wall motion abnormalities, calculated 2-D biplane volumetric ejection fraction of 62%. 2. Normal right ventricular chamber size, normal systolic function. 3. Normal left ventricular filling pressure. 4. Mildly enlarged left atrial size. 5. No significant valvular heart disease. 6. Normal inferior vena cava size with normal inspiratory collapse (>50%). Procedure Note Ashley Gibbs M.D. - 09/15/2022 For the complete report, see the Order-Level Documents. Hemodynamics Heart Rate: 78 BPM Blood Pressure: 130 / 89 mmHg ECG: Atrial fibrillation Final Impressions 1. Normal left ventricular chamber size, no regional wall motionabnormalities, calculated 2-D biplane volumetric ejection fraction of62%. 2. Normal right ventricular chamber size, normal systolic function. 3. Normal left ventricular filling pressure. 4. Mildly enlarged left atrial size. 5. No significant valvular heart disease. 6. Normal inferior vena cava size with normal inspiratory collapse(>50%). Findings LEFT VENTRICLE:Normal left ventricular chamber size. Normal leftventricular wall thickness. Calculated 2-D biplane volumetric leftventricular ejection fraction of 62%. No regional wall motionabnormalities. Normal left ventricular filling pressure. RIGHT VENTRICLE:Normal right ventricular chamber size. Normal rightventricular systolic function. Unable to detect peak tricuspidregurgitation velocity for pulmonary artery systolic pressurecalculation. ATRIA:Mildly enlarged left atrial size. Left atrial volume index 36 ml/m2.Mildly enlarged right atrial size. CARDIAC VALVES:Trileaflet aortic valve. Mildly thickened aortic valve. Noaortic valve regurgitation. Mildly thickened mitral valve. Trivial mitralvalve regurgitation. Pulmonary valve not well visualized. Normal pulmonaryvalve systolic velocities. Trivial pulmonary valve regurgitation. Normaltricuspid valve. Trivial tricuspid valve regurgitation. OTHER ECHO FINDINGS:Normal inferior vena cava size with normal inspiratorycollapse (>50%). Normal mid ascending aorta diameter of 38 mm. Upper limitof normal of the mid ascending aorta, for age, sex and BSA is 41 mm.Abdominal aorta incompletely visualized. Normal abdominal aorta Dopplerflow pattern. Mildly lipomatous atrial septum. No atrial level shunt bycolor flow imaging. No intracardiac mass or thrombus, but the left atrialappendage cannot be visualized adequately with transthoracic echo toexclude thrombus in this location. No pericardial effusion. For the complete report, see the Order-Level Documents. us Katharine Cheema APRN, C.N.P., D.N.P. CV ECHO PROCEDURES Final Result * MR Lumbar Spine without IV Contrast (07/21/2022 4:32 PM CDT) Anatomical Region Laterality Modality Lumbar Spine, Neuroradiology RST LOS, Neuroradiology ARZ LOS, Neuroradiology FLA LOS N/A Magnetic Resonance 07/21/2022 4:40 PM CDT Impressions 07/21/2022 4:50 PM CDT 1. Annular fissures at the L4-5 and L5-S1 levels, including in the left L4-5 subarticular region. 2. Mild multilevel lumbar spine discogenic degenerative changes. No significant lumbar spinal canal stenosis or severe neural foraminal narrowing. 3. Mild to moderate multilevel lumbar spine facet degenerative changes. Narrative 07/21/2022 4:50 PM CDT EXAM: MR LUMBAR SPINE WITHOUT IV CONTRAST COMPARISON: None FINDINGS: T12-L1: Disc desiccation. Mild broad-based disc bulge, without significant spinal canal stenosis or neural foraminal narrowing. Mild facet degenerative changes. L1-2: No disc herniation, spinal canal stenosis or neural foraminal narrowing. Mild facet degenerative changes. L2-3: Mild broad-based disc bulge, without significant spinal canal stenosis or neural foraminal narrowing. Moderate facet degenerative changes. L3-4: Disc desiccation and mild disc height loss. Mild broad-based disc bulge, without significant spinal canal stenosis or neural foraminal narrowing. Mild facet degenerative changes. L4-5: Disc desiccation and mild disc height loss. Small posterior annular fissures in the central and left subarticular regions. Broad-based disc bulge, without significant spinal canal stenosis. Mild bilateral neural foraminal narrowing. Moderate left and mild right facet degenerative changes. L5-S1: Disc desiccation. Small posterior annular fissure. Broad-based disc bulge, without significant spinal canal stenosis or neural foraminal narrowing. Mild facet degenerative changes. Alignment: Normal Bone Marrow: Normal Conus: Normal termination Extra-spinal Findings: No significant incidental findings For the purpose of this report, 5 lumbar type vertebral bodies are assumed. Close radiographic correlation recommended prior to any spinal intervention or surgery. Procedure Note Maged Luong M.D. - 07/21/2022 EXAM: MR LUMBAR SPINE WITHOUT IV CONTRAST COMPARISON: None FINDINGS: T12-L1: Disc desiccation. Mild broad-based disc bulge, without significantspinal canal stenosis or neural foraminal narrowing. Mild facet degenerative changes. L1-2: No disc herniation, spinal canal stenosis or neural foraminalnarrowing. Mild facet degenerative changes. L2-3: Mild broad-based disc bulge, without significant spinal canalstenosis or neural foraminal narrowing. Moderate facet degenerative changes. L3-4: Disc desiccation and mild disc height loss. Mild broad-based discbulge, without significant spinal canal stenosis or neural foraminal narrowing. Mild facetdegenerative changes. L4-5: Disc desiccation and mild disc height loss. Small posterior annularfissures in the central and left subarticular regions. Broad-based disc bulge, without significantspinal canal stenosis. Mild bilateral neural foraminal narrowing. Moderate left and mild rightfacet degenerative changes. L5-S1: Disc desiccation. Small posterior annular fissure. Broad-baseddisc bulge, without significant spinal canal stenosis or neural foraminal narrowing. Mildfacet degenerative changes. Alignment: Normal Bone Marrow: Normal Conus: Normal termination Extra-spinal Findings: No significant incidental findings For the purpose of this report, 5 lumbar type vertebral bodies areassumed. Close radiographic correlation recommended prior to any spinal intervention or surgery. IMPRESSION: 1. Annular fissures at the L4-5 and L5-S1 levels, including in the leftL4-5 subarticular region. 2. Mild multilevel lumbar spine discogenic degenerative changes. Nosignificant lumbar spinal canal stenosis or severe neural foraminal narrowing. 3. Mild to moderate multilevel lumbar spine facet degenerative changes. us Abdirashid Parham M.D., M.B.A. IMG MRI PROCEDURES Fi nal Result * MR Cervical Spine without IV Contrast (07/21/2022 4:32 PM CDT) Anatomical Region Laterality Modality Spine, Cervical Spine, Neuro radiology RST LOS, [facility]uroradiology [facility], [facility] N/A Magneti c Resonance 07/21/2022 4:51 PM CDT Impressions 07/21/2022 5:04 PM CDT 1. Mild spinal canal narrowing at the C4-C7 levels. No severe spinal canal or neural foraminal stenosis. 2. Moderate C5-C6 and mild C4-5 degenerative disc disease. Mild right C5-6 neural foraminal narrowing. 3. Small central disc protrusion at C6-7 level. 4. Mild to moderate cervical spine facet degenerative changes, more advanced on the left than right. Narrative 07/21/2022 5:04 PM CDT EXAM: MR CERVICAL SPINE WITHOUT IV CONTRAST COMPARISON: None FINDINGS: Motion artifact degrades image quality and limits evaluation. Skull base-C2: No spinal canal stenosis or neural foraminal narrowing. C2-3: No disc herniation, spinal canal stenosis or neural foraminal narrowing. Moderate facet degenerative changes, left greater than right. C3-4: No disc herniation, significant spinal canal stenosis, or neural foraminal narrowing. Mild left facet degenerative change. C4-5: Mild degenerative disc disease. Posterior annular bulge, with mild spinal canal narrowing. No significant neural foraminal stenosis. Moderate left facet degenerative changes. C5-6: Moderate degenerative disc disease. Posterior annular bulge, with mild spinal canal narrowing. Mild right neural foraminal stenosis. Mild left facet degenerative change. C6-7: Small central disc protrusion. Mild spinal canal narrowing. No significant neural foraminal stenosis. C7-T1: No disc herniation, spinal canal stenosis or neural foraminal narrowing. Alignment: Loss of normal cervical lordosis. Bone Marrow: Normal Extra-spinal Findings: No significant incidental findings Procedure Note Maged Luong M.D. - 07/21/2022 EXAM: MR CERVICAL SPINE WITHOUT IV CONTRAST COMPARISON: None FINDINGS: Motion artifact degrades image quality and limits evaluation. Skull base-C2: No spinal canal stenosis or neural foraminal narrowing. C2-3: No disc herniation, spinal canal stenosis or neural foraminalnarrowing. Moderate facet degenerative changes, left greater than right. C3-4: No disc herniation, significant spinal canal stenosis, or neuralforaminal narrowing. Mild left facet degenerative change. C4-5: Mild degenerative disc disease. Posterior annular bulge, with mildspinal canal narrowing. No significant neural foraminal stenosis. Moderate left facet degenerativechanges. C5-6: Moderate degenerative disc disease. Posterior annular bulge, withmild spinal canal narrowing. Mild right neural foraminal stenosis. Mild left facetdegenerative change. C6-7: Small central disc protrusion. Mild spinal canal narrowing. Nosignificant neural foraminal stenosis. C7-T1: No disc herniation, spinal canal stenosis or neural foraminalnarrowing. Alignment: Loss of normal cervical lordosis. Bone Marrow: Normal Extra-spinal Findings: No significant incidental findings IMPRESSION: 1. Mild spinal canal narrowing at the C4-C7 levels. No severe spinalcanal or neural foraminal stenosis. 2. Moderate C5-C6 and mild C4-5 degenerative disc disease. Mild rightC5-6 neural foraminal narrowing. 3. Small central disc protrusion at C6-7 level. 4. Mild to moderate cervical spine facet degenerative changes, moreadvanced on the left than right. Abdirashid Parham M.D., M.B.A. IMG MRI PROCEDURES Fi nal Result * (ABNORMAL) Glucose, POCT (05/26/2022 10:36 AM CDT) Only the most recent of14 resultswithin the time period is included. Glucose, POCT, B 247(H) 70 - 140 mg/dL 05/26/2022 10:36 AM CDT [facility] Blood 05/26/2022 10:3 6 AM CDT 05/26/2022 11:46 AM CDT Generic Rals LAB POCT ORDERABLES-MANUAL Final Result [facility] [address] [place] [address], [facility] [place] [address] * Colon, Descending colon Colonoscopy-Gastroenterology Image Exam (05/26/2022 10:25 AM CDT) Only the most recent of2 resultswithin the time period is included. 05/26/2022 10:2 2 AM CDT Narrative [facility] - 05/26/2022 10:53 AM CDT This order has been created and auto-finalized to support the import of images acquired without order. The clinical documentation to support these images can be found on the encounter that produced images. us Provider Not In System IMG NON RAD IMAGING PROCE DURES Final Result [facility] NA * COLONOSCOPY (05/26/2022 10:22 AM CDT) Narrative Procedure Note Mousa, Ksai Y, M.B.B.S., M.D. - 05/26/2022 10:22 AM CDT [facility] GI Patient Name: Parish Amato Procedure Date: 05/26/2022 10:22 AM Date of : 1965 Age: 57 Gender: Male Procedure: Colonoscopy Providers: DARCIE Perdomo, Ludmila Rose(Ordering Provider) Referring Provider: Ludmila Rose Pre-op Diagnoses: High risk colon cancer surveillance: Personal history of colonic polyps Post-op Diagnoses: - Preparation of the colon was fair. - Six 2 to 3 mm polyps in the sigmoid colon and in the descendingcolon, removed with a jumbo cold forceps. Resected and retrieved. - 15 5 to 6 mm polyps at the recto-sigmoid colon, removed with a cold snare. Resected and retrieved. Recommendation: - Discharge patient to home. - Resume previous diet. - No aspirin, ibuprofen, naproxen, or other non-steroidal anti-inflammatory drugs for 3 days after polyp removal. - Resume Eliquis (apixaban) at prior dose in 3 days. - Await pathology results. - Repeat colonoscopy in 1 year for surveillance. - Return to referring physician. Findings: The perianal and digital rectal examinations were normal. Six flat polyps were found in the sigmoid colon and descending colon. The polyps were 2 to 3 mm in size. These polyps were removed with a jumbo cold forceps. Resection and retrieval were complete. 15 flat polyps were found in the recto-sigmoid colon. The polyps were5 to 6 mm in size. These polyps were removed with a cold snare.Resection and retrieval were complete. Stool was found in the ascending colon, interfering withvisualization. Lavage of the area was performed using a moderate amount, resultingin incomplete clearance with fair visualization. No additional abnormalities were found on retroflexion. Medicines: Monitored Anesthesia Care Estimated Blood Loss: Estimated blood loss was minimal. Complications: No immediate complications. Procedure Details: The patient was seen, evaluated, and history reviewed. Airway and heart and lung exams were performed and were satisfactory for plannedsedation care. The risks, benefits and alternatives for the procedure and sedation were discussed andinformed consent was obtained. A procedural pause was conducted in the presence of assisting personnelto verify the correct patient identity and procedureto be performed. Throughout the procedure, the patient's blood pressure, pulse, and oxygen saturations were monitored continuously. The Colonoscope was introduced under directvision through the anus and advanced to the cecum, identified by appendiceal orifice and ileocecal valve. The colonoscopy was performed withmoderate difficulty due to poor bowel prep and a redundant colon. Successful completion of the procedure was aided by increasing the dose of sedationmedication, withdrawing and reinserting the scope and lavage. The patient tolerated the procedure well. The quality of the bowel preparation was evaluatedusing the BBPS ([place] Bowel Preparation Scale) with scores of: Right Colon = 1 (portion of mucosaseen, but other areas not well seen due to staining, residual stool and/or opaque liquid), Transverse Colon = 2 (minor amount of residual staining,small fragments of stool and/or opaque liquid, butmucosa seen well) and Left Colon = 2 (minor amount of residual staining, small fragments of stooland/or opaque liquid, but mucosa seen well). The totalBBPS score equals 5. The quality of the bowelpreparation was inadequate. Sedation: An independent trained observer was present and continuouslymonitored the patient. DARCIE Moore 05/26/2022 10:50:00 AM This report has been signed electronically. Number of Addenda: 0 Note Initiated On: 05/26/2022 10:22 AM Ludmila Rose APRN, C.N.P., M.S. GI PROCEDU RE ORDERABLES Final Result * Surgical Pathology (05/26/2022 9:49 AM CDT) Only the most recent of2 resultswithin the time period is included. 05/27/2022 10:36 AM CDT [facility] Report electronically signed by Gab Whyte MD 05/27/2022 10:36 AM CDT [facility] Specimen Received A. Colon biopsy descending and sigmoid polyps x6 B. Colon biopsy rectosigmoid polyps x14 05/27/2022 10:36 AM CDT [facility] Clinical History Colon cancer screening 05/27/2022 10:36 AM CDT [facility] Gross Description A: Submitted as descending and sigmoid polyps are pink biopsies aggregating to 0.7 cm. ESB, one block. B: Submitted as rectosigmoid polyps are multiple pink biopsies and polyps aggregating to 2 cm. ESB, one block. eae/nm 05/27/2022 10:36 AM CDT [facility] Interpretation FINAL DIAGNOSIS A: Colon, descending and sigmoid polyps (6): Hyperplastic polyps. B: Colon, rectosigmoid polyps (14): Hyperplastic polyps. 05/27/2022 10:36 AM CDT [facility] Polyp (Colon) 05/26/2022 9:4 9 AM CDT Polyp (Colon) 05/26/2022 10: 06 AM CDT us Kasi Alvarez M.D. LAB SURG PATH ORDERA BLES Final Result Performing Organization Address City/State/[facility] Co de Phone Number [facility] [address] [place] [address], [facility] MKTO [facility] [place] [address] * DX Shoulder Right 2+ Views (03/15/2022 5:07 PM GLOBAL CEO) Only the most recent of2 resultswithin the time period is included. Anatomical Region Laterality Modality Upper Extremity, Shoulder, M usculoskeletal RST LOS, Musculoskeletal ARZ LOS, Muskuloskeletal FLA LOS Right Digit al Radiography 03/15/2022 5:09 PM GLOBAL CEO Impressions 03/15/2022 5:10 PM GLOBAL CEO Normal RIGHT shoulder Narrative 03/15/2022 5:10 PM GLOBAL CEO EXAM: DX SHOULDER RIGHT 2+ VIEWS COMPARISON: RIGHT shoulder x-ray 11/10/2021 FINDINGS: The bones are intact and show no evidence of fracture or focal destruction. The joint spaces are maintained and no soft tissue abnormality is seen. Procedure Note Cheng Harrington M.D. - 03/15/2022 EXAM: DX SHOULDER RIGHT 2+ VIEWS COMPARISON: RIGHT shoulder x-ray 11/10/2021 FINDINGS: The bones are intact and show no evidence of fracture or focaldestruction. The joint spaces are maintained and no soft tissue abnormality is seen. IMPRESSION: Normal RIGHT shoulder Ludmila Rose APRN, C.N.P., M.S. IMG DIAGNO STIC IMAGING PROCEDURES Final Result * CT Head without IV Contrast (11/10/2021 12:14 PM CDT) Only the most recent of2 resultswithin the time period is included. Anatomical Region Laterality Modality Head, Neuroradiology RST LOS , Neuroradiology ARZ LOS, Neuroradiology FLA LOS N/A Computed Tomography 11/10/2021 12:1 6 PM CDT Impressions 11/10/2021 12:21 PM CDT No acute intracranial pathology. 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 Narrative 11/10/2021 12:21 PM CDT EXAM: CT HEAD WITHOUT IV CONTRAST COMPARISON: 07/03/2019 and prior FINDINGS: There is scattered encephalomalacia of the right cerebral hemisphere noted, stable compared to previous. The ventricles and sulci are within normal limits for patient's age. There is no mass effect or midline shift. There is no subdural, epidural, or subarachnoid hemorrhage. The hair-white differentiation is intact throughout both cerebral hemispheres. The paranasal sinuses and mastoid air cells are clear. The bony calvarium and skull base are intact. Procedure Note Roberto Duke M.D. - 11/10/2021 EXAM: CT HEAD WITHOUT IV CONTRAST COMPARISON: 07/03/2019 and prior FINDINGS: There is scattered encephalomalacia of the right cerebralhemisphere noted, stable compared to previous. The ventricles and sulci are within normal limitsfor patient's age. There is no mass effect or midline shift. There is no subdural, epidural, orsubarachnoid hemorrhage. The hair-white differentiation is intact throughout both cerebral hemispheres.The paranasal sinuses and mastoid air cells are clear. The bony calvarium and skull base areintact. IMPRESSION: No acute intracranial pathology. Old right cerebral encephalomalaciastable. us Orlando Simpson M.D. IMWillow CT PROCEDURES Final Resu lt * DX Wrist Right 3+ Views (11/10/2021 10:15 AM CDT) Anatomical Region Laterality Modality Upper Extremity, Wrist, Musc uloskeletal RST LOS, Musculoskeletal ARZ LOS, Muskuloskeletal FLA LOS Right Digit al Radiography 11/10/2021 10:2 4 AM CDT Impressions 11/10/2021 10:27 AM CDT No acute fracture or malalignment. Narrative 11/10/2021 10:27 AM CDT EXAM: DX RADIUS ULNA RIGHT 2 VIEWS, DX WRIST RIGHT 3+ VIEWS COMPARISON: None FINDINGS: No acute fracture or malalignment. Moderate triscaphe. Mild first CMC osteoarthritis. 4 mm linear nonspecific linear calcification along the medial aspect of the elbow. The soft tissues are otherwise unremarkable. Procedure Note Maged Luong M.D. - 11/10/2021 EXAM: DX RADIUS ULNA RIGHT 2 VIEWS, DX WRIST RIGHT 3+ VIEWS COMPARISON: None FINDINGS: No acute fracture or malalignment. Moderate triscaphe. Mildfirst CMC osteoarthritis. 4 mm linear nonspecific linear calcification along the medial aspect of theelbow. The soft tissues are otherwise unremarkable. IMPRESSION: No acute fracture or malalignment. us Orlando Simpson M.D. IM DIAGNOSTIC IMAGING PROCE DUR Final Result * DX Radius Ulna Right 2 Views (11/10/2021 10:08 AM CDT) Anatomical Region Laterality Modality Upper Extremity, Forearm, Mu sculoskeletal RST LOS, Musculoskeletal ARZ LOS, Muskuloskeletal FLA LOS Right Digit al Radiography 11/10/2021 10:2 4 AM CDT Impressions 11/10/2021 10:27 AM CDT No acute fracture or malalignment. Narrative 11/10/2021 10:27 AM CDT EXAM: DX RADIUS ULNA RIGHT 2 VIEWS, DX WRIST RIGHT 3+ VIEWS COMPARISON: None FINDINGS: No acute fracture or malalignment. Moderate triscaphe. Mild first CMC osteoarthritis. 4 mm linear nonspecific linear calcification along the medial aspect of the elbow. The soft tissues are otherwise unremarkable. Procedure Note Maged Luong M.D. - 11/10/2021 EXAM: DX RADIUS ULNA RIGHT 2 VIEWS, DX WRIST RIGHT 3+ VIEWS COMPARISON: None FINDINGS: No acute fracture or malalignment. Moderate triscaphe. Mildfirst CMC osteoarthritis. 4 mm linear nonspecific linear calcification along the medial aspect of theelbow. The soft tissues are otherwise unremarkable. IMPRESSION: No acute fracture or malalignment. us Orlando Simpson M.D. IMG DIAGNOSTIC IMAGING PROCE DURES Final Result * DX Abdomen 1 View (05/09/2021 1:43 AM GLOBAL CEO) Anatomical Region Laterality Modality Abdomen, Abdominal RST LOS, Abdominal ARZ LOS, Abdominal FLA LOS N/A Digital Radiography 05/09/2021 7:16 AM GLOBAL CEO Impressions 05/09/2021 7:18 AM GLOBAL CEO 1. No radiopaque or metallic foreign body identified over the abdomen or pelvis. 2. Constipation. Narrative 05/09/2021 7:18 AM GLOBAL CEO EXAM: DX ABDOMEN 1 VIEW COMPARISON: None FINDINGS: No radiopaque or metallic foreign body identified over the abdomen and pelvis. There is a moderate amount of stool in the right and left colon consistent with constipation. Bowel gas pattern is otherwise nonspecific. No abnormal mass or suspicious calcification is noted. Procedure Note Arun Matson Jr., M.D. - 05/09/2021 EXAM: DX ABDOMEN 1 VIEW COMPARISON: None FINDINGS: No radiopaque or metallic foreign body identified over theabdomen and pelvis. There is a moderate amount of stool in the right and left colon consistent withconstipation. Bowel gas pattern is otherwise nonspecific. No abnormal mass or suspicious calcification isnoted. IMPRESSION: 1. No radiopaque or metallic foreign body identified over the abdomen orpelvis. 2. Constipation. Bela Sauceda P.A.-C. IMG DIAGNOSTIC IMAGING PROCEDURES Final Result * INR, POCT (04/29/2021 11:25 AM GLOBAL CEO) Only the most recent of5 resultswithin the time period is included. INR, POCT, B 3.2 04/29/2021 11:[address] [facility] Comment: ----ADDITIONAL INFORMATION---- Standard intensity warfarin therapeutic range: 2.0 to 3.0 High intensity warfarin therapeutic range: 2.5 to 3.5 04/29/2021 11:2 5 AM GLOBAL CEO 04/29/2021 11:27 AM GLOBAL CEO Generic [facility]als LAB POCT ORDERABLES - DEVICE Fin al Result Performing Organization Address [facility]/ZIP Co de Phone Number [address] [address], [facility] in [address] [address] * (ABNORMAL) Troponin T, Baseline, 5th gen (12/20/2020 4:35 PM CDT) Only the most recent of2 resultswithin the time period is included. Troponin T, Baseline, 5th gen 16(H) <=15 ng/L 12/20/2020 4:[address] [facility] Comment: Biotin has been identified by the quality liaison as a potential interfering substance. Higher concentrations of biotin may be found in multivitamins, hair/nail supplements, and workout supplements. If the result does not match clinical observations, repeat testing after patient refrains from the use of supplements for at least 12 hours. Blood (Blood, Venous) 12/20/2020 4:35 PM CDT 12/20/2020 4:37 PM CDT Bruce Medrano P.A.-C. LAB BLOOD TROPONIN Final Resul t Performing Organization Address [facility]/ZIP Co de Phone Number [address] [address], [facility] in [address] [address] * Prothrombin Time (PT) (12/20/2020 4:35 PM CDT) Only the most recent of5 resultswithin the time period is included. Prothrombin Time, P 10.8 9.4 - 12.5 sec 12/20/2020 4:45 PM CDT [facility] INR 0.9 0.9 - 1.1 12/20/2020 4:45 PM CDT [facility] Comment: ----ADDITIONAL INFORMATION---- Standard intensity warfarin therapeutic range: 2.0 to 3.0 High intensity warfarin therapeutic range: 2.5 to 3.5 Blood (Blood, Venous) 12/20/2020 4:35 PM CDT 12/20/2020 4:37 PM CDT us Bruce Medrano P.A.-C. LAB BLOOD ADD-ON Final Result [facility] [address] [place] [phone], [facility] [place] [address] * (ABNORMAL) CBC with Differential, Blood (12/20/2020 4:35 PM CDT) Only the most recent of4 resultswithin the time period is included. Pathologist [facility] Hemoglobin 16.1 13.2 - 16.6 g/dL 12/20/2020 4:41 PM CDT [facility] Hematocrit 45.9 38.3 - 48.6 % 12/20/2020 4:41 PM CDT [facility] Erythrocytes 5.02 4.35 - 5.65 x10(12)/L 12/20/2020 4:41 PM CDT [facility] MCV 91.4 78.2 - 97.9 fL 12/20/2020 4:41 PM CDT [facility] RBC Distrib Width 12.6 11.8 - 14.5 % 12/20/2020 4:41 PM CDT [facility] Platelet Count 263 135 - 317 x10(9)/L 12/20/2020 4:41 PM CDT [facility] Leukocytes 9.9(H) 3.4 - 9.6 x10(9)/L 12/20/2020 4:41 PM CDT [facility] Neutrophils 7.29(H) 1.56 - 6.45 x10(9)/L 12/20/2020 4:41 PM CDT [facility] Lymphocytes 1.83 0.95 - 3.07 x10(9)/L 12/20/2020 4:41 PM CDT [facility] Monocytes 0.54 0.26 - 0.81 x10(9)/L 12/20/2020 4:41 PM CDT [facility] Eosinophils 0.23 0.03 - 0.48 x10(9)/L 12/20/2020 4:41 PM CDT [facility] Basophils 0.03 0.01 - 0.08 x10(9)/L 12/20/2020 4:41 PM CDT [facility] Blood (Blood, Venous) 12/20/2020 4:35 PM CDT 12/20/2020 4:37 PM CDT Bruce Medrano P.A.-C. LAB BLOOD ADD-ON Final Result Performing Organization Address [facility] Co de Phone Number [address] [address], [facility] in [address] [address] * (ABNORMAL) Magnesium (12/20/2020 4:35 PM CDT) Only the most recent of3 resultswithin the time period is included. Magnesium, P 1.4(L) 1.7 - 2.3 mg/dL 12/20/2020 4:56 PM CDT [facility] Blood (Blood, Venous) 12/20/2020 4:35 PM CDT 12/20/2020 4:37 PM CDT Bruce Medrano P.A.-C. LAB BLOOD ADD-ON Final Result Performing Organization Address [facility] Co de Phone Number [facility] [address] [place] [phone], [facility] in [address] [address] * (ABNORMAL) Comprehensive Metabolic Panel (12/20/2020 4:35 PM CDT) Potassium, P 4.3 3.6 - 5.2 mmol/L 12/20/2020 4:56 PM CDT [facility] Sodium, P 137 135 - 145 mmol/L 12/20/2020 4:56 PM CDT [facility] Chloride, P 98 98 - 107 mmol/L 12/20/2020 4:56 PM CDT [facility] Bicarbonate, P 22 22 - 29 mmol/L 12/20/2020 4:56 PM CDT [facility] Anion Gap, P 17(H) 7 - 15 12/20/2020 4:56 PM CDT [facility] BUN (Blood Urea Nitrogen), P 12 8 - 24 mg/dL 12/20/2020 4:56 PM CDT [facility] Creatinine 1.17 0.74 - 1.35 mg/dL 12/20/2020 4:56 PM CDT [facility] eGFR-Black/ 81 >=60 mL/min/BS A 12/20/2020 4:56 PM CDT [facility] Comment: ----ADDITIONAL INFORMATION---- Estimated GFR calculated using the 2009 CKD_EPI creatinine equation. eGFR Non-Black/ 70 >=60 mL/min/BS A 12/20/2020 4:56 PM CDT [facility] Comment: ----ADDITIONAL INFORMATION---- Estimated GFR calculated using the 2009 CKD_EPI creatinine equation. Calcium, Total, P 9.6 8.6 - 10.0 mg/dL 12/20/2020 4:56 PM CDT [facility] Glucose, P 390(H) 70 - 140 mg/dL 12/20/2020 4:56 PM CDT [facility] Protein, Total, P 6.8 6.3 - 7.9 g/dL 12/20/2020 4:56 PM CDT [facility] Albumin, P 4.2 3.5 - 5.0 g/dL 12/20/2020 4:56 PM CDT [facility] Aspartate Aminotransferase (AST), P 13 8 - 48 U/L 12/20/2020 4:56 PM CDT [facility] Alkaline Phosphatase, P 127 40 - 129 U/L 12/20/2020 4:56 PM CDT [facility] Alanine Aminotransferase (ALT), P 19 7 - 55 U/L 12/20/2020 4:56 PM CDT [facility] Bilirubin, Total, P 0.4 <=1.2 mg/dL 12/20/2020 4:56 PM CDT [facility] Blood (Blood, Venous) 12/20/2020 4:35 PM CDT 12/20/2020 4:37 PM CDT Bruce Medrano P.A.-C. LAB BLOOD ADD-ON Final Result [facility] [address] [place] [phone], [facility] in [address] [address] * (ABNORMAL) Urinalysis with Microscopic: Urine, Midstream (12/05/2020 3:08 PM CDT) Only the most recent of2 resultswithin the time period is included. Source Midstream 12/05/2020 3:14 PM CDT [facility] Clarity Clear Clear 12/05/2020 3:14 PM CDT [facility] Color Yellow 12/05/2020 3:14 PM CDT [facility] Comment: ----REFERENCE VALUE---- Colorless Yellow Yulia Blood Negative Negative 12/05/2020 3:14 PM CDT [facility] Nitrite Negative Negative 12/05/2020 3:14 PM CDT [facility] Leukocyte Esterase Trace(A) Negative 12/05/2020 3:14 PM CDT [facility] Protein Negative mg/dL 12/05/2020 3:14 PM CDT [facility] Comment: ----REFERENCE VALUE---- Negative Trace Glucose 100(A) Negative mg/dL 12/05/2020 3:14 PM CDT [facility] Ketones, QI(U) Negative Negative mg/dL 12/05/2020 3:14 PM CDT [facility] Bilirubin Negative Negative 12/05/2020 3:14 PM CDT [facility] pH 5.0 5.0 - 8.0 12/05/2020 3:14 PM CDT [facility] Specific [place] 1.025 1.001 - 1.035 12/05/2020 3:14 PM CDT [facility] Urobilinogen 0.2 0.2 - 1.0 mg/dL 12/05/2020 3:14 PM CDT [facility] White Blood Cells Occ-3 /hpf 12/05/2020 3:21 PM CDT [facility] Comment: ----REFERENCE VALUE---- Males: 0-3 Females: 0-10 Unknown: 0-10 Red Blood Cells None Seen 0 - 2 /hpf 3:21 PM CDT [facility] Squamous Cells Occ-3 /hpf 12/05/2020 3:21 PM CDT [facility] Urine (Urine, Midstream) 12/05/2020 3:08 PM CDT 12/05/2020 3:13 PM CDT Timur Jackman APRNN.P., M.S. LAB URINE ORDERABLES Final Result Performing Organization Address [facility] Co de Phone Number [facility] [address] [place] [phone], [facility] [place] [address] * (ABNORMAL) Bacterial Culture, Aerobic + Susc, Urine (12/01/2020 7:50 PM CDT) Urine Culture Mixed ann marie.(A) 12/03/2020 8:23 AM CDT [facility] Urine (Urine, Straight Catheter) 12/01/2020 7:50 PM CDT 12/02/2020 2:54 PM CDT Comment:Specimen Source Site : Urine us Bela Sauceda P.A.-C. LAB MICROBIOLOGY - GEN ERAL ORDERABLES Final Result Performing Organization Address City/[facility]/ZIP Co de Phone Number [facility] [address] [place] [phone], [facility] [place] [address] [place] [phone] * [facility] PGx test + MTHFR - Sent Out Lab (08/01/2020 1:07 PM CDT) [facility] Laboratory Comments No Comments 08/08/2020 3:09 PM CDT [facility] CY phenotype Rapid 06/04/20 21 3:09 PM CDT [facility] CY genotype *1F/*1F 3:09 PM CDT [facility] Comment: Increased activity. Drugs converted to active metabolite(s) may have increased exposure. Active drugs converted to inactive metabolite(s) may have decreased exposure. CYP2B6 phenotype Intermediate 2020 3:09 PM CDT [facility] CYP2B6 genotype *1/*6 3:09 PM CDT [facility] Comment: Decreased activity. Drugs converted to active metabolite(s) may have reduced exposure. Active drugs converted to inactive metabolite(s) may have increased exposure. CYP2C9 phenotype Normal 08/09/19 3:09 PM CDT [facility] CYP2C9 genotype *1/*1 3:09 PM CDT [facility] Comment:Normal activity. Isrrael gs metabolized at a normal rate. CYP2C cluster phenotype Normal 08/08/2020 3:09 PM CDT [facility] CYP2C cluster genotype [id number] GG 08/08/2020 3:09 PM CDT [facility] Comment: CYP2C [id number] homozygous wild-type genotype consistent with normal clearance of a certain medication, independent of the impact of CYP2C9*2 and *3. CYP2C [id number], together with CYP4F2, CYP2C9, and VKORC1, may affect treatment management of a certain medication. [id number] phenotype Rapid 021 3:09 PM CDT [facility] [id number] genotype *1/*17 08/09/19 3:09 PM CDT [facility] Comment: Increased activity. Drugs converted to active metabolite(s) may have increased exposure. Active drugs converted to inactive metabolite(s) may have decreased exposure. CYP2D6 phenotype Normal 08/09/19 3:09 PM CDT [facility] CYP2D6 genotype *1/*2A 3:09 PM CDT [facility] Comment:Normal activity. Isrrael gs metabolized at a normal rate. CY phenotype Normal 08/09/19 3:09 PM CDT [facility] CY genotype *1/*1 3:09 PM CDT [facility] Comment:Normal activity. Isrrael gs metabolized at a normal rate. CY phenotype Poor 08/09/19 3:09 PM CDT [facility] CY genotype *3/*3 3:09 PM CDT [facility] Comment: This CY genotype is associated with the phenotype most prevalent in studies used to define standard dosing guidelines. CYP4F2 phenotype Normal activity 06/2020 3:09 PM CDT [facility] CYP4F2 genotype *1/*1 3:09 PM CDT [facility] Comment: Genotype consistent with normal activity of the CYP4F2 enzyme, which catalyzes the metabolism of vitamin K, in counterpoint to the activity of VKORC1. CYP4F2, together with CYP2C9, VKORC1, and a variant in CYP2C Cluster, may affect treatment management of a certain medication. COMT phenotype Intermediate activity 08/08/2020 3:09 PM CDT [facility] COMT genotype [id number] GA 08/08/2020 3:09 PM CDT [facility] Comment: The COMT GA (Aimee/Met) genotype is predicted to yield lower COMT activity than the GG (Aimee/Aimee) genotype, but higher than the AA (Met/Met) genotype at ss3132. DPYD phenotype DPD activity score: 2 08/08/2020 3:09 PM CDT [facility] DPYD genotype *1/*1 08/08/2020 3:09 PM CDT [facility] Comment: Genotype consistent with normal dihydropyrimidine dehydrogenase (DPD) activity with an activity score of 2, or a normal metabolizer phenotype. DRD2 phenotype Normal receptor expression 08/08/2020 3:09 PM CDT [facility] DRD2 genotype [id number] AA 3:09 PM CDT [facility] Comment: Homozygous wild-type dopamine receptor D2 (DRD2) [id number] AA genotype is consistent with normal receptor expression. F2 phenotype Normal risk 08/08/2020 3:09 PM CDT [facility] F2 genotype [id number] GG 08/08/2020 3:09 PM CDT [facility] Comment: Normal risk of thrombosis associated with Factor II (prothrombin). Other genetic and clinical factors contribute to the risk for thrombosis. F5 phenotype Normal risk 08/08/2020 3:09 PM CDT [facility] F5 genotype [id number] GG 08/08/2020 3:09 PM CDT [facility] Comment: Normal risk of thrombosis associated with Factor V. Other genetic and clinical factors contribute to the risk for thrombosis. GRIK4 phenotype Normal receptor function 08/08/2020 3:09 PM CDT [facility] GRIK4 genotype [id number] TC 08/09/19 3:09 PM CDT [facility] Comment: Glutamate ionotropic receptor kainate type subunit 4 (GRIK4) genotype is consistent with normal receptor function. HLA-A phenotype Normal risk 08/09/19 3:09 PM CDT [facility] HLA-A genotype Negative 08/08/2020 3:09 PM CDT [facility] Comment: Negative for the presence of the HLA-A*31:01 allele. Normal risk of hypersensitivity induced by certain medications, and possibly others of structural similarity. Hypersensitivity and severe cutaneous reactions may occur regardless of the presence of the HLA-A*31:01 allele, in particular the presence of the HLA-B*15:02 allele is associated with severe cutaneous reactions induced by certain medications. HLA-B phenotype Normal risk 08/09/19 3:09 PM CDT [facility] HLA-B genotype Negative 08/08/2020 3:09 PM CDT [facility] Comment: Negative for presence of the HLA-B*15:02, HLA-B*57:01, and HLA-B*58:01 alleles. Normal risk of hypersensitivity, severe cutaneous reactions, and severe hepatotoxicity induced by certain medications. Hypersensitivity, severe cutaneous reactions, and severe hepatotoxicity may occur regardless of the presence of HLA-B*15:02, HLA-B*57:01, or HLA-B*58:01 alleles. In particular, the presence of the HLA-A*31:01 allele is associated with hypersensitivity reactions induced by a certain medication, and possibly other medications of structural similarity. HTR2A phenotype Intron 2 genotype AG 08/08/2020 3:09 PM CDT [facility] HTR2A genotype [id number] AG 08/09/19 3:09 PM CDT [facility] Comment: Heterozygous HTR2A (5-hydroxytryptamine receptor 2A) genotype is consistent with normal HTR2A receptor function. HTR2C phenotype Normal influence 08/08/2020 3:09 PM CDT [facility] HTR2C genotype [id number] CC 08/09/19 3:09 PM CDT [facility] Comment: Homozygous wild-type HTR2C [5-hydroxytryptamine (serotonin) receptor 2C] genotype is associated with a normal influence on weight gain related to certain medications. The HTR2C gene is located on the X chromosome. In patients with only one X, result should read [id number] C;-. IL28B (IFNL4) phenotype Variant present 08/08/2020 3:09 PM CDT [facility] IL28B (IFNL4) genotype [id number] TT 08/08/2020 3:09 PM CDT [facility] Comment: Genotype consistent with a reduced likelihood of hepatitis C sustained virologic response (SVR) with certain treatment options. MTHFR phenotype Severely decreased activity 08/08/2020 3:09 PM CDT [facility] MTHFR genotype [id number] AA, [id number] TT 08/08/2020 3:09 PM CDT [facility] Comment: Severely decreased MTHFR activity. The conversion from folic acid to methylated folate (the active form of folate) is predicted to be lower than normal, although other genetic and/or clinical factors may influence the folate cycle. NUDT15 phenotype Normal risk 021 3:09 PM CDT [facility] NUDT15 genotype [id number] CC 08/08 3:09 PM CDT [facility] Comment: Genotype consistent with normal NUDT15 activity and is not associated with an increased risk of thiopurine-induced toxicities. Reduced metabolizer phenotypes of TPMT are associated with an increased risk of thiopurine-induced toxicities, independent of NUDT15 activity. OPRM1 phenotype Asn/Asn isoform 06/2020 3:09 PM CDT [facility] OPRM1 genotype [id number] AA 08/09/19 21 3:09 PM CDT [facility] Comment: OPRM1 Asn/Asn (AA) genotype consistent with normal mu-1 opioid receptor function, and normal to increased sensitivity to the effects of certain substrates has been observed when compared to OPRM1 Asn/Asp (AG) or Asp/Asp (GG) genotypes at [id number]. Normal to increased sensitivity has not been consistently observed in this genotype for all substrates that activate the mu-1 receptor. GKOW1P0 phenotype Normal function 3:09 PM CDT [facility] [id number] genotype *1A/*1B 08/09/19 21 3:09 PM CDT [facility] Comment: EQHP0E0 genotype consistent with normal function of the VABB2W0 transporter. TPMT phenotype Normal metabolizer 08/08/2020 3:09 PM CDT [facility] TPMT genotype *1/*1 08/08/2020 3:09 PM CDT [facility] Comment: TPMT genotype consistent with a normal metabolizer phenotype and is not associated with an increased risk of thiopurine-induced toxicities. Impaired NUDT15 activity is associated with an increased risk of thiopurine-induced toxicities, independent of TPMT phenotype. UGT1A1 phenotype Normal metabolizer 08/08/2020 3:09 PM CDT [facility] UGT1A1 genotype *1/*1 3:09 PM CDT [facility] Comment: Genotype consistent with fully functional UGT1A1 enzyme activity, or a normal metabolizer phenotype. VKORC1 phenotype Normal activity 06/2020 3:09 PM CDT [facility] VKORC1 genotype [id number] GG 3:09 PM CDT [facility] Comment: Genotype consistent with normal activity of the vitamin K epoxide reductase enzyme, associated with [id number] ([id number]). VKORC1, together with CYP2C9, CYP4F2, and a variant in CYP2C Cluster, may affect treatment management of a certain medication. SLC6A4 phenotype Typical to reduced expression 08/08/2020 3:09 PM CDT [facility] SLC6A4 genotype L/S (La/Sa) 08/09/19 3:09 PM CDT [facility] Comment: Genotype consistent with a typical to reduced expression of the SLC6A4 transporter compared to the L/L (La/La) genotype. This genotype was shown to exhibit different phenotypes in East populations, as opposite outcomes were observed for this genotype in East populations when compared to populations. Laboratory methods See Comment 08/08 3:09 PM CDT [facility] Comment: Analytical results were produced using tests developed and validated by [employer], a clinical laboratory located at [address] [place] [address]. These tests have not been cleared or approved by the U.S. Food and Drug Administration. [employer] is certified under CLIA-88 and accredited by the [employer] as qualified to perform high-complexity testing. This test is used for clinical purposes and should not be regarded as investigational or for research. Genomic DNA was analyzed by PCR-based [employer] TaqMan(R) and/or [facility] AndaQ(R) probe-based methods to interrogate the variant locations listed in the Test results table above. In addition, CYP2D6 copy number status was assessed at sites within the promoter, intron 2, intron 6, and exon 9. The test detects CYP2D6 deletions, duplications/multiplications, and hybrid alleles, but cannot differentiate duplications in the presence of a deletion. Haplotypes, or combinations of inherited variants on a chromosome, are annotated according to legacy nomenclature for the genes and alleles in the table below. Less frequent haplotypes or novel alleles may be reported when appropriate. CY - *1C, *1D, *1E, *1F, *1J, *1K, *1L, *1V, *1W CYP2B6 - *4, *5, *6, *7, *9, *16, *18 CYP2C9 - *2, *3, *4, *5, *6, *8, *11 [id number] - *2, *3, *4, *4B, *10, *17 CYP2D6 - *2, *2A, *3, *4, *4M, *4N, *5, *6, *6C, *7, *8, *9, *10, *11, *12, *13, *14, *15, *17, *18, *19, *20, *29, *31, *34, *35, *36, *39, 41, *42, *59, *63, *64, *68, *69, *70, *91, *109, *114 CY - *1B, *22 CY - *3, *6, *7 CYP4F2 - *3 DPYD - *2A, *13 XOEV1D9 - *5, *15, *17, *21 TPMT - *2, *3A, *3B, *3C, *4 UGT1A1 - *6, *28 The test does not detect all known and unknown variations in the genes tested, nor does absence of a detectable variant (designated as *1 for genes encoding drug metabolizing enzymes) rule out the presence of other, non-detected variants. As with other common SNP genotyping techniques, these assays cannot differentiate between the maternal and paternal chromosomes. In cases where observed variants are associated with more than one haplotype, [facility] infers and reports the most likely diplotype based on published allele frequency and/or ethnicity data. Inferences with potential clinical impact are reported in the Report and laboratory comments section. The variant detection methods validated by [employer] provide >99.9% accuracy; however, PCR may be subject to general interference by factors such as reaction inhibitors and low quality or quantity of extracted DNA. When present, these interferents typically yield no result rather than an inaccurate one. Very infrequent mutations or polymorphisms occurring in primer- or probe-binding regions may also affect testing and could produce an erroneous result or assay failure. Variant locations tested by the assay but not assigned a genotype call are reported as No Call. Test results and clinical interpretation may be inaccurate for individuals who have undergone or are receiving non-autologous blood transfusions, tissue, and/or organ transplant therapies. Although extremely rare, results could also be impacted by other factors not addressed above, such as laboratory error. Due to the complexity of interpreting some genetic test results, such as those that may carry a probabilistic risk of disease, patients and providers should consider the benefits of consulting with a trained genetic counseling professional, physician, or pharmacogenomic specialist. Swab (Cheek, Left) 08/01/2020 1:07 PM CDT 08/02/2020 10:27 AM CDT Ludmila Rose APRN, C.N.P., M.S. LAB GENETI C TESTING Final Result [employer] [address] [place] [address], [address] [place] [id number] [email or web address] [address], [address] [place] [address] * COLONOSCOPY (07/15/2020 2:05 PM CDT) Narrative Procedure Note Edgar Hargrove M.D. - 07/15/2020 2:05 PM CDT [facility] Patient Name: Parish Amato Procedure Date: 07/15/2020 2:05 PM Date of : 1965 Age: 55 Gender: Male Procedure: Colonoscopy Providers: Edgar Hargrove MD, Ludmila Rose (Ordering Provider) Referring Provider: Ludmila Rose Pre-op Diagnoses: Screening for colorectal malignant neoplasm Post-op Diagnoses: Recommendation: - Use fiber, for example Citrucel, Fibercon, Konsyl or Metamucil. - Follow up recommendations for patients with polyps identifiedduring colonoscopy are impacted by several factors including polyp characteristics (size, number and histology), adequacy of colonic preparation and pertinent family history. For [facility] providers, detailed recommendations are available as an AskMayoExpert CareProcess Model: <[email or web address] There may be some circumstances, specifically those patients with a personal or family history of significant colorectal neoplasms where these guidelines may not apply. Consider consultation in Gastroenterology for all other polyp findings or for patients who are not at average risk. - Repeat colonoscopy in 1 year for surveillance. - Await pathology results. Findings: The perianal and digital rectal examinations were normal. Diverticula were found in the sigmoid colon. Many (15) sessile polyps were found in the sigmoid colon. The polyps were 2 to 8 mm in size; most over 5 mm and sessile serrated in appearance. These polyps were removed with a cold snare. Resectionand retrieval were complete. The exam was otherwise without abnormality on direct and retroflexion views. Medicines: See [facility] nursing notes Estimated Blood Loss: Estimated blood loss: none. Complications: No immediate complications. Procedure Details: The patient was seen, evaluated, and history reviewed. Airway and heart and lung exams were performed and were satisfactory for plannedsedation care. The risks, benefits and alternatives for the procedure and sedation were discussed andinformed consent was obtained. A procedural pause was conducted in the presence of assisting personnelto verify the correct patient identity and procedureto be performed. Throughout the procedure, the patient's blood pressure, pulse, and oxygen saturations were monitored continuously. The Colonoscope was introduced under directvision through the anus and advanced to the terminalileum. The colonoscopy was performed without difficulty. The patient tolerated the procedure well. The quality of the bowel preparation was evaluatedusing the BBPS ([place] Bowel Preparation Scale) with scores of: Right Colon = 2 (minor amount ofresidual staining, small fragments of stool and/or opaque liquid, but mucosa seen well), Transverse Colon =2 (minor amount of residual staining, smallfragments of stool and/or opaque liquid, but mucosa seenwell) and Left Colon = 2 (minor amount of residual staining, small fragments of stool and/or opaque liquid, but mucosa seen well). The total BBPSscore equals 6. Sedation: Anesthesia was administered by an anesthesia professional. Thefollowing parameters were monitored: oxygen saturation, heart rate, blood pressure, respiratory rate, EKG, adequacy of pulmonary ventilation,and response to care. Edgar Hargrove MD 07/15/2020 2:08:51 PM This report has been signed electronically. Number of Addenda: 0 Note Initiated On: 07/15/2020 2:05 PM Ludmila Rose APRN, C.N.P., M.S. GI PROCEDU RE ORDERABLES Final Result * COLONOSCOPY-GI And General Surgery Image Exam (07/15/2020 1:30 PM CDT) 07/15/2020 1:30 PM CDT Narrative [facility] - 07/15/2020 2:14 PM CDT This order has been created and auto-finalized to support the import of images acquired without order. The clinical documentation to support these images can be found on the encounter that produced images. Provider Not In System IMG NON RAD IMAGING PROCE DURES Final Result IIUT NA * (ABNORMAL) Cologuard-Sent Out Lab (05/08/2020 2:30 AM [facility]LOBAL CEO) Result Positive( A) Not Applicable 05/15/2020 10:41 AM [facility] CEO EXLI Comment: It is recommended that a positive Cologuard screen be clinically correlated and followed-up with a structural examination of the colon such as diagnostic colonoscopy. Colonoscopies performed for a positive Cologuard may find as the most clinically significant lesion: colorectal cancer [4.0%], advanced adenoma (including sessile serrated polyps greater than or equal to 1cm diameter) [20%] or non- advanced adenoma [31%]; or no colorectal neoplasia [45%]. These estimates are derived from a prospective cross-sectional screening study of 10,000 individuals at average risk for colorectal cancer who were screened with both Cologuard and colonoscopy. (Table 3, Vladislav Heaton al, N Engl J Med 2014;370(14):1797-7868.) The normal value (reference range) for this assay is negative. TEST TYPE: Composite algorithmic analysis of stool DNA-biomarkers with hemoglobin immunoassay. Quantitative values of individual biomarkers are not reportable and are not associated with individual biomarker result reference ranges. PRECAUTIONS AND LIMITATIONS: Cologuard is intended for colorectal cancer screening of adults of either sex, 45 years or older, who are at average-risk for colorectal cancer (CRC). Cologuard has been approved for use by the [place] FDA. Cologuard may produce a false negative or false positive result. A negative Cologuard test result does not guarantee the absence of CRC or advanced adenoma (pre-cancer). Patients with a negative Cologuard test result should be advised to continue participating in a colorectal cancer screening program. The screening interval for Cologuard is currently recommended at an interval of every 3 years by the [place] [employer] and [place]. Multi-Society Task Force. A false positive result occurs when Cologuard produces a positive result, even though a colonoscopy may not find colorectal cancer or precancerous polyps. The performance of Cologuard has been established in a cross sectional study (i.e., single point in time) of average-risk adults aged 50-84. Cologuard performance in patients ages 45 to 49 years was estimated by sub-group analysis of near-age groups. Cologuard performance data in a 10,000 patient pivotal study using colonoscopy as the reference method can be accessed at the following location: [email or web address]. Additional description of the Cologuard test process, warnings and precautions can be found at [email or web address]. Rx only. Stool 05/08/2020 2:30 AM GLOBAL CEO 05/09/2020 12:30 PM GLOBAL CEO Ludmila Rose APRN C.N .P., M.S. LAB BODY FLUIDS AND STOOLS ORDERABLES Final Result [employer] [address] [place] [address] [employer] [address] [facility], [address] [place] [address] * (TTE) 2D LIMITED ONLY AND CONTRAST (02/13/2020 10:48 AM GLOBAL CEO) Ejection Fraction 65 MC CV EIMS LV Mass Index 101 MC CV EIMS LV End-Diastolic Diameter 43 MC CV EIMS LV End-Systolic Diameter 26 MC CV EIMS LV End-Diastolic Volume 85 MC CV EIMS LV End-Systolic Volume 29 MC CV EIMS LV Interventricular Septal Wall Thickness 14 MC CV EIMS LV Posterior Wall Thickness 15 MC CV EIMS LV Relative Wall Thickness 70 MC CV EIMS Anatomical Region Laterality Modality Echocardiography 02/13/2020 9:19 AM GLOBAL CEO Impressions 02/13/2020 12:35 PM GLOBAL CEO Transthoracic outreach echo interpretation. Goal oriented echocardiogram to assess left ventriucalr function only per ordering provider. Patient allergies and medications were reviewed and medication reconciliation deferred to patient care area. Intravenous Lumason ultrasound enhancement agent(s) administered to enhance endocardial border definition. Imaging enhancement agent administered per Echocardiography Contrast Administration Protocol Reference Document [id number]. Patient met an inclusion criterion and did not have contraindications in screening sections Attempts were made to optimize the echocardiographic images and two or more left ventricular segments were not visualized adequately to evaluate cardiac structure. LEFT VENTRICLE: Normal left ventricular chamber size. Mildly increased concentric left ventricular wall thickness. Calculated 2-D biplane volumetric left ventricular ejection fraction 65 %. No regional wall motion abnormalities. RIGHT VENTRICLE: Normal right ventricular chamber size. Normal right ventricular systolic function. OTHER ECHO FINDINGS: Inferior vena cava not well visualized. No intracardiac mass or thrombus, but the left atrial appendage cannot be visualized adequately with transthoracic echo to exclude thrombus in this location. No pericardial effusion. For the complete report, see the Order-Level Documents. Narrative 02/13/2020 12:35 PM GLOBAL CEO For the complete report, see the Order-Level Documents. Final Impressions 1. Goal oriented echocardiogram to assess left ventriucalr function only per ordering provider. 2. Normal left ventricular chamber size, with an ejection fraction of 65%. 3. Normal right ventricular chamber size, with normal systolic function. 4. Compared to the report of 07/04/2019 no significant change has occurred. Side by side comparison of images performed Only ventricular function was compared. Procedure Note Ashley Gibbs M.D. - 02/13/2020 For the complete report, see the Order-Level Documents. Final Impressions 1. Goal oriented echocardiogram to assess left ventriucalr function onlyper ordering provider. 2. Normal left ventricular chamber size, with an ejection fraction of65%. 3. Normal right ventricular chamber size, with normal systolic function. 4. Compared to the report of 07/04/2019 no significant change hasoccurred. Side by side comparison of images performed Only ventricular function was compared. Findings Transthoracic outreach echo interpretation. Goal oriented echocardiogramto assess left ventriucalr function only per ordering provider. Patient allergies andmedications were reviewed and medication reconciliation deferred to patient care area.Intravenous Lumason ultrasound enhancement agent(s) administered to enhance endocardial borderdefinition. Imaging enhancement agent administered per Echocardiography ContrastAdministration Protocol Reference Document [id number]. Patient met an inclusion criterion and did not havecontraindications in screening sections Attempts were made to optimize the echocardiographicimages and two or more left ventricular segments were not visualized adequately to evaluatecardiac structure. LEFT VENTRICLE: Normal left ventricular chamber size. Mildly increasedconcentric left ventricular wall thickness. Calculated 2-D biplane volumetric left ventricularejection fraction 65 %. No regional wall motion abnormalities. RIGHT VENTRICLE: Normal rightventricular chamber size. Normal right ventricular systolic function. OTHER ECHO FINDINGS:Inferior vena cava not well visualized. No intracardiac mass or thrombus, but the left atrialappendage cannot be visualized adequately with transthoracic echo to exclude thrombus in thislocation. No pericardial effusion. For the complete report, see the Order-Level Documents. Katharine Cheema APRN, C.N.P., D.N.P. CV ECHO PROCEDURES Final Result * NM Cardiac Perfusion Rest and Stress SPECT (10/09/2019 1:21 PM CDT) 10/09/2019 9:33 AM CDT Narrative CV MERGE - 10/09/2019 3:48 PM CDT See PDF For Result Procedure Note Rishi Amador M.D. - 10/09/2019 See PDF For Result Katharine Cheema APRN, C.N.P., D.N.P. IMG NM PROCEDURES Final Result [facility] MERGE NA * LOOP RECORDER IMPLANT - LINQ (07/06/2019 12:22 PM CDT) Anatomical Region Laterality Modality Digital Radiogra phy 07/06/2019 11:5 9 AM CDT Narrative 07/06/2019 1:58 PM CDT For the complete report, see the Order-Level Documents. PROCEDURE TYPES 1. LOOP RECORDER IMPLANT - LINQ PRE-PROCEDURE DIAGNOSIS 1. Syncope For the complete report, see the Order-Level Documents. Procedure Note Charles Bermudez M.D. - 07/06/2019 For the complete report, see the Order-Level Documents. PROCEDURE TYPES 1. LOOP RECORDER IMPLANT - LINQ PRE-PROCEDURE DIAGNOSIS 1. Syncope For the complete report, see the Order-Level Documents. Katharine Cheema APRN, C.N.P., D.N.P. CV ELEC TROPHYSIOLOGY PROCS Final Result * Phosphorus Inorganic (07/05/2019 6:23 AM CDT) Phosphorus (Inorganic), P 3.3 2.5 - 4.5 mg/dL 07/05/2019 7:12 AM CDT [facility] Blood (Blood, Venous) 07/05/2019 6:23 AM CDT 07/05/2019 6:43 AM CDT Augustine Kothari M.D. LAB BLOOD ADD-ON Final Resu lt [facility] [address] [place] [address], [place] [facility] [place] [address] [place] [address] * (TTE) 2D ECHO DOPPLER COLOR AND CONTRAST (07/04/2019 10:54 AM CDT) Ejection Fraction 62 MC CV EIMS Mid-Ascending Aorta 36 MC CV EIMS LV Mass Index 99 MC CV EIMS LV End-Diastolic Diameter 49 MC CV EIMS LV End-Systolic Diameter 32 MC CV EIMS LV End-Diastolic Volume 123 MC CV EIMS LV End-Systolic Volume 58 MC CV EIMS MV E Velocity 0.6 MC CV EIMS MV A Velocity 0.6 MC CV EIMS MV E/A 1.00 MC CV EIMS MV e' Velocity Medial 0.08 MC CV EIMS MV e' Velocity Lateral 0.10 MC CV EIMS MV E/e' Medial 7.5 MC CV EIMS MV E/e' Lateral 6.0 MC CV EIMS Left ventricular stroke volume index 34 MC CV EIMS Cardiac Output 5.69 MC CV EIMS Cardiac Index 2.36 MC CV EIMS LV Interventricular Septal Wall Thickness 13 MC CV EIMS LV Posterior Wall Thickness 12 MC CV EIMS LV Relative Wall Thickness 49 MC CV EIMS RV 4-Chamber Basal Diameter 34 MC CV EIMS RV 4-Chamber Mid Diameter 28 MC CV EIMS RV 4-Chamber Length 68 MC CV EIMS TAPSE 22 MC CV EIMS AV mean gradient 4 MC CV EIMS Aortic valve area 2.74 MC CV EIMS Aortic Valve Dimensionless Index 0.56 MC CV EIMS LA Volume Index 32 MC CV EIMS Anatomical Region Laterality Modality Echocardiography 07/04/2019 9:31 AM CDT Impressions 07/04/2019 11:50 AM CDT Bedside echo performed. Patient allergies and medications were reviewed and medication reconciliation deferred to patient care area. Intravenous Lumason ultrasound enhancement agent was administered to enhance endocardial border definition. Imaging enhancement agent administered per Echocardiography Contrast Administration Protocol Reference Document [id number]. Patient met an inclusion criterion and did not have contraindications in screening sections Attempts were made to optimize the echocardiographic images and two or more left ventricular segments were not visualized adequately to evaluate cardiac structure. LEFT VENTRICLE: Normal left ventricular chamber size. Normal left ventricular wall thickness. Calculated 2-D linear left ventricular ejection fraction 62 %. No regional wall motion abnormalities. Normal left ventricular diastolic function. RIGHT VENTRICLE: Normal right ventricular chamber size. Normal right ventricular systolic function. Unable to detect peak tricuspid regurgitation velocity for pulmonary artery systolic pressure calculation. ATRIA: Normal left atrial size. Left atrial volume index 32 ml/m^2. Normal right atrial size. CARDIAC VALVES: Trileaflet aortic valve. Aortic valve changes consistent with age. No aortic valve regurgitation. Normal mitral valve. Trivial mitral valve regurgitation. Pulmonary valve not well visualized. Normal pulmonary valve systolic velocity. Trivial pulmonary valve regurgitation. Normal tricuspid valve. Trivial tricuspid valve regurgitation. OTHER ECHO FINDINGS: Normal inferior vena cava size with reduced inspiratory collapse (<50%). Normal ascending aorta diameter. No intracardiac mass or thrombus, but the left atrial appendage cannot be visualized adequately with transthoracic echo to exclude thrombus in this location. No pericardial effusion. Challenging subcostal images. The atrial septum and abdominal aorta were not visualized. For the complete report, see the Order-Level Documents. Narrative 07/04/2019 11:50 AM CDT For the complete report, see the Order-Level Documents. Final Impressions 1. Normal left ventricular chamber size. 2. Calculated 2-D linear left ventricular ejection fraction 62 %. 3. No regional wall motion abnormalities. 4. Normal right ventricular chamber size. Normal right ventricular function. 5. Normal left atrial size. 6. Left atrial volume index 32 ml/m^2. Procedure Note Rishi Amador M.D. - 07/04/2019 For the complete report, see the Order-Level Documents. Final Impressions 1. Normal left ventricular chamber size. 2. Calculated 2-D linear left ventricular ejection fraction 62 %. 3. No regional wall motion abnormalities. 4. Normal right ventricular chamber size. Normal right ventricularfunction. 5. Normal left atrial size. 6. Left atrial volume index 32 ml/m^2. Findings Bedside echo performed. Patient allergies and medications were reviewedand medication reconciliation deferred to patient care area. Intravenous Lumasonultrasound enhancement agent was administered to enhance endocardial border definition. Imagingenhancement agent administered per Echocardiography Contrast Administration ProtocolReference Document [id number]. Patient met an inclusion criterion and did not havecontraindications in screening sections Attempts were made to optimize the echocardiographic images andtwo or more left ventricular segments were not visualized adequately to evaluate cardiacstructure. LEFT VENTRICLE: Normal left ventricular chamber size. Normal left ventricularwall thickness. Calculated 2-D linear left ventricular ejection fraction 62 %. Noregional wall motion abnormalities. Normal left ventricular diastolic function. RIGHTVENTRICLE: Normal right ventricular chamber size. Normal right ventricular systolic function.Unable to detect peak tricuspid regurgitation velocity for pulmonary artery systolic pressurecalculation. ATRIA: Normal left atrial size. Left atrial volume index 32 ml/m^2. Normalright atrial size. CARDIAC VALVES: Trileaflet aortic valve. Aortic valve changes consistentwith age. No aortic valve regurgitation. Normal mitral valve. Trivial mitral valveregurgitation. Pulmonary valve not well visualized. Normal pulmonary valve systolic velocity.Trivial pulmonary valve regurgitation. Normal tricuspid valve. Trivial tricuspid valveregurgitation. OTHER ECHO FINDINGS: Normal inferior vena cava size with reduced inspiratorycollapse (<50%). Normal ascending aorta diameter. No intracardiac mass or thrombus, but the leftatrial appendage cannot be visualized adequately with transthoracic echo to excludethrombus in this location. No pericardial effusion. Challenging subcostal images. The atrial septumand abdominal aorta were not visualized. For the complete report, see the Order-Level Documents. us Gab Camacho M.D. CV ECHO PROCEDURES Final Resu lt * Troponin T, 5th Generation (07/04/2019 2:40 AM CDT) Troponin T, 5th gen 10 <=15 ng/L 07/03 3:05 AM CDT [facility] Comment: Biotin has been identified by the quality liaison as a potential interfering substance. Higher concentrations of biotin may be found in multivitamins, hair/nail supplements, and workout supplements. If the result does not match clinical observations, repeat testing after patient refrains from the use of supplements for at least 12 hours. Blood (Blood, Venous) 07/04/2019 2:40 AM CDT 07/04/2019 2:44 AM CDT us Gab Camacho M.D. LAB BLOOD ADD-ON Final Result [facility] [address] [place] [address], [place] [facility] [place] [address] [place] [address] * Troponin T, 2H/6H, 5th Gen (07/03/2019 9:51 PM CDT) Troponin T, 2 hr, 5th gen 9 <=15 ng/L 07/03/2019 10:13 PM CDT [facility] Comment: Biotin has been identified by the quality liaison as a potential interfering substance. Higher concentrations of biotin may be found in multivitamins, hair/nail supplements, and workout supplements. If the result does not match clinical observations, repeat testing after patient refrains from the use of supplements for at least 12 hours. 2H Delta 0 ng/L 07/03/2019 10:13 PM CDT [facility] 2H Delta Interp Not Changing 020 10:13 PM CDT [facility] Troponin T, 6 hr, 5th gen CANCELED ng/L 07/03/2019 10:13 PM CDT [facility] Comment:Result canceled by rowdy ware ancillary. Blood (Blood, Venous) 07/03/2019 9:51 PM CDT 07/03/2019 9:55 PM CDT Narrative [facility] - 07/03/2019 10:13 PM CDT Specimen Information: Specimen ID: [id number] Specimen Type: Blood Specimen Collection Start Date: 07/03/2019 9:51 PM Specimen Received Date: 07/03/2019 9:55 PM Specimen ID: [id number] Specimen Type: Blood us Darlene Vickers APRN, C.N.P., D.N.P. LAB BLOOD TROP ONIN Final Result [facility] [address] [place] [address], [facility] [place] [address] [place] [address] * DX Chest AP or PA and Lateral 2 Views (07/03/2019 8:39 PM CDT) Anatomical Region Laterality Modality Chest, Thoracic RST LOS, Tho racic ARZ LOS, Thoracic FLA LOS N/A Digital Radiography 07/03/2019 8:39 PM CDT Impressions 07/03/2019 8:42 PM CDT No active cardiopulmonary disease. Narrative 07/03/2019 8:42 PM CDT EXAM: DX CHEST AP OR PA AND LATERAL 2 VIEWS COMPARISON: None. COMPARISON: Bony thorax is unremarkable. Heart size and pulmonary vascularity are within normal limits. Lungs are clear of infiltrates or effusions. Procedure Note Arun Matson Jr., M.D. - 07/03/2019 EXAM: DX CHEST AP OR PA AND LATERAL 2 VIEWS COMPARISON: None. COMPARISON: Bony thorax is unremarkable. Heart size and pulmonaryvascularity are within normal limits. Lungs are clear of infiltrates or effusions. IMPRESSION: No active cardiopulmonary disease. Darlene Vickers APRN, C.N.P., D.N.P. IMG DIAGNOSTIC IMAGING PROCEDURES Final Result * S-TSH (Thyroid-Stimulating Hormone - Sensitive) (07/03/2019 7:57 PM CDT) TSH, Sensitive 2.5 0.3 - 4.2 mIU/L 07/03/2019 10:[address] [facility] Comment: Biotin has been identified by the quality liaison as a potential interfering substance. Higher concentrations of biotin may be found in multivitamins, hair/nail supplements, and workout supplements. If the result does not match clinical observations, repeat testing after patient refrains from the use of supplements for at least 12 hours. Blood (Blood, Venous) 07/03/2019 7:57 PM CDT 07/03/2019 9:14 PM CDT Darlene Vickers APRN, C.N.P., D.N.P. 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) Anticoagulant Treatment 07/09/2019 Monitoring For Therapeutic Drug Therapy 07/09/2019 Atrial Fibrillation Chronic 07/09/2019 Syncope 07/17/2019 Diabetes Mellitus Type 2 With Diabetic Neuropathy Hyperglycemic (HCC) 07/17/2019 Depression Major One Episode Moderate (HCC) 07/17/2019 Atrial Fibrillation Chronic 07/17/2019 Hyperlipidemia 07/17/2019 Hypertension Essential Primary 07/17/2019 Lead Electrician (Current) Anticoagulant Treatment 07/17/2019 Diabetes Mellitus Type 2 With Diabetic Neuropathy Hyperglycemic (HCC) 07/18/2019 Diabetes Mellitus Type 2 With Diabetic Neuropathy Hyperglycemic (HCC) 07/18/2019 Atrial Fibrillation Chronic 07/18/2019 Lead Electrician (Current) Anticoagulant Treatment 07/18/2019 Monitoring For Therapeutic Drug Therapy 07/18/2019 Syncope 07/19/2019 Atrial Fibrillation Chronic 07/20/2019 Diabetes Mellitus Type 2 With Diabetic Neuropathy Hyperglycemic (HCC) 07/20/2019 High Risk Medication 07/23/2019 Diabetes Mellitus Type 2 Without Complication (HCC) 07/27/2019 Atrial Fibrillation Chronic 07/27/2019 Hyperlipidemia 07/27/2019 Diabetes Mellitus Type 2 With Diabetic Neuropathy Hyperglycemic (HCC) 07/27/2019 Syncope 08/13/2019 Hypertension Essential Primary 08/23/2019 Atrial Fibrillation Paroxysmal (HCC) 08/23/2019 Syncope 08/23/2019 High Risk Medication 08/23/2019 Hypertension Essential Primary 08/30/2019 Atrial Fibrillation Paroxysmal (HCC) 08/30/2019 Syncope 08/30/2019 Syncope 08/30/2019 Atrial Fibrillation Paroxysmal (HCC) 08/30/2019 Hyperlipidemia 08/30/2019 Hypertension Essential Primary 08/30/2019 Hypotension Orthostatic Autonomic Neurogenic 08/30/2019 Obstructive Sleep Apnea Adult 08/30/2019 Syncope 08/30/2019 Diabetes Mellitus Type 2 With Diabetic Neuropathy Hyperglycemic (HCC) 09/10/2019 Atrial Fibrillation Paroxysmal (HCC) 10/09/2019 Hyperlipidemia 10/09/2019 Hypertension Essential Primary 10/09/2019 Diabetes Mellitus Type 2 With Diabetic Neuropathy Hyperglycemic (HCC) 10/18/2019 Hypertension Essential Primary 10/18/2019 Atrial Fibrillation Paroxysmal (HCC) 10/18/2019 Tinea Corporis 10/18/2019 Hyperlipidemia 10/18/2019 Diabetes Mellitus Type 2 With Diabetic Neuropathy Hyperglycemic (HCC) 10/18/2019 Hypertension Essential Primary 10/18/2019 Diabetes Mellitus Type 2 With Diabetic Neuropathy Hyperglycemic (HCC) 01/21/2020 Diabetes Mellitus Type 2 With Diabetic Neuropathy Hyperglycemic (HCC) 02/01/2020 Screening Cancer Colon 02/01/2020 Hypertension Essential Primary 02/01/2020 Pain Low Back Unspecified 02/01/2020 Atrial Fibrillation Unspecified (HCC) 02/13/2020 Atrial Fibrillation Paroxysmal (HCC) 02/13/2020 Diabetes Mellitus Type 2 With Diabetic Neuropathy Hyperglycemic (HCC) 02/18/2020 Atrial Fibrillation Paroxysmal (HCC) 03/18/2020 Hyperlipidemia 03/18/2020 Hypertension Essential Primary 03/18/2020 Obstructive Sleep Apnea Adult 03/18/2020 Diabetes Mellitus Type 2 With Diabetic Neuropathy Hyperglycemic (HCC) 04/14/2020 Diabetes Mellitus Type 2 With Diabetic Neuropathy Hyperglycemic (HCC) 04/21/2020 Diabetes Mellitus Type 2 With Diabetic Neuropathy Hyperglycemic (HCC) 05/02/2020 Hypertension Essential Primary 05/02/2020 Diabetes Mellitus Type 2 With Diabetic Neuropathy Hyperglycemic (HCC) 05/05/2020 Obesity Body Mass Index 30-39.9 Adult 05/05/2020 Depression Major One Episode Moderate (HCC) 05/05/2020 Dysfunction Erectile 05/05/2020 Diabetes Mellitus Type 2 With Diabetic Neuropathy Hyperglycemic (HCC) 05/06/2020 Syncope 05/06/2020 Depression Major One Episode Moderate (HCC) 05/30/2020 Positive Cologuard Stool Deoxyribonucleic Acid Test 05/30/2020 Diabetes Mellitus Type 2 With Diabetic Neuropathy Hyperglycemic (HCC) 06/25/2020 Diabetes Mellitus Type 2 With Diabetic Neuropathy Hyperglycemic (HCC) 07/02/2020 Positive Cologuard Stool Deoxyribonucleic Acid Test 07/14/2020 Diabetes Mellitus Type 2 With Diabetic Neuropathy Hyperglycemic (HCC) 08/01/2020 Diabetes Mellitus Type 2 With Diabetic Neuropathy Hyperglycemic (HCC) 08/01/2020 Depression Major One Episode Moderate (HCC) 08/01/2020 Syncope 08/05/2020 Diabetes Mellitus Type 2 With Diabetic Neuropathy Hyperglycemic (HCC) 08/05/2020 Hypertension Essential Primary 08/05/2020 Diabetes Mellitus Type 2 With Diabetic Neuropathy Hyperglycemic (HCC) 08/06/2020 Diabetes Mellitus Type 2 With Diabetic Neuropathy Hyperglycemic (HCC) 08/06/2020 Depression Major One Episode Moderate (HCC) 08/10/2020 Depression Major One Episode Moderate (HCC) 08/20/2020 Syncope 09/26/2020 Syncope 10/23/2020 Syncope 10/23/2020 Diabetes Mellitus Type 2 With Diabetic Neuropathy Hyperglycemic (HCC) 11/04/2020 Diabetes Mellitus Type 2 With Diabetic Neuropathy Hyperglycemic (HCC) 11/06/2020 Hypertension And Chronic Kidney Disease Stage 2 11/06/2020 Atrial Fibrillation Paroxysmal (HCC) 11/06/2020 Depression Major One Episode Moderate (HCC) 11/06/2020 Diabetes Mellitus Type 2 With Diabetic Neuropathy Hyperglycemic (HCC) 11/13/2020 Diabetes Mellitus Type 2 With Diabetic Neuropathy Hyperglycemic (HCC) 11/14/2020 Diabetes Mellitus Type 2 With Diabetic Neuropathy Hyperglycemic (HCC) 11/18/2020 Diabetes Mellitus Type 2 With Diabetic Neuropathy Hyperglycemic (HCC) 11/24/2020 Urinary Tract Infection Site Not Specified 12/01/2020 Hematuria 12/01/2020 Depression Major One Episode Moderate (HCC) 12/05/2020 Hematuria 12/05/2020 Diabetes Mellitus Type 2 With Diabetic Neuropathy Hyperglycemic (HCC) 12/05/2020 Diabetes Mellitus Type 2 With Diabetic Neuropathy Hyperglycemic (HCC) 12/10/2020 Vomiting 12/20/2020 Hyperglycemia 12/20/2020 Syncope 12/22/2020 Syncope 12/26/2020 Diabetes Mellitus Type 2 With Diabetic Neuropathy Hyperglycemic (HCC) 02/06/2021 Depression Major One Episode Moderate (HCC) 02/06/2021 Diabetes Mellitus Type 2 With Diabetic Neuropathy Hyperglycemic (HCC) 02/06/2021 Hypertension And Chronic Kidney Disease Stage 2 02/06/2021 Diabetes Mellitus Type 2 With Diabetic Neuropathy Hyperglycemic (HCC) 03/09/2021 Syncope 03/18/2021 Atrial Fibrillation Paroxysmal (HCC) 04/02/2021 Monitoring For Therapeutic Drug Therapy 04/02/2021 Lead Electrician (Current) Anticoagulant Treatment 04/02/2021 Atrial Fibrillation Paroxysmal (HCC) 04/02/2021 Lead Electrician (Current) Anticoagulant Treatment 04/02/2021 Monitoring For Therapeutic Drug Therapy 04/02/2021 Atrial Fibrillation Paroxysmal (HCC) 04/02/2021 Lead Electrician (Current) Anticoagulant Treatment 04/02/2021 Monitoring For Therapeutic Drug Therapy 04/02/2021 Diabetes Mellitus Type 2 With Diabetic Neuropathy Hyperglycemic (HCC) 04/07/2021 Diabetes Mellitus Type 2 (HCC) 04/07/2021 Diabetes Mellitus Type 2 With Diabetic Neuropathy Hyperglycemic (HCC) 04/09/2021 Atrial Fibrillation Paroxysmal (HCC) 04/13/2021 Halfway (Current) Anticoagulant Treatment 04/13/2021 Monitoring For Therapeutic Drug Therapy 04/13/2021 Atrial Fibrillation Paroxysmal (HCC) 04/17/2021 Halfway (Current) Anticoagulant Treatment 04/17/2021 Monitoring For Therapeutic Drug Therapy 04/17/2021 Atrial Fibrillation Paroxysmal (HCC) 04/21/2021 Lead Electrician (Current) Anticoagulant Treatment 04/21/2021 Monitoring For Therapeutic Drug Therapy 04/21/2021 Atrial Fibrillation Paroxysmal (HCC) 04/28/2021 Hypotension Orthostatic Autonomic Neurogenic 04/28/2021 Syncope 04/28/2021 Atrial Fibrillation Paroxysmal (HCC) 04/29/2021 Lead Electrician (Current) Anticoagulant Treatment 04/29/2021 Monitoring For Therapeutic Drug Therapy 04/29/2021 Diabetes Mellitus Type 2 (HCC) 05/05/2021 Diabetes Mellitus Type 2 With Diabetic Neuropathy Hyperglycemic (HCC) 05/05/2021 Acute Abdomen 05/09/2021 Diabetes Mellitus Type 2 With Diabetic Neuropathy Hyperglycemic (HCC) 05/20/2021 Diabetes Mellitus Type 2 With Diabetic Neuropathy Hyperglycemic (HCC) 07/23/2021 Diabetes Mellitus Type 2 With Diabetic Neuropathy Hyperglycemic (HCC) 08/20/2021 Diabetes Mellitus Type 2 With Diabetic Neuropathy Hyperglycemic (HCC) 08/27/2021 Diabetes Mellitus Type 2 With Diabetic Neuropathy Hyperglycemic (HCC) 09/10/2021 Obstructive Sleep Apnea Adult 09/10/2021 Hypertension And Chronic Kidney Disease Stage 2 09/10/2021 Depression Major One Episode Moderate (HCC) 09/10/2021 Anxiety Generalized Disorder 09/10/2021 Screening Cancer Colon 09/10/2021 Contusion Face Initial 11/10/2021 Diabetes Mellitus Type 2 With Diabetic Neuropathy Hyperglycemic (HCC) 12/09/2021 Diabetes Mellitus Type 2 With Diabetic Neuropathy Hyperglycemic (HCC) 12/11/2021 Hypertension And Chronic Kidney Disease Stage 2 12/11/2021 Problem Related To Housing And Economic Circumstances Unspecified 12/11/2021 Injury Shoulder Subsequent Right 12/11/2021 Screening Cancer Colon 12/11/2021 Diabetes Mellitus Type 2 With Diabetic Neuropathy Hyperglycemic (HCC) 03/12/2022 Hypertension And Chronic Kidney Disease Stage 2 03/12/2022 Pain Shoulder Right 03/15/2022 Diabetes Mellitus Type 2 With Diabetic Neuropathy Hyperglycemic (HCC) 03/15/2022 Pain Shoulder Right 03/15/2022 Depression Major One Episode Moderate (HCC) 03/15/2022 Atrial Fibrillation Paroxysmal (HCC) 03/15/2022 Hypertension And Chronic Kidney Disease Stage 2 03/15/2022 Cough Unspecified Type 03/15/2022 Pain Shoulder Right 03/24/2022 Diabetes Mellitus Type 2 With Diabetic Neuropathy Hyperglycemic (HCC) 04/02/2022 Pain Shoulder Right 04/12/2022 Injury Shoulder Subsequent Right 05/05/2022 Pain Shoulder Right 05/05/2022 Screening Cancer Colon 05/26/2022 Infection Upper Respiratory Viral 06/03/2022 Chronic Cough 06/03/2022 Diabetes Mellitus Type 2 With Diabetic Neuropathy Hyperglycemic (HCC) 06/03/2022 Thickened Toenail 06/03/2022 Diabetes Mellitus Type 2 With Diabetic Neuropathy Hyperglycemic (HCC) 06/04/2022 Diabetes Mellitus Type 2 With Diabetic Neuropathy Hyperglycemic (HCC) 06/21/2022 Diabetes Mellitus Type 2 With Diabetic Neuropathy Hyperglycemic (HCC) 06/24/2022 Hypertension And Chronic Kidney Disease Stage 2 06/24/2022 Hyperlipidemia 06/24/2022 Atrial Fibrillation Paroxysmal (HCC) 06/24/2022 Obstructive Sleep Apnea Adult 06/24/2022 Pain Shoulder Right 06/24/2022 Pain Shoulder Right 07/05/2022 Radiculopathy Lumbar 07/05/2022 Radiculopathy Cervical 07/05/2022 Tendinitis Rotator Cuff 07/05/2022 Syncope 07/06/2022 Syncope 07/06/2022 Atrial Fibrillation Paroxysmal (HCC) 07/06/2022 Atrial Fibrillation Other Persistent (HCC) 07/06/2022 Diabetes Mellitus Type 2 With Diabetic Neuropathy Hyperglycemic (HCC) 07/13/2022 Pain Shoulder Right 07/21/2022 Radiculopathy Cervical 07/21/2022 Radiculopathy Lumbar 07/21/2022 Spondylosis Lumbar Without Myelopathy 07/22/2022 Pain Shoulder Right 07/28/2022 Pain Shoulder Right 08/12/2022 Arthritis Shoulder 08/12/2022 Diabetes Mellitus Type 2 With Diabetic Neuropathy Hyperglycemic (HCC) 09/08/2022 Atrial Fibrillation Other Persistent (HCC) 09/15/2022 Thickened Toenail 10/11/2022 Diabetes Mellitus Type 2 With Diabetic Neuropathy Hyperglycemic (HCC) 10/11/2022 Syncope 10/18/2022 Atrial Fibrillation Paroxysmal (HCC) 10/19/2022 Obstructive Sleep Apnea Adult 10/19/2022 Syncope 11/26/2022 Hyperlipidemia 12/17/2022 Diabetes Mellitus Type 2 With Diabetic Neuropathy Hyperglycemic (HCC) 12/17/2022 Hypertension And Chronic Kidney Disease Stage 2 12/17/2022 Diabetes Mellitus Type 2 With Diabetic Neuropathy Hyperglycemic (HCC) 12/21/2022 Hypertension And Chronic Kidney Disease Stage 2 12/21/2022 Hyperlipidemia 12/21/2022 Atrial Fibrillation Paroxysmal (HCC) 02/02/2023 Hypotension Orthostatic Autonomic Neurogenic 02/02/2023 Syncope 02/02/2023 Diabetes Mellitus Type 2 With Diabetic Neuropathy (HCC) 04/11/2023 Thickened Toenail 04/11/2023 Callus [place] Foot 04/11/2023 Diabetes Mellitus Type 2 With Diabetic Neuropathy (HCC) 04/26/2023 Hypertension And Chronic Kidney Disease Stage 2 04/26/2023 Diabetes Mellitus Type 2 With Diabetic Neuropathy (HCC) 06/28/2023 Hypertension And Chronic Kidney Disease Stage 2 06/28/2023 Hyperlipidemia 06/28/2023 Atrial Fibrillation Paroxysmal (HCC) 06/28/2023 Depression Major One Episode Moderate (HCC) 06/28/2023 Obstructive Sleep Apnea Adult 06/28/2023 Screening Cancer Colon 06/28/2023 Diabetes Mellitus Type 2 With Diabetic Neuropathy (HCC) 07/19/2023 Thickened Toenail 07/19/2023 Callus [place] Foot 07/19/2023 Hypertension And Chronic Kidney Disease Stage 2 09/01/2023 Diabetes Mellitus Type 2 With Diabetic Neuropathy (HCC) 10/30/2023 Diabetes Mellitus Type 2 With Diabetic Neuropathy (HCC) 11/29/2023 Atrial Fibrillation Paroxysmal (HCC) 05/07/2024 Diabetes Mellitus Type 2 With Diabetic Neuropathy (HCC) 05/07/2024 Diabetes Mellitus Type 2 With Diabetic Neuropathy (HCC) 05/30/2024 Diabetes Mellitus Type 2 With Diabetic Neuropathy (HCC) 09/06/2024 Atrial Fibrillation Chronic 07/03/2019 Syncope 07/03/2019 Diabetes Mellitus Type 2 Without Complication (HCC) 07/03/2019 Hypotension Orthostatic Autonomic Neurogenic 07/03/2019 Atrial Fibrillation Paroxysmal (HCC) 07/03/2019 Hyperlipidemia 07/03/2019 Lead Electrician (Current) Anticoagulant Treatment 07/03/2019 Noncompliance With Treatment 07/03/2019 Positive Cologuard Stool Deoxyribonucleic Acid Test 07/14/2020 Screening Cancer Colon 05/26/2022 Care Teams Campus Receptionist Relationship Specialty Start Date End Date None Reported, Pcp PCP - General 01/13/24
--- OUTSIDE RECORDS SUMMARY | 2024-11-12 15:08 | XMS_ITS | Clinical Summary ---
Author Organization [facility] Address [address], [place] [address] Care Team Providers Care Improvement Coordinator Name Role Phone Unavailable Primary Care Provider Unavailabl e Source Comments You are receiving this document as you are listed as the primary care provider,follow-up provider, or the patient has been referred to you for consultation.This is in compliance with the Medicare and[facility] EHR Incentive Program,which states Providers who transition their patient to another setting of careor provider of care or refers their patient to another provider of care shouldprovide summary care record for each transition of care or referral. [employer] Allergies No known active allergies Medications ELIQUIS 5 MG tablet Take 1 Tablet (5 mg) by mouth two times a day. 03/11/2024 Active atorvastatin (LIPITOR) 20 MG tablet Take 1 Tablet (20 mg) by mouth daily. 02/04/2024 Active metoprolol succinate (TOPROL XL) 50 MG 24 hour release tablet Take 1 Tablet (50 mg) by mouth two times a day. Active metFORMIN (GLUCOPHAGE) 1000 MG tablet Take 1 Tablet (1,000 mg) by mouth two times a day. 02/04/2024 Active losartan (COZAAR) 50 MG tablet Take 1 Tablet (50 mg) by mouth daily. 03/11/2024 Active glipiZIDE (GLUCOTROL) 10 MG tablet Take 1 Tablet (10 mg) by mouth two times a day. Active dilTIAZem CD (CARDIZEM CD) 360 MG 24 hour release capsule Take 1 Capsule (360 mg) by mouth daily. 03/11/2024 Active pioglitazone (ACTOS) 45 MG tablet Take 1 Tablet (45 mg) by mouth daily. Active traZODone (DESYREL) 150 MG tablet Take by mouth. 03/11/2024 Active benzonatate (TESSALON) 200 MG capsule Take 1 Capsule (200 mg) by mouth three times a day as needed for Cough. 20 Capsule 03/12/2024 Active Active Problems No known active problems Social History Tobacco Use Types Packs/Day Years Used Date Smoking Tobacco: Never Assessed Sex and Gender Information Value Date Recorded Sex Assigned at Not on file Legal Sex Male 8:55 AM WOODS SUPERINTENDENT Gender Identity Not on file Sexual Orientation Not on file Last Filed Vital Signs Vital Sign Reading Time Taken Comments Blood Pressure 142/86 03/12/2024 10:13 AM WOODS SUPERINTENDENT Pulse 73 03/12/2024 10:13 AM WOODS SUPERINTENDENT Temperature 36.7 C (98.1 F) 03/12/2024 10:13 AM WOODS SUPERINTENDENT Respiratory Rate 18 03/12/2024 10:13 AM WOODS SUPERINTENDENT Oxygen Saturation 98% 03/12/2024 10:13 AM WOODS SUPERINTENDENT Inhaled Oxygen Concentration - - Weight - - Height - - Body Mass Index - - Plan of Treatment Health Maintenance Due Date Last Done Comments Colon Cancer Screening Plan Due 1965 Hep C Screening (Preventive Services) 1965 PSA Screening Discussion 1965 HepB Vaccine (1) 1984 Cholesterol 2000 Pneumococcal Vaccine 50+ Yrs (1 of 1 - PCV) 2015 Zoster/Shingles Vaccine (1 o f 2) 2015 Medicare Annual Wellness Visit 03/07/2024 DTaP/Tdap/Td Vaccine (2 - Tdap) 05/17/2024 05/17/2014 COVID-19 Vaccine (3 - 2024-2 6 season) 2024 07/23/2020, 06/23/2020 Influenza Vaccine (#1) 2024 HIV Screening (Preventive Services) Completed 10/04/2014 HepA Vaccine Aged Out No longer eligi ble based on patient's age to complete this topic Hib Vaccine Aged Out No longer eligi ble based on patient's age to complete this topic IPV (Polio) Vaccine Aged Out No longe r eligible based on patient's age to complete this topic MCV4 Vaccine Aged Out No longer eligi ble based on patient's age to complete this topic Meningococcal B Vaccine Aged Out No l onger eligible based on patient's age to complete this topic Insurance * Guarantor: Parish Amato Account Type Relation to Patient Date of Phone Billing Address Personal/Family Self 1965 [address] [facility] [address] [place] [address] AETNA MEDICARE REPLACEMENT
--- OUTSIDE RECORDS SUMMARY | 2024-11-12 15:08 | XMS_ITS | Clinical Summary ---
Author Organization [employer] Address [address] [place] [id number] Care Team Providers Care Controls Engineer Name Role Phone Albertina Myrick MD Primary Care Provider Allergies No known active allergies Medications acetaminophen (TYLENOL EXTRA STRGTH) 500 mg tablet Take 500 mg by mouth every 6 hours if needed. Max acetaminophen dose: 4000mg in 24 hrs. Active ketoconazole 2% shampoo (NIZORAL) 2 % shampooIndicatio ns:Seborrheic dermatitis of scalp Shampoo the hair thoroughly each day for 3 days. 120 mL 04/26/19 Active blood sugar diagnostic (BLOOD GLUCOSE TEST) stripIndications :Type 2 diabetes mellitus without complication, without long-term current use of insulin (HC) Test 2 times per day. Diagnosis: diabetes melliltus type II, uncontrolled, high a1c 200 Strip 3 05/24/19 Active lancetsIndicatio ns:Type 2 diabetes mellitus without complication, without long-term current use of insulin (HC) As directed. Test 2 times per day. 200 Each 3 05/24/19 Active blood-glucose meterIndications :Type 2 diabetes mellitus without complication, without long-term current use of insulin (HC) Dispense meter, test strips, lancets covered by pt ins. E11.65 NIDDM type II, uncontrolled - Test 2 times/day. Reason: High A1C 1 Device 05/24/19 Active ONE TOUCH DELICA 33 gauge misc 1 Stick by Injection route 2 times daily. 3 05/24/19 Active DULoxetine (CYMBALTA) 60 mg Delayed-release capsuleIndicatio ns:Mood disorder,General ized anxiety disorder,Back pain at L4-L5 level Take 2 capsules by mouth once daily. DO NOT OPEN. MUST BE SWALLOWED WHOLE. 180 capsule 3 04/05/19 20 Active simvastatin (ZOCOR) 40 mg tabletIndication s:Hyperlipidemia with target LDL less than 100 Take 1 tablet by mouth at bedtime. 90 tablet 3 04/05/19 20 Active Insulin [place], Disposable, (ROOSE[place]ELT PEN NEEDLE) 32 gauge x 5/32Indications :diabetes mellitus As directed. For administering insulin at home. Indications: diabetes 300 Each 3 09/03/19 20 Active metFORMIN (GLUCOPHAGE) 1,000 mg tabletIndication s:Type 2 diabetes mellitus without complication, without long-term current use of insulin (HC) TAKE 1 TABLET BY MOUTH TWICE DAILY WITH MEALS 60 tablet 09/12/19 20 Active glipiZIDE (GLUCOTROL) 10 mg tabletIndication s:Type 2 diabetes mellitus without complication, without long-term current use of insulin (HC) Take 1 tablet by mouth 2 times daily before meals. 30 tablet 10/12/19 20 Active traZODone (DESYREL) 150 mg tabletIndication s:Insomnia, idiopathic TAKE 0.5 TABLETS (75 MG) BY MOUTH AT BEDTIME. 45 Tablet 3 05/08/19 25 Active benzonatate (TESSALON) 200 mg capsuleIndicatio ns:Subacute cough Take 1 Capsule (200 mg) by mouth 3 times daily if needed for Cough. 21 Capsule 05/08/19 25 Active Eliquis 5 mg tabletIndication s:Paroxysmal atrial fibrillation (HC) Take 1 Tablet (5 mg) by mouth two times daily. 180 Tablet 3 05/10/19 25 Active omeprazole 20 mg tabletIndication s:Persistent cough Take 1 Tablet (20 mg) by mouth once daily. 28 Tablet 05/11/19 25 Active lidocaine 5 % topical patchIndications :Back pain at L4-L5 level Apply on dry, clean, hairless skin. Apply 1 patch to painful area of skin for up to to 12 hours within 24 hour period. 30 Patch 11 06/02/19 25 Active cyclobenzaprine 10 mg tabletIndication s:Back pain at L4-L5 level Take 1 Tablet (10 mg) by mouth at bedtime if needed for Muscle Spasm. FOR MUSCLE SPASM 30 Tablet 5 06/02/19 25 Active metoprolol succinate 50 mg sustained-releas e tabletIndication s:Emma-Parkinso n-White (WPW) syndrome,Hyperte nsion,Paroxysmal A-fib (HC) Take 1 Tablet (50 mg) by mouth once daily. 90 Tablet 3 06/06/19 25 Active Novolog Mix 70-30 100 unit/mL (70-30) penIndications:T ype 2 diabetes mellitus without complication, without long-term current use of insulin (HC) Inject 6 units subcutaneous two times daily before meals. 06/13/19 25 Active empagliflozin 10 mg tabletIndication s:Type 2 diabetes mellitus without complication, without long-term current use of insulin (HC) Take 1 Tablet (10 mg) by mouth once daily. 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 Late for appt s often. 05/12/2015 Erectile dysfunction 05/12/2015 Back pain at L4-L5 level. 12/13/2014 Major depressive disorder, single episode, moder ate 12/13/2014 Pars defect of lumbar spine 07/23/2014 Fohss-Wscijkavk-Amhgi (WPW) syndrome 07/15/2014 Anticoagulation monitoring, INR range 2-3 (keep in 2.0-2.5 range) 05/20/2014 PFO (patent foramen ovale) 05/20/2014 Diabetes 05/17/2014 Hypertension 05/17/2014 Hyperlipidemia LDL goal < 100 05/17/2014 Encounters Date Type Department Care Team Description 09/06/2024 Refill [facility] [address] [place] [address] Albertina Myrick MD Refill Request (Albuterol Hfa) from Last 3 Months Immunizations Immunization Administration Dates Next Due COVID-19 vaccine (Moderna 100mcg/0.5mL) ZHANE MENDEZ 07/23/2020,06/23/2020 Hepatitis B (Adult) 11/25/2014,06/24/2014,2014 Influenza Virus, Unspecified 09/10/2021(Deferred : Patient Refused) Pneumococcal, Unspecified 09/10/2021(Deferred: P atient Refused) Tdap 05/17/2014 Zoster, Unspecified Formulation 09/10/2021(Defer red: Patient Refused) Family History Medical History Relation Name Comments Heart Disease Father Heart Disease Maternal Grandfather Heart Disease Maternal Grandmother Stroke Mother Other Sister fibromyalgia Anesthesia Problem No Family History Blood Disease No Family History Relation Name Status Comments Father Maternal Grandfather Maternal Grandmother Mother Sister Social History Tobacco Use Types Packs/Day Years Used Date Smoking Tobacco: Former Cigarettes Q uit: 07/05/2006 Smokeless Tobacco: Former Tobacco Cessation:Counseling Given: Yes Alcohol Use Standard Drinks/Week Comments Yes 1.7 (1 standard drink = 0.6 oz p ure alcohol) occasional PHQ-2 Answer Date Recorded PHQ-2 TOTAL SCORE 3 01/06/2024 Social Connections Answer Date Recorded Do you often feel lonely or isolated from those around you? 0 01/06/2024 Financial Resource Strain Answer Date R ecorded Difficulty of Paying Living Expenses 2 01/06/2024 Difficulty of Paying Living Expenses 1 01/06/2024 Food Insecurity Answer Date Recorded Do you worry your food will run out before you are able to buy more? 2 01/06/2024 Transportation Needs Answer Date Record ed Does lack of transportation keep you from medica l appointments? 1 01/06/2024 Does lack of transportation keep you from work, meetings or getting things that you need? 1 01/06/2024 Housing Stability Answer Date Recorded What is your housing situation today? 1 01/06/2024 Utilities Answer Date Recorded Do you have trouble paying f or utilities (for example, heat, electricity, water, phone)? 1 01/06/2024 Sex and Gender Information Value Date Recorded Sex Assigned at Not on file Legal Sex Male 2:35 PM BASE REMOVER Gender Identity Not on file Sexual Orientation Not on file Obstetrics History Last Filed Vital Signs Vital Sign Reading Time Taken Comments Blood Pressure 144/92 06/01/2024 3:46 PM CDT Pulse 84 06/01/2024 3:46 PM CDT Temperature 36.3 C (97.4 F) 01/30/2018 10:32 AM BASE REMOVER Respiratory Rate 16 05/04/2017 2:15 PM BASE REMOVER Oxygen Saturation 96% 06/01/2024 3:46 PM CDT Inhaled Oxygen Concentration - - Weight 112 kg (247 lb) 06/01/2024 3:46 PM CDT Height 190.5 cm (6' 3) 01/06/2024 2:51 PM CDT Body Mass Index 30.87 01/06/2024 2:51 PM CDT Plan of Treatment Upcoming Encounters Date Type Department Care Team (Late st Contact Info) Description 01/16/2025 3:00 PM BASE REMOVER Office Visit [facility] [address] [place], [place] [phone] [place] Melina Ramirez [address] [place], [place] [phone] Health Maintenance Due Date Last Done Comments Pneumococcal series for age 50+ (1 of 2 - PCV) 1984 Zoster (shingles) series for age 50+ (1 of 2) 2015 Fecal testing non-DNA (FIT,FOBT,iFOBT) for age 45-75 07/06/2018 07/06/2017, 03/14/2016 Lipids for age 45-75 01/02/2024 01/01/2019, 07/24/2018, 10/14/2017, Additional history exists Tetanus booster 05/17/2024 05/17/2014 COVID-19 vaccine series ( season) 2024 07/23/2020, 06/23/2020 Influenza Vaccine (#1) 2024 BMI (ht and wt on same day) for age 18+ 01/05/2025 01/06/2024, 04/05/2019, 01/22/2019, Additional history exists Depression screening for age 12+ 01/12/2025 01/13/2024, 01/06/2024, 06/05/2019, Additional history exists RSV vaccine for adults or (1 - 1-dose 75+ series) 2040 HIV for age 15-65 Completed 10/04/2014 Hepatitis C screening for ag e 18-79 Completed 10/04/2014 Hepatitis B series for 19+ Completed 11/25, 06/24/2014, 05/17/2014 Goals Goal Patient Goal Type Associated Problems Recent Progress Patient-Stated? Author BLOOD PRESSURE - MAINTAINS BP less than 140/90 Blood Pressure No Tracey Oneill MD BLOOD PRESSURE-MAINTA INS BP LESS THAN 130/80 Blood Pressure No Celeste Olvera Procedures Procedure Name Priority Date/Time Associated Diagnosis Comments LIPID PANEL W REFLEX MEASURED LDL Routine 01/01/2019 12:29 PM CDT Type 2 diabetes mellitus without complication, without long-term current use of insulin (HC) OCCULT BLOOD IFOBT STOOL Routine 07/06/2017 3:56 PM CDT Screening for colorectal cancer ANTI HIV 1/2 Routine 10/04/2014 2:10 PM CDT Trichomonas exposure ANTI HCV Routine 10/04/2014 2:10 PM CDT Trichomonas exposure from Last 3 Months or Most Recently Relevant to Health Maintenance Results * (ABNORMAL) LIPID PANEL W REFLEX MEASURED LDL (01/01/2019 12:29 PM CDT) CHOLESTEROL,TOTAL 270(H) 100 - 199 mg/dL 01/01/2019 12:57 PM CDT [facility] TRIGLYCERIDES 297(H) <150 mg/dL 01/01/2019 12:57 PM CDT [facility] HDL CHOLESTEROL 43 >40 mg/dL 9 12:57 PM CDT [facility] NON-HDL CHOLESTEROL 227(H) <145 mg/dl 01/01/2019 12:57 PM CDT [facility] CHOL/HDL RATIO 6.28(H) <4.50 01/01/2019 12:57 PM CDT [facility] LDL CHOLESTEROL 168(H) <=130 mg/dL 01/01/2019 12:57 PM CDT [facility] PROVIDER ORDERED STATUS RANDOM 01/01/2019 12:57 PM CDT [facility] Blood BLOOD SPECIMEN / Unknown Venipuncture / Unknown 01/01/2019 12:29 PM CDT 01/01/2019 12:32 PM CDT us Karolina Dubose DO CHEMISTRY Final Result [facility] [address] [place] [address] * OCCULT BLOOD IFOBT STOOL (07/06/2017 3:56 PM CDT) STOOL BLOOD ,IFOBT Negative Negative 07/08/2017 1:43 PM CDT [facility] Stool STOOL SPECIMEN / Unknown Non-Blood / Unknown 07/06/2017 3:56 PM CDT 07/06/2017 3:56 PM CDT us Karolina Dubose DO LABORATORY Final Result [facility] [address] [place] [address], [place] [phone] * ANTI HCV (10/04/2014 2:10 PM CDT) HEPATITIS C ANTIBODY Non-Reacti ve Non-Reacti ve 10/04/2014 8:59 PM CDT [facility] TRAL LABORATORY Blood specimen (specimen) BLOOD SPECIMEN / Unknown Venipuncture / Unknown 10/04/2014 2:10 PM CDT 10/04/2014 2:10 PM CDT Narrative [facility] - 10/04/2014 8:59 PM CDT Antibodies to HCV not detected; does not exclude the possibility of exposure to HCV. us Tracey Oneill MD SEND OUTS Katerine l Result [facility] [address] [place] [address], [place] * ANTI HIV 1/2 (10/04/2014 2:10 PM CDT) HIV-1/HIV-2 ANTIBODY Non-Reacti ve Non-Reacti ve 10/04/2014 8:44 PM CDT [facility] TRAL LABORATORY Blood specimen (specimen) BLOOD SPECIMEN / Unknown Venipuncture / Unknown 10/04/2014 2:10 PM CDT 10/04/2014 2:10 PM CDT Narrative [facility] - 10/04/2014 8:44 PM CDT HIV-1 p24 and HIV-1/HIV-2 Ab not detected Tracey Oneill MD SEND OUTS Katerine l Result Performing Organization Address City/[facility]/ZIP Co de Phone Number [facility] [address] [place] [address], from Last 3 Months or Most Recently Relevant to Health Maintenance Insurance MEDICARE PART B HB ONLY MEDICARE PART A HB ONLY [email or web address] AETNA MR Advance Directives * DNR (Latest Code Status on File) Date Activated Date Inactivated Comments 04/19/2017 3:53 PM 04/19/2017 3:54 PM Question Answer Comments Code Status Discussion: Per Existing Order Care Teams Controls Engineer Relationship Specialty [place] [address] [place] [address] PCP - General Family Practice 03/20/24
== END 2024-11-12 15:31 | disposition home or self-care (01) ==
PROVIDERS: Emergency Provider Emergency Medicine Emergency Medical Services; PCP Physician Assistant Medical
DX: S06.0X0A Concussion without loss of consciousness, initial encounter (principal); R11.0 Nausea; G47.00 Insomnia, unspecified; Y35.91XA Legal intervention, means unspecified, law enforcement official injured, initial encounter
CPT/HCPCS: 99283; 99284

== ENCOUNTER 2024-11-19 16:18 | Outpatient (CLI) | payer MEDICARE, SELFPAY ==
--- NOTE | 2024-11-19 16:45 | CRLHL7_ITS ---
For Patients: As a result of the Century Cures Act, medical imaging exams and procedure reports are released immediately into your electronic medical record. You may view this report before your referring provider. If you have questions, please contact your health care provider. INDICATION: Postconcussion syndrome TECHNIQUE: Noncontrast axial CT of the head is submitted. COMPARISON: No comparisons. FINDINGS: Mild cerebral atrophy. Chronic encephalomalacia and gliosis involving the anterior and posterior lateral right frontal lobe, posterolateral right temporal lobe. The remainder of the ventricles, sulci and gyri are of normal size, shape and contour for age and degree of atrophy. Midline structures are centrally located. No convincing evidence of suspicious intra- or extra-axial fluid collections. 1 cm partially peripherally calcified lesion within the subcutaneous soft tissue overlying the apical calvarium likely representing an incidental sebaceous cyst. IMPRESSION: 1. No radiographic evidence of acute intracranial abnormalities. 2. Mild cerebral atrophy. 3. Chronic encephalomalacia and gliosis involving the anterior and posterior lateral right frontal lobe, posterolateral right temporal lobe that may represent residua from distant ischemic or posttraumatic insult. Please note that all CT scans at this facility use dose modulation, iterative reconstruction, and/or weight-based dosing when appropriate to reduce radiation dose to as low as reasonably achievable. Dictated by Noah Villarreal MD @ 11/21/2024 8:23:31 AM (Electronically Signed)
== END 2024-11-19 16:19 | disposition home or self-care (01) ==
PROVIDERS: PCP Physician Assistant Medical; Visit Provider Physician Assistant Medical
DX: R51.9 Headache, unspecified (principal); G31.9 Degenerative disease of nervous system, unspecified; G93.89 Other specified disorders of brain; F07.81 Postconcussional syndrome; S09.90XA Unspecified injury of head, initial encounter
CPT/HCPCS: 70450

== ENCOUNTER 2024-12-31 15:15 | Inpatient (IN) | payer MEDICARE, SELFPAY ==
[2024-12-31 15:36] VITALS: BP 160/99; PULSE 96; RESP 18; TEMP 36.3; O2SAT 97; BMI 29.0
--- NOTE | 2024-12-31 15:48 | CRLHL7_ITS ---
For Patients: As a result of the Century Cures Act, medical imaging exams and procedure reports are released immediately into your electronic medical record. You may view this report before your referring provider. If you have questions, please contact your health care provider. Indication: Fall Technique: Volumetric multidetector CT images of the head were obtained without the administration of low osmolar intravenous contrast. Comparison: CT head November 19, 2024 Findings: There is no intra-axial or extra-axial fluid collection. There is no mass effect or midline shift. Stable global cortical atrophy with mild sulcal widening and ex vacuo dilatation of the right greater than left lateral ventricles. Stable encephalomalacia of the right frontal lobe and temporal lobes with associated leukomalacia. Mild chronic small vessel disease change of the subcortical and periventricular white matter is appreciated. The remaining brain parenchyma is preserved in attenuation and hair-white differentiation. The orbits and their contents are grossly within normal limits. The bony calvarium is grossly intact. The paranasal sinuses are clear. The mastoid air cells are well aerated. Impression: Stable remote ischemic and chronic small-vessel disease changes of the brain without acute intracranial abnormality. Please note that all CT scans at this facility use dose modulation, iterative reconstruction, and/or weight-based dosing when appropriate to reduce radiation dose to as low as reasonably achievable. Dictated by Harshad Lobo MD @ 12/31/2024 4:20:46 PM (Electronically Signed)
--- NOTE | 2024-12-31 15:54 | CRLHL7_ITS ---
For Patients: As a result of the Century Cures Act, medical imaging exams and procedure reports are released immediately into your electronic medical record. You may view this report before your referring provider. If you have questions, please contact your health care provider. INDICATION: Leg weakness. Behavior changes. COMPARISON: CT from earlier today. TECHNIQUE: Multiplanar T1, T2, FLAIR and diffusion-weighted imaging. FINDINGS: Moderate generalized volume loss. 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 Ex vacuo dilatation of the right lateral ventricle. Small patchy focal area of T2/FLAIR signal hyperintensity within the subcortical white matter of the posterior right frontal lobe at the vertex with corresponding restricted diffusion (series 4, image 37; series 5, image 47) consistent with a recent, likely subacute infarct. No restricted diffusion elsewhere within the brain parenchyma. No midline shift. Compensatory mild dilatation ventricular system. Intracranial vascular flow voids are preserved. No mass effect or midline shift. No susceptibility artifact of remote hemorrhage. Bilateral orbits are unremarkable. Normal appearing sella. Visualized paranasal sinuses unremarkable. Small bilateral mastoid effusions. IMPRESSION: 1. Small subacute infarct within the subcortical white matter of the posterior right frontal lobe at the vertex. 2. No other areas restricted diffusion. 3. No acute or chronic intracranial hemorrhage 4. Moderate generalized cerebral volume loss. 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 Dictated by Glenn Olmos MD @ 12/31/2024 7:10:07 PM (Electronically Signed)
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
[2024-12-31 19:57] VITALS: BP 162/125; PULSE 92; RESP 18; O2SAT 94
[2024-12-31 20:04] LABS: Glucose, Point-of-Care* 308 mg/dl (60-115)
[2024-12-31 20:42] LABS: Hematocrit* 48.3 % (37.0-53.0); Hemoglobin* 16.9 gm/dL (13.5-17.5); Immature Granulocytes Abs Auto 0.01 K/uL (0.00-0.30); Immature Granulocytes Pct Auto 0.1 %; Lymphocytes Absolute Auto 1.40 K/uL (0.90-2.90); Mean Corpuscular HGB Conc 35 gm/dL (32-36); Mean Corpuscular Hemoglobin 32 pg (26-34); Mean Corpuscular Volume 92 fL (80-100); RDW Coefficient of Variation % 12.0 % (11.5-15.5); Red Blood Count* 5.28 m/uL (4.30-5.90); White Blood Count* 6.92 K/uL (4.50-11.00)
[2024-12-31 20:43] LABS: Slide Review Reflex No
[2024-12-31] MEDS: INSULIN PROT/ASP (NOVOLOG 70/30) 100 UNIT/ML 30 UNIT SUBCUT (20:50)
[2024-12-31 20:54] LABS: Chloride* 95 mmol/L (96-114)
[2024-12-31 20:55] LABS: Albumin* 4.2 g/dL (3.3-5.0); Potassium* 3.4 mmol/L (3.6-5.1)
[2024-12-31 20:57] LABS: Blood Urea Nitrogen* 14 mg/dL (7-30); Carbon Dioxide* 29 mmol/L (20-32); Creatinine* 0.9 mg/dL (0.5-1.5); Est. Creatinine Clearance* 108.50; Estimated Glomerular Filt Rate 98 ml/min
[2024-12-31 20:58] LABS: Alanine Aminotransferase* 25 U/L (4-50); Alkaline Phosphatase* 119 U/L (40-150); Aspartate Amino Transferase* 20 U/L (12-35); Bilirubin Total* 0.6 mg/dL (0.1-1.5); Calcium* 9.5 mg/dL (8.4-10.6); Glucose* 282 mg/dL (60-115); Total Protein* 7.0 g/dL (6.0-8.3)
[2024-12-31 21:26] LABS: Anion Gap 12 mEq/L (7-15); Sodium* 136 mmol/L (135-149)
--- NOTE | 2024-12-31 21:34 | PM.IMHP1 ---
Assessment and Plan Assessment and plan (1) Stroke: Problem comment: - posterior R frontal lobe, subacute - continue home medications (no permissive HTN given timeline), stroke Neurology f/u 01/01 - therapies ordered to assess functionality and goals of care/rehab needs Status: Acute (2) Syncope: Problem comment: - presumably 2/2 CVA, ddx includes arrythmia or vasovagal reaction - has loop recorder implanted (has had for years, battery has ) - remains in rate controlled a fib - follow on telemetry, morning orthostatic VS Status: Acute (3) Type 2 diabetes mellitus: Problem comment: - IDDM2, A1C 09/2024 13.1, will recheck - 10/29; added Mounjaro to regimen Status: Acute (4) Atrial fibrillation: Problem comment: - rate controlled on Metoprolol and Diltiazem Status: Acute (5) Chronic pain: Problem comment: - on Lyrica (recently increased to 100mg BID), Flexeril, prn Oxycodone, Lidocaine patch Status: Acute (6) Hyperlipidemia: Problem comment: - on atorvastatin Status: Acute (7) Chronic anticoagulation: Problem comment: - Eliquis for a fib Status: Acute Plan - inpatient status with 2 MN stay expected given new CVA and need for therapies, stroke Neurology f/u, DM management Hospitalist- H&P: HPI History of Present Illness Date Seen: 12/31/24 Chief complaint: Dizziness, confusion Narrative: Parish Amato is a 59 year old male with a history of CVA in 2006, a fib, insulin dependent DM2 who presented to the ER at the behest of his PCP at the [facility] for confusion, dizziness, and a syncopal episode. He had been feeling poorly for a few weeks, has been seeing PCP regularly in followup. Had an MRI ordered as an outpatient on 12/17/24, was unable to schedule. Had a syncopal episode 12/20/24 while on the toilet, then was very fatigued for a few days. Per PCP's note, partner has noted that Parish seems to have some cognitive impairment, in addition to clumsiness of his LLE. Bubba tells me that his L leg feels clumsy and he's terrified of stairs. He has had some legal trouble recently, which has been stressful. ER Course and Findings: - rate controlled atrial fibrillation on EKG (known, also history of WPW) - MRI revealed small subacute infarct in subcortical white matter of posterior R frontal lobe - Dr. Cormier of Stroke Neurology consulted, will follow patient during stay Patient admitted given CVA; needs PT and OT evaluations and f/u with stroke neurology. Review of Systems Status of ROS: Reports: 10 or more systems reviewed and unremarkable except as noted in History and below Medical Decision Making Medical Decision Making Code Status: Patient is unsure; wants to discuss further with Yanely Has patient completed a Health Care Directive: No During This Stay, Who Would You Like To Make Decisions For You In The Event You Are Unable To Make Them For Yourself?: Gaby Ny (retired nurse) [facility] Medical History (Updated 12/31/24 @ 23:09 by Celeste Olvera MD) Type 2 diabetes mellitus ?E11.9 - Type 2 diabetes mellitus without complications (ICD-10) CVA (cerebral vascular accident) ?I63.9 - Cerebral infarction, unspecified (ICD-10) Atrial fibrillation ?I48.91 - Unspecified atrial fibrillation (ICD-10) Chronic anticoagulation ?Z79.01 - buttermaker continuous churn (current) use of anticoagulants (ICD-10) PFO (patent foramen ovale) ?Q21.12 - Patent foramen ovale (ICD-10) Lumbar back pain ?M54.50 - Low back pain, unspecified (ICD-10) Hyperlipidemia ?E78.5 - Hyperlipidemia, unspecified (ICD-10) Hypertension ?I10 - Essential (primary) hypertension (ICD-10) WPW (Adixc-Gqtshurrl-Ilrxd syndrome) ?I45.6 - Pre-excitation syndrome (ICD-10) Surgical History History of cardiac radiofrequency ablation (RFA) ?Z98.890 - Other specified postprocedural states (ICD-10) Family History Father Diabetes Eye cancer Mother Diabetes Sister Cancer Social History (Updated 12/31/24 @ 22:58 by Celeste Olvera MD) Narrative: Gaby Fox would be medical decision maker if needed. No children. Smoking cigarettes (3-4/day), marijuana occasionally, no concerning ETOH use What is your current living situation?: I presently have a place to live Problems where you live: no known problems Problems where you live details: n/a In the past 12 months, utilities in danger of being shut off: no In past 12 months, lack of transportation kept you from medical appts, meetings, work, or getting things needed for daily living: no In the past 12 mos, have been you worried that your food would run out before you had money to buy more?: often true In the past 12 mos, the food you bought just didn't last and you didn't have money to buy more?: sometimes true Highest level of school completed/degree received: Bachelor's degree Smoking Status: Current every day smoker What tobacco products do you use: cigarettes How often do you have a drink containing alcohol: never AUDIT-C Alcohol total score: 0 Non-prescribed substance use: marijuana (any form) Non-prescribed substance use details: pt states occasional THC gummy use Caffeine: Yes How often does anyone, including family, friends and others, physically hurt you: never How often does anyone, including family, friends and others, insult or talk down to you: never How often does anyone, including family, friends and others, threaten you with harm: never How often does anyone, including family, friends and others, scream or curse at you: never service: No Health Related Social Needs: food insecurity (Z59.41) Meds Home Medications and Allergies Home Medications ?Medication ?Instructions ?Recorded ?Confirmed ?Type apixaban 5 mg tablet (Eliquis) 5 mg PO BID 03/30/24 12/31/24 History cyclobenzaprine 10 mg tablet 10 mg PO QPM PRN muscle spasm 03/30/24 12/31/24 History trazodone 150 mg tablet 75 mg PO QPM 03/30/24 12/31/24 History metformin 1,000 mg tablet 1,000 mg PO BID #360 tabs 08/16/24 12/31/24 Rx metoprolol succinate 50 mg 50 mg PO BID 08/16/24 12/31/24 History tablet,extended release 24 hr blood-glucose,linotyper,cont #1 ea 08/17/24 12/31/24 Rx (Dexcom [employer]) diltiazem HCl 360 mg 360 mg PO DAILY #90 caps 09/13/24 12/31/24 Rx capsule,extended release 24 hr glipizide 10 mg tablet 10 mg PO BID #180 tabs 09/13/24 12/31/24 Rx pioglitazone 45 mg tablet 45 mg PO DAILY #90 tabs 09/13/24 12/31/24 Rx atorvastatin 40 mg tablet 40 mg PO QDAY #90 tabs 09/20/24 12/31/24 Rx pen needle, diabetic 29 gauge x #100 ea 09/20/24 12/31/24 Rx 1/2 (Ultra-Thin II Insulin Pen Roosevelt) lidocaine 5 % topical patch 1 patch topical QDAY #90 ea 10/18/24 12/31/24 Rx lorazepam 0.5 mg tablet (Ativan) 0.5 mg PO BID PRN #10 tabs 11/12/24 12/31/24 Rx blood-glucose sensor (Dexcom G7 #9 ea 11/29/24 12/31/24 Rx Sensor device) insulin NPH-regular 70-30 U-100 30 unit (0.3 mL) subcut BID #15 mL 11/29/24 12/31/24 Rx insulin 100 unit/mL subcutaneous pen (Novolin 70-30 FlexPen U-100 Insulin) oxycodone 5 mg tablet 5 mg PO Q6H PRN pain #12 tabs 11/29/24 12/31/24 Rx pregabalin 100 mg capsule 100 mg PO BID #180 caps 12/17/24 12/31/24 Rx tirzepatide 5 mg/0.5 mL 5 mg (0.5 mL) subcut QWEEK #2 mL 12/17/24 12/31/24 Rx subcutaneous pen injector (Isaías) losartan 50 mg tablet 50 mg PO DAILY #90 tabs 12/28/24 12/31/24 Rx Allergies Allergy/AdvReac Type Severity Reaction Status Date / Time No Known Drug Allergies Allergy Verified 12/31/24 13:32 Exam Narrative: Exam Narrative: GEN: Alert and oriented answering questions appropriately HEENT: No facial droop, EOMIs bilaterally, no scleral icterus CV: Atrial fibrillation, rate in the 70s during my exam R: LCTA bilaterally Ext: wwp, no concerning edema Skin: No concerning skin lesions or rashes on exposed skin Neuro: Symmetrically poor DTRs at patella, no resting tremor, able to flex BLE at ankles, knee, hip. Mild weakness of LLE noted. 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 musculature of hands Psych: Intermittently perseverative, redirectable Const: Vital Signs, click to edit/add: Vital Signs - 24 hr 12/31/24 15:36 12/31/24 19:57 Temperature 97.4 F L Pulse Rate [Right Pulse Oximeter] 96 92 Respiratory Rate 18 18 Blood Pressure [Ri ght Upper Arm] 160/99 H 162/125 H Pulse Oximetry 97 94 Oxygen Delivery Me thod Room Air Room Air Hospitalist - H&P: Result Labs Labs: Short CBC 12/31/24 Range/Units 20:35 WBC 6.92 (4.50-11.00) K/uL Hgb 16.9 (13.5-17.5) gm/dL Hct 48.3 (37.0-53.0) % Plt Count 268 (140-440) K/uL BMP 12/31/24 20:35 Sodium 136 Potassium 3.4 L Chloride 95 L Carbon Dioxide 29 BUN 14 Creatinine 0.9 Glucose 282 H Calcium 9.5 Liver Function 12/31/24 Range/Units 20:35 Total Bilirubin 0.6 (0.1-1.5) mg/dL AST 20 (12-35) U/L ALT 25 (4-50) U/L Alkaline Phosphatase 119 (40-150) U/L Albumin 4.2 (3.3-5.0) g/dL
[2024-12-31 21:39] VITALS: BP 162/102; PULSE 66; RESP 16; RESP 18; TEMP 36.6; O2SAT 96
[2024-12-31 23:30] VITALS: BP 146/114; PULSE 71; RESP 18; TEMP 36.5; O2SAT 95
[2024-12-31] MEDS: APIXABAN 5 MG TABLET PO (23:41)
[2024-12-31] MEDS: TRAZODONE HCL 50 MG TABLET PO (23:41)
[2025-01-01] VITALS (11 sets, daily range): BP systolic 102–158; BP diastolic 62–125; PULSE 74–104; RESP 16–18; TEMP 36.4–36.8; O2SAT 95–97
[2025-01-01] MEDS: HYDRALAZINE HCL 20 MG/ML inj 10 MG IVP ×2 (05:01→10:34)
--- NOTE | 2025-01-01 06:31 | PC.NURSE ---
End of shift report: Pt was admitted to the floor at 2103. AxOx4. VSS. Denies N/V. Denies dizziness. Afebrile. Denies pain. Neuros are intact. AxOx4. Pt ambulates SBA and has a left crutch he utilizes. Tolerating a regular diet. Pt has been hypertensive with the diastolic reaching 125, MD salazar contacted and PRN hydralazine was given with relief. Bed alarm on, call light within reach.?
[2025-01-01 07:01] LABS: Hematocrit* 49.1 % (37.0-53.0); Hemoglobin* 16.9 gm/dL (13.5-17.5); Immature Granulocytes Abs Auto 0.01 K/uL (0.00-0.30); Immature Granulocytes Pct Auto 0.2 %; Lymphocytes Absolute Auto 2.16 K/uL (0.90-2.90); Mean Corpuscular HGB Conc 34 gm/dL (32-36); Mean Corpuscular Hemoglobin 32 pg (26-34); Mean Corpuscular Volume 92 fL (80-100); RDW Coefficient of Variation % 12.0 % (11.5-15.5); Red Blood Count* 5.36 m/uL (4.30-5.90); White Blood Count* 5.99 K/uL (4.50-11.00)
[2025-01-01 07:05] LABS: Slide Review Reflex No
[2025-01-01 07:15] LABS: Albumin* 4.2 g/dL (3.3-5.0); Chloride* 99 mmol/L (96-114); Sodium* 137 mmol/L (135-149)
[2025-01-01 07:18] LABS: Alanine Aminotransferase* 26 U/L (4-50); Alkaline Phosphatase* 112 U/L (40-150); Anion Gap 11 mEq/L (7-15); Aspartate Amino Transferase* 21 U/L (12-35); Bilirubin Total* 1.1 mg/dL (0.1-1.5); Blood Urea Nitrogen* 12 mg/dL (7-30); Carbon Dioxide* 27 mmol/L (20-32); Cholesterol* 172 mg/dL (90-199); Creatinine* 0.8 mg/dL (0.5-1.5); Est. Creatinine Clearance* 122.06; Estimated Glomerular Filt Rate 102 ml/min; Total Protein* 7.1 g/dL (6.0-8.3); Triglycerides* 181 mg/dL (40-149)
[2025-01-01 07:19] LABS: Calcium* 9.3 mg/dL (8.4-10.6); Glucose* 209 mg/dL (60-115); HDL Cholesterol* 40 mg/dL (>=40)
[2025-01-01 07:26] LABS: Potassium* 2.8 mmol/L (3.6-5.1)
[2025-01-01] MEDS: INSULIN ASPART 100 UNIT/ML SUBCUT ×3 (07:37→20:50)
[2025-01-01] MEDS: METFORMIN 1,000 MG TABLET 1000 MG PO ×2 (07:46→18:17)
[2025-01-01] MEDS: POTASSIUM BICARB 25 MEQ EFFERVESCENT TAB PO ×3 (08:35→11:48)
[2025-01-01] MEDS: dilTIAZem 180 MG CAP (CD) 360 MG PO (08:52)
[2025-01-01] MEDS: METOPROLOL SUCCINATE (XL) 50 MG TAB PO ×2 (08:53→20:48)
[2025-01-01] MEDS: APIXABAN 5 MG TABLET PO ×2 (08:53→20:45)
[2025-01-01] MEDS: LOSARTAN POTASSIUM 50 MG TABLET PO (08:53)
[2025-01-01] MEDS: PIOGLITAZONE HCL 15 MG TABLET 45 MG PO (08:53)
[2025-01-01] MEDS: LIDOCAINE 5% PATCH 1 PATCH TRANSDERMA (08:54)
[2025-01-01] MEDS: INSULIN PROT/ASP (NOVOLOG 70/30) 100 UNIT/ML 30 UNIT SUBCUT ×2 (08:55→20:49)
[2025-01-01] MEDS: PREGABALIN 100 MG CAPSULE PO ×2 (09:18→20:53)
--- NOTE | 2025-01-01 10:20 | W.PC.NUTR.NO ---
Nutrition Progress Note Progress Note Progress Note: RDN with MD consult for diet education related to diabetes. Patient admitted for stroke. Medical history includes but not limited to CVA in 2006, a fib, insulin dependent DM2. He received medical nutrition therapy for diabetes diet education with dietitian recently (12/11/2024). Current weight 107.104 kg; height 193.04cm; BMI 28.7 kg/m2. His weight has been stable recently without significant changes. Current diet order is Regular. 100% breakfast today. RDN attempted to visit with patient x4 today, however he was not available on all attempts. Will continue to monitor and attempt to visit at later date.
--- NOTE | 2025-01-01 10:30 | CT_ITS ---
Patient: TERRELL ESCALANTE Facility:?[facility] Patient ID:?[id number] Site Patient ID:?[id number]. Site :?1965 Study:?CT-Head Angio 95CC ISOVUE 370 NON ACUTE-01/01/2025 12:09:10 PM Ordering Physician:Ximena Joy Final Report: DATE: 01/01/2025 CLINICAL HISTORY: Patient with subacute right frontal stroke. TECHNIQUE: Standard helical CT image acquisition through the head and neck was performed after intravenous contrast bolus enhancement. 2D and 3D MIP images for post- processing were performed and interpreted on an independent workstation and 3D images were permanently archived. COMPARISON: CT same day. FINDINGS: The origins of the great vessels from the aortic arch are patent. The origin of the right vertebral artery is patent. The origin of the left vertebral artery is patent. The common carotid arteries are patent There is plaque without stenosis at the origin of the right internal carotid artery. There is plaque without stenosis at the origin of the left internal carotid artery. The rest of the cervical segments of the internal carotid arteries are patent up to their intracranial segments. The intracranial segments of the internal carotid arteries are patent. The left vertebral artery is dominant. The cervical segments of the vertebral arteries are patent. The intracranial segments of the vertebral arteries are patent. There is intracranial atherosclerosis with a severe stenosis in the distal right anterior cerebral artery and moderate narrowing in the M2 segments bilaterally The basilar artery is normal without aneurysm or occlusion. The posterior cerebral arteries are normal without aneurysm or proximal occlusion. The visualized lung apices are unremarkable The thyroid gland is unremarkable. The soft tissues of the neck are unremarkable. There are degenerative changes in the cervical spine. IMPRESSION: 1. Intracranial atherosclerosis with a severe stenosis in the distal right anterior cerebral artery and moderate narrowing in the M2 segments bilaterally. 2. Patent cervical vasculature. Please note that all CT scans at this facility use dose modulation, iterative reconstruction, and/or weight-based dosing when appropriate to reduce radiation dose to as low as reasonably achievable. Dictated by Debby Vasquez MD @ 01/01/2025 4:28:42 PM (Electronic Signature)
--- NOTE | 2025-01-01 10:30 | CT_ITS ---
Patient: TERRELL ESCALANTE Facility:?[facility] Patient ID:?[id number] Site Patient ID:?[id number]. Site :?1965 Study:?CT-Neck Angio Angio 95CC ISOVUE 370 NON ACUTE-01/01/2025 12:09:37 PM Ordering Physician:Ximena Joy Final Report: DATE: 01/01/2025 CLINICAL HISTORY: Patient with subacute right frontal stroke. TECHNIQUE: Standard helical CT image acquisition through the head and neck was performed after intravenous contrast bolus enhancement. 2D and 3D MIP images for post- processing were performed and interpreted on an independent workstation and 3D images were permanently archived. COMPARISON: CT same day. FINDINGS: The origins of the great vessels from the aortic arch are patent. The origin of the right vertebral artery is patent. The origin of the left vertebral artery is patent. The common carotid arteries are patent There is plaque without stenosis at the origin of the right internal carotid artery. There is plaque without stenosis at the origin of the left internal carotid artery. The rest of the cervical segments of the internal carotid arteries are patent up to their intracranial segments. The intracranial segments of the internal carotid arteries are patent. The left vertebral artery is dominant. The cervical segments of the vertebral arteries are patent. The intracranial segments of the vertebral arteries are patent. There is intracranial atherosclerosis with a severe stenosis in the distal right anterior cerebral artery and moderate narrowing in the M2 segments bilaterally The basilar artery is normal without aneurysm or occlusion. The posterior cerebral arteries are normal without aneurysm or proximal occlusion. The visualized lung apices are unremarkable The thyroid gland is unremarkable. The soft tissues of the neck are unremarkable. There are degenerative changes in the cervical spine. IMPRESSION: 1. Intracranial atherosclerosis with a severe stenosis in the distal right anterior cerebral artery and moderate narrowing in the M2 segments bilaterally. 2. Patent cervical vasculature. Please note that all CT scans at this facility use dose modulation, iterative reconstruction, and/or weight-based dosing when appropriate to reduce radiation dose to as low as reasonably achievable. Dictated by Debby Vasquez MD @ 01/01/2025 4:29:20 PM (Electronic Signature)
[2025-01-01 14:19] LABS: Potassium* 3.7 mmol/L (3.6-5.1)
--- NOTE | 2025-01-01 14:24 | PC.NURSE ---
Patient ambulates with SBA, gaitbelt, and cane. he is alert and oriented. Patient received [facility] telehealth, CTA, speech eval, and MOCHa
--- NOTE | 2025-01-01 14:28 | PC.NURSE ---
Patient up with SBA, gait belt, and cane.he has LLE weakness from previous stroke. Patient received hydralazine as ordered for Diastolic greater than 100, it was effective. He also received blood sugars and insulin as ordered. He had a [facility] teleheath consult as well as CTA, speech eval and MOCHA. not all results are in at this time. Gaby Ny at bedside.
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
[2025-01-01] MEDS: PERFLUTREN LIPID MICROSPHERES 2 ML VIAL IVP (15:47)
--- NOTE | 2025-01-01 15:59 | P.IMPN_ITS ---
Assessment and Plan Assessment and plan (1) Stroke: Problem comment: - posterior R frontal lobe, subacute - continue home medications (no permissive HTN given timeline), stroke Neurology f/u 01/01 - therapies ordered to assess functionality and goals of care/rehab needs - 01/01 neuro saw patient this morning and recommends CT angio head and neck and TTE, PT and OT, speech therapy, continue eliquis and start atorvastatin (which was started yesterday). Status: Acute (2) Syncope: Problem comment: - presumably 2/2 CVA, ddx includes arrythmia or vasovagal reaction - has loop recorder implanted (has had for years, battery has ) - remains in rate controlled a fib - follow on telemetry, morning orthostatic VS - 01/01 no further syncopal episodes. Appreciate neuro's assessment and rec ommendations Status: Acute (3) Type 2 diabetes mellitus: Problem comment: - IDDM2, A1C 09/2024 13.1, will recheck - 10/29; added Mounjaro to regimen - 01/01 poc glucoses within inpatient goal 158-219. Continue current regimen. Status: Chronic (4) Atrial fibrillation: Problem comment: - rate controlled on Metoprolol and Diltiazem - Eliquis for stroke prophylaxis Status: Chronic (5) Chronic pain: Problem comment: - on Lyrica (recently increased to 100mg BID), Flexeril, prn Oxycodone, Lidocaine patch Status: Chronic (6) Hyperlipidemia: Problem comment: - on atorvastatin Status: Chronic (7) Chronic anticoagulation: Problem comment: - Eliquis for a fib Status: Chronic Total Time Spent Total Time Spent: Today I spent 50 minutes seeing the patient, discussing with the patient and his fiancee, reviewing Dr. Cheek's note, reviewing Expanse and EPIC notes/diagnostics/labs, discussing the care plan with our care team that includes social work, PT/OT, pharmacy, RT, fci and documenting my im pressions and plan in the medical record. Subjective Time Seen by Provider: 09:40 Date Seen: 01/01/25 Interval history: Bubba tells me that his back pain is feeling better now that he got his lidocaine patch. Other than weakness from a stroke in 2006, he denies any focal symptoms. His fianceeYanely, called near the end of my conversation with him and he put her on speaker phone. We discussed code status and he would like to be a full code for now. I also gave her an update with the results of the studies he has had so far and what Dr. Cheek from stroke neuro recommended. Their questions were answered. I then went back later as patient and Yanely were asking about the results of the CT neck. I spoke with them about those results and the patient noted that he had already known about some of that back in 2006 when he had studies done then. We are still waiting for the echocardiogram today. Exam Narrative: Exam Narrative: General: No acute distress. Awake, alert, oriented x3. No pallor. No jaundice. Oropharynx: Clear. Mucous membranes moist. Cardiovascular: Regular rate and rhythm. No murmurs, gallops, or rubs. Respiratory: Clear to auscultation bilaterally. No wheezes or crackles. Abdomen: Bowel sounds present. Soft, nondistended, nontender. Extremities: No lower extremity edema. Neuro: Cranial nerves 2-12 are intact. Extraocular movements are full. No nystagmus. No facial asymmetry. Tongue is midline. Strength is 4/5 in left lower extremity, 5/5 in the 3 other extremities. DTRs intact and symmetric. Lig ht touch sensation is intact in face body and extremities. Const: Vital Signs, click to edit/add: Vital Signs - 24 hr 12/31/24 19:57 12/31/24 21:39 12/31/24 21:39 Temperature 98 F Pulse Rate Pulse Rate [Left P ulse Oximeter] 66 Pulse Rate [Right Pulse Oximeter] 92 Respiratory Rate 18 18 16 Blood Pressure [Ri ght Arm] 162/102 H Blood Pressure [Ri ght Upper Arm] 162/125 H Pulse Oximetry 94 96 96 Oxygen Delivery Me thod Room Air Room Air Room Air 12/31/24 23:30 01/01/25 01:19 01/01/25 03:59 Temperature 97.7 F 97.6 F Pulse Rate 97 Pulse Rate [Left P ulse Oximeter] 71 75 Pulse Rate [Right Pulse Oximeter] Respiratory Rate 18 18 Blood Pressure [Ri ght Arm] 146/114 H 158/125 H Blood Pressure [Ri ght Upper Arm] Pulse Oximetry 95 97 Oxygen Delivery Me thod Room Air Room Air 01/01/25 05:00 01/01/25 07:00 01/01/25 07:00 Temperature 97.8 F Pulse Rate 77 Pulse Rate [Left P ulse Oximeter] 76 Pulse Rate [Right Pulse Oximeter] Respiratory Rate 16 Blood Pressure [Ri ght Arm] 143/101 H 148/89 H Blood Pressure [Ri ght Upper Arm] Pulse Oximetry 97 Oxygen Delivery Me thod Room Air 01/01/25 07:00 01/01/25 07:00 01/01/25 10:14 Temperature 97.8 F Pulse Rate Pulse Rate [Left P ulse Oximeter] 76 80 Pulse Rate [Right Pulse Oximeter] Respiratory Rate 16 16 16 Blood Pressure [Ri ght Arm] 147/108 H Blood Pressure [Ri ght Upper Arm] Pulse Oximetry 97 96 Oxygen Delivery Me thod Room Air Room Air 01/01/25 11:51 Temperature Pulse Rate Pulse Rate [Left P ulse Oximeter] Pulse Rate [Right Pulse Oximeter] Respiratory Rate Blood Pressure [Ri ght Arm] 115/98 H Blood Pressure [Ri ght Upper Arm] Pulse Oximetry Oxygen Delivery Me thod Labs Labs: Laboratory Results - last 24 hr 12/31/24 12/31/24 12/31/24 19:58 20:13 20:35 WBC 6.92 RBC 5.28 Hgb 16.9 Hct 48.3 MCV 92 MCH 32 MCHC 35 RDW Coeff of Ailyn 12.0 Plt Count 268 Neut % (Auto) 66.9 Lymph % (Auto) 20.2 [place] % (Auto) 9.5 Eos % (Auto) 2.7 Baso % (Auto) 0.6 Neut # (Auto) 4.62 Lymph # (Auto) 1.40 [place] # (Auto) 0.70 Eos # (Auto) 0.19 Baso # (Auto) 0.04 Abs Immat Gran (auto) 0.01 Imm/Tot Granulo (auto) 0.1 Sodium 136 Potassium 3.4 L Chloride 95 L Carbon Dioxide 29 Anion Gap 12 BUN 14 Creatinine 0.9 Estimated Creat Clear 108.50 Estimated GFR 98 Glucose 282 H Hemoglobin A1c Calcium 9.5 Magnesium Total Bilirubin 0.6 AST 20 ALT 25 Alkaline Phosphatase 119 Troponin I Total Protein 7.0 Albumin 4.2 Triglycerides Cholesterol LDL Cholesterol, Calc HDL Cholesterol Lab Acknowledgement Test Added POC Glucose 308 H 01/01/25 01/01/25 01/01/25 06:20 07:58 13:57 WBC 5.99 RBC 5.36 Hgb 16.9 Hct 49.1 MCV 92 MCH 32 MCHC 34 RDW Coeff of Ailyn 12.0 Plt Count 245 Neut % (Auto) 47.3 Lymph % (Auto) 36.1 [place] % (Auto) 10.2 Eos % (Auto) 5.5 Baso % (Auto) 0.7 Neut # (Auto) 2.84 Lymph # (Auto) 2.16 [place] # (Auto) 0.60 Eos # (Auto) 0.33 Baso # (Auto) 0.04 Abs Immat Gran (auto) 0.01 Imm/Tot Granulo (auto) 0.2 Sodium 137 Potassium 2.8 L* 3.7 Chloride 99 Carbon Dioxide 27 Anion Gap 11 BUN 12 Creatinine 0.8 Estimated Creat Clear 122.06 Estimated GFR 102 Glucose 209 H Hemoglobin A1c 9.8 H Calcium 9.3 Magnesium 1.6 Total Bilirubin 1.1 AST 21 ALT 26 Alkaline Phosphatase 112 Troponin I < 0.01 Total Protein 7.1 Albumin 4.2 Triglycerides 181 H Cholesterol 172 LDL Cholesterol, Calc 96 HDL Cholesterol 40 Lab Acknowledgement Test Added POC Glucose
[2025-01-01] MEDS: ATORVASTATIN CALCIUM 40 MG TABLET PO (18:17)
[2025-01-01] MEDS: TRAZODONE HCL 50 MG TABLET 75 MG PO (20:46)
[2025-01-01] MEDS: SODIUM CHLORIDE 0.9 % (FLUSH) 10 ML SYRINGE 5 ML IVF (20:47)
[2025-01-02 03:00] VITALS: BP 112/87; PULSE 88; RESP 16; TEMP 36.4; O2SAT 97
--- NOTE | 2025-01-02 06:46 | PC.NURSE ---
End of shift report [id number]: VSS. Afebrile. Denies pain. Neuros intact. Pt ambulates 1A with walker and gaitbelt. Bed alarm on, call light within reach. Senior Electronics Technician bladder scanned 845 mls this morning, after scan pt voided 725 mls.
[2025-01-02 07:00] VITALS: PULSE 82
[2025-01-02 07:30] VITALS: BP 142/90; PULSE 67; RESP 16; TEMP 36.7; O2SAT 94; O2SAT 95
[2025-01-02] MEDS: METFORMIN 1,000 MG TABLET 1000 MG PO (08:31)
[2025-01-02] MEDS: ACETAMINOPHEN 325 MG TABLET 975 MG PO (08:31)
[2025-01-02] MEDS: APIXABAN 5 MG TABLET PO (08:31)
[2025-01-02] MEDS: LIDOCAINE 5% PATCH 1 PATCH TRANSDERMA (08:32)
[2025-01-02] MEDS: METOPROLOL SUCCINATE (XL) 50 MG TAB PO (08:32)
[2025-01-02] MEDS: LOSARTAN POTASSIUM 50 MG TABLET PO (08:32)
[2025-01-02] MEDS: dilTIAZem 180 MG CAP (CD) 360 MG PO (08:32)
[2025-01-02] MEDS: PIOGLITAZONE HCL 15 MG TABLET 45 MG PO (08:32)
[2025-01-02] MEDS: INSULIN PROT/ASP (NOVOLOG 70/30) 100 UNIT/ML 30 UNIT SUBCUT (09:09)
--- NOTE | 2025-01-02 09:57 | W.PC.NUTR.NO ---
Nutrition Progress Note Progress Note Progress Note: RDN with MD consult for diet education related to diabetes. Patient admitted for stroke. Medical history includes but not limited to CVA in 2006, a fib, insulin dependent DM2. He received medical nutrition therapy for diabetes diet education with dietitian recently (12/11/2024). Current weight 108.465 kg; height 193.04cm; BMI 28.7 kg/m2. His weight has been stable recently without significant changes. Current diet order is Regular. Meal intake, 10% x2 since admit. RDN visited with patient whom reports good appetite. He was offered diet education related to diabetes and heart health, however he declined at this time. Did give him education materials related to both diets. Patient anticipated to discharge today.
--- NOTE | 2025-01-02 11:14 | PC.SOCIAL ---
Social Service Consult: SW met with patient briefly to see if he had completed his HCD and wanted it notarized. Patient states that he hasn't completed it yet and doesn't know if he will prior to leaving. SW did explain they could have two witnesses sign it instead of having it notarized. Patient expressed understanding. Patient explained that he was frustrated with nursing overnight due to waking him up to pee and made statements around them being vinh he was a nice enough leslie to not break their jaw. SW asked if he would like to voice his concerns to a patient advocate and he was agreeable to this. SW notified patient advocate about concerns and his aggressive comments. Patient advocate states they will do more review and then meet with him. SW to assist if other needs arise.
[2025-01-02 11:18] VITALS: BP 115/80; PULSE 92; RESP 18; TEMP 36.7; O2SAT 95
[2025-01-02] MEDS: PREGABALIN 100 MG CAPSULE PO (12:05)
--- NOTE | 2025-01-02 13:10 | P.DS_ITS ---
DS: Providers Provider Time Seen by Provider: 08:00 Date Seen: 01/02/25 Date of admission: 12/31/24 20:28 Primary care physician: Franny Santana PA-C Admitting Clinician: Celeste Olvera MD Consults: 12/31/24 22:06 Consult to Occupational Health Professional [CONS] Routine Comment: Reason for Consult:: Social Service Consult Discharge Planning Needs 12/31/24 23:01 Consult to Nutrition [CONS] Routine Comment: Reason for consult:: Diabetic Teaching Consult to Physical Therapy [CONS] Routine Comment: Reason(s) for PT Consult:: Evaluate and Treat Any Restrictions?:: No Restrictions 12/31/24 23:02 Consult to Occupational Therapy [CONS] Routine Comment: Reason(s) for OT Consult:: Evaluate and Treat Any Restrictions?:: No Restrictions 01/01/25 10:31 Consult to Speech Therapy [CONS] Routine Comment: Reason(s) for Speech Consult:: Speech/Swallowing Eval Attending Physician on discharge: Benita Markham MD Date of Discharge: 01/02/25 DS: Diagnosis Discharge Diagnosis (1) Stroke: Status: Acute Problem details: - posterior R frontal lobe, subacute - continue home medications (no permissive HTN given timeline), stroke Neurology f/u 01/01 - therapies ordered to assess functionality and goals of care/rehab needs - 01/01 neuro saw patient this morning and recommends CT angio head and neck and TTE, PT and OT, speech therapy, continue eliquis and start atorvastatin (which was started yesterday). - 01/02 CTA head/neck as above, ECHO as above, I spoke with Anita from [facility] stroke neuro today to update her with these results and she recommended outpatient neuro follow-up in 1-2 months and a baby aspirin daily in addition to high-dose statin therapy. I verified with her that she wanted him on both a daily baby aspirin in addition to Eliquis and she confirmed that that is the case. I spoke with the patient and gave him these recommendations as well. (2) Syncope: Status: Acute Problem details: - presumably 2/2 CVA, ddx includes arrythmia or vasovagal reaction - has loop recorder implanted (has had for years, battery has ) - remains in rate controlled a fib - follow on telemetry, morning orthostatic VS - 01/02 patient has had no further syncopal episodes. Appreciate neuro's assessment and recommendations (3) Type 2 diabetes mellitus: Status: Chronic Problem details: - IDDM2, A1C 09/2024 13.1, will recheck - 10/29; added Mounjaro to regimen - 01/01 poc glucoses within inpatient goal 158-219. Continue current regimen. - 01/02 Hgb A1c elevated at 9.8%. POC glucoses today 116-167. Continue home regimen for discharge, f/u with PCP in 1 week. (4) Atrial fibrillation: Status: Chronic Problem details: - rate controlled on Metoprolol and Diltiazem - Eliquis for stroke prophylaxis (5) Chronic pain: Status: Chronic Problem details: - on Lyrica (recently increased to 100mg BID), Flexeril, prn Oxycodone, Lidoca ine patch (6) Hyperlipidemia: Status: Chronic Problem details: - on atorvastatin (7) Chronic anticoagulation: Status: Chronic Problem details: - Eliquis for a fib (8) Hypertension: Status: Acute (9) PFO (patent foramen ovale): Status: Chronic Problem details: h/o, not seen on ECHO 01/01/25 (10) Stenosis of cerebral artery: Status: Acute Problem details: CT angio head 01/01/2025: Intracranial atherosclerosis with a severe stenosis in the distal right anterior cerebral artery and moderate narrowing in the M2 segments bilaterally. - starting baby aspirin daily in addition to Eliquis per recommendations from Neuro DS: Summary Hospital Course Hospital Course: Per H&P: Parish Escalante is a 59 year old male with a history of CVA in 2006, a fib, insulin dependent DM2 who presented to the ER at the behest of his PCP at the [facility] for confusion, dizziness, and a syncopal episode. He had been feeling poorly for a few weeks, has been seeing PCP regularly in followup. Had an MRI ordered as an outpatient on 12/17/24, was unable to schedule. Had a syncopal episode 12/20/24 while on the toilet, then was very fatigued for a few days. Per PCP's note, partner has noted that Parish seems to have some cognitive impairment, in addition to clumsiness of his LLE. Bubba tells me that his L leg feels clumsy and he's terrified of stairs. He has had some legal trouble recently, which has been stressful. ER Course and Findings: - rate controlled atrial fibrillation on EKG (known, also history of WPW) - MRI revealed small subacute infarct in subcortical white matter of posterior R frontal lobe - Dr. Cormier of Stroke Neurology consulted, will follow patient during stay Patient admitted given CVA; needs PT and OT evaluations and f/u with stroke neurology. Dr. Cheek from [facility] saw patient via video 01/01/25. Per recommendations, we obtained further imaging and I discussed the results with neurology today. Please see diagnoses above for further details. Patient has not had any further syncopal episodes and neuro exams have been stable. He is discharged home today with in order for outpatient PT and OT as well as follow- up with his PCP and Neurology. Note to PCP: Patient's hemoglobin A1c was 9.8% here. It is recommended in the setting of stroke that this be managed more aggressively. His point of care blood sugars were rather labile and so I did not make any changes to his home regimen at this time other than to recommended diabetic diet follow-up with you to see what his sugars are over the next week at home. Time Spent with Patient Time attestation: Total time spent providing and/or coordinating discharge services: Today I spent 50 minutes seeing and discharging the patient, discussing with neuro, reviewing Expanse and EPIC notes/diagnostics/labs, discussing the care plan with our care team that includes social work, PT/OT, pharmacy, RT, senior care and documenting my impressions and plan in the medical record. Exam Narrative: Exam Narrative: General: No acute distress. Awake, alert, oriented x3. No pallor. No jau ndice. Oropharynx: Clear. Mucous membranes moist. Cardiovascular: Regular rate and rhythm. No murmurs, gallops, or rubs. Respiratory: Clear to auscultation bilaterally. No wheezes or crackles. Abdomen: Bowel sounds present. Soft, nondistended, nontender. Extremities: No lower extremity edema. Neuro: Cranial nerves 2-12 are intact. Extraocular movements are full. No nystagmus. No facial asymmetry. Tongue is midline. Strength is 4/5 in left lower extremity, 5/5 in the 3 other extremities. DTRs intact and symmetric. Light touch sensation is intact in face body and extremities. Const: Vital Signs, click to edit/add: Vital Signs - 24 hr 01/01/25 15:00 01/01/25 15:00 01/01/25 15:00 Temperature 98.2 F Pulse Rate 104 H Pulse Rate [Left P ulse Oximeter] 95 Respiratory Rate 18 Blood Pressure [Le ft Arm] 109/62 Blood Pressure [Ri ght Arm] Pulse Oximetry 95 95 Oxygen Delivery Me thod Room Air Room Air 01/01/25 19:00 01/01/25 19:57 01/01/25 20:17 Temperature 98.2 F Pulse Rate 99 Pulse Rate [Left P ulse Oximeter] 92 Respiratory Rate 18 18 Blood Pressure [Le ft Arm] Blood Pressure [Ri ght Arm] 105/66 Pulse Oximetry 96 Oxygen Delivery Me thod Room Air 01/01/25 23:00 01/01/25 23:00 01/02/25 03:00 Temperature 98.2 F 97.5 F L Pulse Rate Pulse Rate [Left P ulse Oximeter] 74 88 Respiratory Rate 16 16 16 Blood Pressure [Le ft Arm] 102/71 112/87 Blood Pressure [Ri ght Arm] Pulse Oximetry 96 96 97 Oxygen Delivery Me thod Room Air Room Air Room Air 01/02/25 07:00 01/02/25 07:30 01/02/25 07:30 Temperature 98.0 F Pulse Rate 82 Pulse Rate [Left P ulse Oximeter] 67 Respiratory Rate 16 16 Blood Pressure [Le ft Arm] 142/90 H Blood Pressure [Ri ght Arm] Pulse Oximetry 94 95 Oxygen Delivery Me thod Room Air Room Air 01/02/25 11:18 Temperature 98.0 F Pulse Rate Pulse Rate [Left P ulse Oximeter] 92 Respiratory Rate 18 Blood Pressure [Le ft Arm] 115/80 Blood Pressure [Ri ght Arm] Pulse Oximetry 95 Oxygen Delivery Me thod Room Air DS: Data Data Completed and Pending Completed studies during hospitalization: 12/31/2024 EKG: Atrial fibrillation with premature ventricular or aberrantly conducted complexes, 90 beats per minute, left axis deviation, cannot rule out inferior infarct, age undetermined. Ordering Physician: Sheela Santos M.D. Date of Service: 12/31/24 Procedure(s): CT head/brain wo con Accession Number(s): [id number] cc: Sheela Santos M.D.; Franny DAVIS~ For Patients: As a result of the Cures Act, medical imaging exams and procedure reports are released immediately into your electronic medical record. You may view this report before your referring provider. If you have questions, please contact your health care provider. Indication: Fall Technique: Volumetric multidetector CT images of the head were obtained without the administration of low osmolar intravenous contrast. Comparison: CT head November 19, 2024 Findings: There is no intra-axial or extra-axial fluid collection. There is no mass effect or midline shift. Stable global cortical atrophy with mild sulcal widening and ex vacuo dilatation of the right greater than left lateral ventricles. Stable encephalomalacia of the right frontal lobe and temporal lobes with associated leukomalacia. Mild chronic small vessel disease change of the subcortical and periventricular white matter is appreciated. The remaining brain parenchyma is preserved in attenuation and hair-white differentiation. The orbits and their contents are grossly within normal limits. The bony calvarium is grossly intact. The paranasal sinuses are clear. The mastoid air cells are well aerated. Impression: Stable remote ischemic and chronic small-vessel disease changes of the brain without acute intracranial abnormality. Please note that all CT scans at this facility use dose modulation, iterative reconstruction, and/or weight-based dosing when appropriate to reduce radiation dose to as low as reasonably achievable. Dictated by Harshad Lobo MD @ 12/31/2024 4:20:46 PM (Electronically Signed) Ordering Physician: Sheela Santos M.D. Date of Service: 12/31/24 Procedure(s): MR head/brain wo con Accession Number(s): [id number] cc: Sheela Santos M.D.; Franny DAVIS For Patients: As a result of the Cures Act, medical imaging exams and procedure reports are released immediately into your electronic medical record. You may view this report before your referring provider. If you have questions, please contact your health care provider. INDICATION: Leg weakness. Behavior changes. COMPARISON: CT from earlier today. TECHNIQUE: Multiplanar T1, T2, FLAIR and diffusion-weighted imaging. FINDINGS: Moderate generalized volume loss. 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 Ex vacuo dilatation of the right lateral ventricle. Small patchy focal area of T2/FLAIR signal hyperintensity within the subcortical white matter of the posterior right frontal lobe at the vertex with corresponding restricted diffusion (series 4, image 37; series 5, image 47) consistent with a recent, likely subacute infarct. No restricted diffusion elsewhere within the brain parenchyma. No midline shift. Compensatory mild dilatation ventricular system. Intracranial vascular flow voids are preserved. No mass effect or midline shift. No susceptibility artifact of remote hemorrhage. Bilateral orbits are unremarkable. Normal appearing sella. Visualized paranasal sinuses unremarkable. Small bilateral mastoid effusions. IMPRESSION: 1. Small subacute infarct within the subcortical white matter of the posterior right frontal lobe at the vertex. 2. No other areas restricted diffusion. 3. No acute or chronic intracranial hemorrhage 4. Moderate generalized cerebral volume loss. 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 Dictated by Glenn Olmos MD @ 12/31/2024 7:10:07 PM (Electronically Signed) Ordering Physician: Benita Markham M.D. Date of Service: 01/01/25 Procedure(s): CT angio head Accession Number(s): [id number] cc: Benita Markham M.D.; Franny DAVIS~ Patient: PARISH ESCALANTE Facility: [facility] Site . Site : 1965 Study: CT-Head Angio 95CC ISOVUE 370 NON ACUTE-01/01/2025 12:09:10 PM Ordering Physician: Rashi Joy Final Report: DATE: 01/01/2025 CLINICAL HISTORY: Patient with subacute right frontal stroke. TECHNIQUE: Standard helical CT image acquisition through the head and neck was performed after intravenous contrast bolus enhancement. 2D and 3D MIP images for post- processing were performed and interpreted on an independent workstation and 3D images were permanently archived. COMPARISON: CT same day. FINDINGS: The origins of the great vessels from the aortic arch are patent. The origin of the right vertebral artery is patent. The origin of the left vertebral artery is patent. The common carotid arteries are patent There is plaque without stenosis at the origin of the right internal carotid artery. There is plaque without stenosis at the origin of the left internal carotid artery. The rest of the cervical segments of the internal carotid arteries are patent up to their intracranial segments. The intracranial segments of the internal carotid arteries are patent. The left vertebral artery is dominant. The cervical segments of the vertebral arteries are patent. The intracranial segments of the vertebral arteries are patent. There is intracranial atherosclerosis with a severe stenosis in the distal right anterior cerebral artery and moderate narrowing in the M2 segments bilaterally The basilar artery is normal without aneurysm or occlusion. The posterior cerebral arteries are normal without aneurysm or proximal occlusion. The visualized lung apices are unremarkable The thyroid gland is unremarkable. The soft tissues of the neck are unremarkable. There are degenerative changes in the cervical spine. IMPRESSION: 1. Intracranial atherosclerosis with a severe stenosis in the distal right anter ior cerebral artery and moderate narrowing in the M2 segments bilaterally. 2. Patent cervical vasculature. Please note that all CT scans at this facility use dose modulation, iterative reconstruction, and/or weight-based dosing when appropriate to reduce radiation dose to as low as reasonably achievable. Dictated by Debby Vasquez MD @ 01/01/2025 4:28:42 PM (Electronic Signature) Dictated By: Debby Vasquez M.D. Signed By: 01/02/25 0823 DD/ 1628 TD/TT: 01/02/25 0822 Supervisor Electronic Testing: Ordering Physician: Benita Markham M.D. Date of Service: 01/01/25 Procedure(s): CT angio neck Accession Number(s): [id number] cc: Benita Markham M.D.; Franny DAVIS~ Patient: PARISH ESCALANTE Facility: [facility] Site . Site : 1965 Study: CT-Neck Angio Angio 95CC ISOVUE 370 NON ACUTE-01/01/2025 12:09:37 PM Ordering Physician: Rashi Joy Final Report: DATE: 01/01/2025 CLINICAL HISTORY: Patient with subacute right frontal stroke. TECHNIQUE: Standard helical CT image acquisition through the head and neck was performed after intravenous contrast bolus enhancement. 2D and 3D MIP images for post- processing were performed and interpreted on an independent workstation and 3D images were permanently archived. COMPARISON: CT same day. FINDINGS: The origins of the great vessels from the aortic arch are patent. The origin of the right vertebral artery is patent. The origin of the left vertebral artery is patent. The common carotid arteries are patent There is plaque without stenosis at the origin of the right internal carotid artery. There is plaque without stenosis at the origin of the left internal carotid artery. The rest of the cervical segments of the internal carotid arteries are patent up to their intracranial segments. The intracranial segments of the internal carotid arteries are patent. The left vertebral artery is dominant. The cervical segments of the vertebral arteries are patent. The intracranial segments of the vertebral arteries are patent. There is intracranial atherosclerosis with a severe stenosis in the distal right anterior cerebral artery and moderate narrowing in the M2 segments bilaterally The basilar artery is normal without aneurysm or occlusion. The posterior cerebral arteries are normal without aneurysm or proximal occlusion. The visualized lung apices are unremarkable The thyroid gland is unremarkable. The soft tissues of the neck are unremarkable. There are degenerative changes in the cervical spine. IMPRESSION: 1. Intracranial atherosclerosis with a severe stenosis in the distal right anterior cerebral artery and moderate narrowing in the M2 segments bilaterally. 2. Patent cervical vasculature. Please note that all CT scans at this facility use dose modulation, iterative reconstruction, and/or weight-based dosing when appropriate to reduce radiation dose to as low as reasonably achievable. Dictated by Debby Vasquez MD @ 01/01/2025 4:29:20 PM (Electronic Signature) Dictated By: Debby Vasquez M.D. Signed By: 01/02/25823 DD/ 1629 TD/TT: 01/02/25823 Supervisor Electronic Testing: Labs on day of discharge: Labs from last 24 hours 01/01/25 13:57 Potassium 3.7 Discharge Plan Discharge Disposition: Home, Self-Care Date of Admission: 12/31/24 20:28 Attending Provider on Discharge: Benita Markham Primary Care Provider: Franny Santana Condition: Stable Anticipated Discharge Date/Time: 01/02/25 13:24 Discharge Medications: New aspirin 81 mg capsule 81 mg PO DAILY Qty: 100 0RF Continued (DME) pen needle, diabetic [Ultra-Thin II Ins Pen [place]] 29 gauge x 1/2 needle See Rx Instructions .Route Qty: 100 3RF Rx Instructions: As directed twice daily atorvastatin 40 mg tablet 40 mg PO QDAY Qty: 90 3RF Novolin 70-30 FlexPen U-100 100 unit/mL (70-30) insulin pen 30 unit subcut BID Qty: 15 0RF Rx Instructions: 30 units twice daily (DME) Dexcom G7 Sensor Device See Rx Instructions .Route Qty: 9 3RF Rx Instructions: As directed oxycodone 5 mg tablet 5 mg PO Q6H PRN (Reason: pain) Qty: 12 0RF Rx Instructions: TAKE 1 TABLET EVERY 6 HOURS NEEDED FOR SEVERE PAIN cyclobenzaprine 10 mg tablet 10 mg PO QPM PRN (Reason: muscle spasm) Eliquis 5 mg tablet 5 mg PO BID trazodone 150 mg tablet 75 mg PO QPM metoprolol succinate 50 mg tablet extended release 24 hr 50 mg PO BID metformin 1,000 mg tablet 1,000 mg PO BID Qty: 360 3RF lidocaine 5 % adhesive patch,medicated 1 patch topical QDAY Qty: 90 0RF Rx Instructions: leave on most painful area for up to 12 hrs pregabalin 100 mg capsule 100 mg PO BID Qty: 180 0RF Rx Instructions: one capsule twice daily for pain management Mounjaro 5 mg/0.5 mL pen injector 5 mg subcut QWEEK Qty: 2 0RF Rx Instructions: once weekly start week 5 lorazepam [Ativan] 0.5 mg tablet 0.5 mg PO BID PRNQty: 10 0RF (DME) Dexcom G7 Laundry Technician Misc See Rx Instructions .Route Qty: 1 0RF Rx Instructions: As directed diltiazem HCl 360 mg capsule,extended release 24hr 360 mg PO DAILY Qty: 90 0RF pioglitazone 45 mg tablet 45 mg PO DAILY Qty: 90 0RF glipizide 10 mg tablet 10 mg PO BID Qty: 180 0RF losartan 50 mg tablet 50 mg PO DAILY Qty: 90 0RF Discharge Orders: Discharge Order (Routine); Ordered 01/02/25 Ordered By: Benita Markham Additional Instructions: Neurology 1-2 months Outpatient PT and OT Activity Level: Activity as Tolerated and Use Cane Discharge Diet: Diabetic and Heart Healthy (2 gm sodium, low fat) Follow Up Appointments: Franny Santana PA-C [Primary Care Provider, Family Practice] Referral Note: 1 week Forms: [facility] Inst[facility]
--- NOTE | 2025-01-02 15:26 | PC.NURSE ---
The patient discharged home, discharge and follow up instructions were reviewed as well as outpatient therapy schedule times. Medications were reviewed as well. All belongings went home with the patient. Carlie HAMMER BSN
== END 2025-01-02 15:15 | disposition home or self-care (01) | DRG 65 ==
LOC: ED 20:38 → MEDSURG 01-01 08:40
PROVIDERS: Family Medicine; Admitting Provider Family Medicine; Emergency Provider Family Medicine; PCP Physician Assistant Medical; Visit Provider Family Medicine
DX: I63.521 Cerebral infarction due to unspecified occlusion or stenosis of right anterior cerebral artery (principal); I48.20 Chronic atrial fibrillation, unspecified; Q21.12 Patent foramen ovale; I63.513 Cerebral infarction due to unspecified occlusion or stenosis of bilateral middle cerebral arteries; G83.14 Monoplegia of lower limb affecting left nondominant side; E11.9 Type 2 diabetes mellitus without complications; R55 Syncope and collapse; R29.700 NIHSS score 0; Z59.41 Food insecurity; I10 Essential (primary) hypertension; Z79.01 Long term (current) use of anticoagulants; Z79.4 Long term (current) use of insulin; Z79.84 Long term (current) use of oral hypoglycemic drugs; F17.210 Nicotine dependence, cigarettes, uncomplicated; G89.29 Other chronic pain; E78.5 Hyperlipidemia, unspecified
CPT/HCPCS: 36415; 51798; 70450; 70496; 70498; 70551; 80053; 80061; 82947; 82962; 83036; 83735; 84132; 84484; 85025; 92523; 92610; 93005; 93306; 96374; 97116; 97161; 97165; 97535; 99284; 99285; A9270; J0360; Q9957; Q9967

== ENCOUNTER 2025-01-16 13:25 | Outpatient (CLI) | payer MEDICARE, SELFPAY ==
--- NOTE | 2025-01-16 13:45 | CRLHL7_ITS ---
For Patients: As a result of the Cures Act, medical imaging exams and procedure reports are released immediately into your electronic medical record. You may view this report before your referring provider. If you have questions, please contact your health care provider. INDICATION: Follow-up encephalomalacia. TECHNIQUE: Brain MRI with and without contrast. COMPARISON: Brain MRI from 12/31/2024. FINDINGS: A small focus of very mild diffusion restriction within the posterior aspect of the right superior frontal gyrus juxtacortical white matter, compatible with a late subacute/early chronic infarction. No evidence of recent ischemia elsewhere within the brain. No evidence of acute or chronic intracranial blood products. Transcortical encephalomalacia right middle/inferior frontal gyrus and separately within the right posterior superior temporal/parietal region, consistent with chronic MCA territory infarctions. Ex vacuo dilatation of the right lateral ventricle. No mass effect or herniation. No hydrocephalus or extra-axial collections. The pituitary gland, parasellar structures and optic chiasm are normal. Tiny chronic infarct left inferior cerebellum. All the major intracranial vascular structures demonstrate normal flow-related signal. The orbital contents are normal. No calvarial or skull base marrow replacing process. No obstructive sinus disease. A frontal scalp sebaceous cyst. IMPRESSION: 1. A small late subacute/early chronic infarct within the right superior frontal gyrus juxtacortical white matter, also present on prior MRI. No recent ischemia elsewhere within the brain. 2. Stable chronic right MCA territory infarctions. Stable tiny chronic infarct left inferior cerebellum. 3. No mass or pathologic intracranial enhancement. Dictated by Nitin Flores MD @ 01/18/2025 10:09:31 AM (Electronically Signed)
--- NOTE | 2025-01-16 14:45 | CRLHL7_ITS ---
For Patients: As a result of the 21st Century Cures Act, medical imaging exams and procedure reports are released immediately into your electronic medical record. You may view this report before your referring provider. If you have questions, please contact your health care provider. EXAM: MRI OF THE RIGHT SHOULDER WITHOUT CONTRAST CLINICAL INDICATION: Shoulder pain. COMPARISON PLAIN FILMS: None available at time of interpretation. COMPARISON CROSS-SECTIONAL IMAGING STUDIES: None available at time of interpretation. TECHNICAL: Axial, sagittal oblique and coronal oblique T1, PD, PD FS and T2-weighted images. Shoulder surface coil. FINDINGS: ROTATOR CUFF TENDONS AND MUSCLES AND DELTOID: Supraspinatus: 0.5 cm low-grade partial-thickness intrasubstance tear of the distal anterior aspect of the supraspinatus tendon at the insertional footprint. Diffuse increased signal and heterogeneity in the supraspinatus tendon consistent with moderate tendinopathy. Thin ganglion cyst at the myotendinous junction. No muscle atrophy or edema. Infraspinatus: Mild tendinopathy. No tendon tear. No muscle atrophy or edema. Subscapularis: Mild tendinopathy. No tendon tear. No muscle atrophy or edema. Teres Minor: No tendinosis, tendon tearing, muscle atrophy or muscle edema. Deltoid: No muscle atrophy or edema. BURSA: Subacromial-subdeltoid: No abnormal bursal edema, thickening or bursal fluid. BICEPS TENDON, LONG HEAD: The long head of the biceps tendon is appropriately positioned within the bicipital groove without tendon subluxation or dislocation. The biceps nuria mechanism is intact. The biceps anchor appears grossly intact. There is no significant tendinosis or tendon tearing. CORACOACROMIAL ARCH: Acromial Morphology: Type 1 acromial morphology. No abnormal lateral or anterior downward sloping of the acromion. No significant subacromial spur. No os acromiale. Acromiohumeral Interval: Normal. Coracohumeral Interval: Normal. ACROMIOCLAVICULAR JOINT REGION: AC Joint: Mild arthropathy. Ligaments: The coracoclavicular ligaments are intact. GLENOHUMERAL JOINT: Joint space: No effusion or synovitis. Humeral Head Articular Cartilage: No focal cartilage defect or underlying subchondral marrow changes. Glenoid Articular Cartilage: No focal cartilage defect or underlying subchondral marrow changes. Labrum: No labral tear or paralabral cyst. Alignment: Maintained. Capsule: No capsular edema or abnormal capsular thickening. OSSEOUS STRUCTURES: No fracture, marrow edema or marrow replacement process. OTHER FINDINGS: There is no abnormality within the suprascapular or spinoglenoid notches nor within the quadrilateral space. No axillary adenopathy or mass. IMPRESSION: 1. Small low-grade partial-thickness intrasubstance tear of the distal anterior supraspinatus tendon with moderate tendinopathy. Thin ganglion cyst at the myotendinous junction. 2. Mild infraspinatus and subscapularis tendinopathy. 3. Mild arthropathy of the acromioclavicular joint. Dictated by Maldonado Kendall MD @ 01/17/2025 8:46:06 AM (Electronically Signed)
== END 2025-01-16 13:26 | disposition home or self-care (01) ==
LOC: MRI 13:30
PROVIDERS: PCP Physician Assistant Medical; Visit Provider Physician Assistant Medical
DX: M25.511 Pain in right shoulder (principal); M75.101 Unspecified rotator cuff tear or rupture of right shoulder, not specified as traumatic; M13.811 Other specified arthritis, right shoulder; R93.0 Abnormal findings on diagnostic imaging of skull and head, not elsewhere classified; Z86.73 Personal history of transient ischemic attack (TIA), and cerebral infarction without residual deficits
CPT/HCPCS: 70553; 73221; A9575

== ENCOUNTER 2025-01-21 13:15 | Emergency (ER) | payer MEDICARE, SELFPAY ==
[2025-01-21 13:32] VITALS: BP 145/102; PULSE 97; RESP 18; TEMP 36.6; O2SAT 98; BMI 29.6
--- NOTE | 2025-01-21 14:27 | ED_ITS ---
HPI - Neuro Symptoms/Deficit General Time Seen by Provider: 14:27 <Tenisha Herrera MD - Last Filed: 01/22/25 08:24> Date Seen: 01/21/25 <Tenisha Herrera MD - Last Filed: 01/22/25 08:24> Chief Complaint: Neuro Symptoms/Altered Deficit <Tenisha Herrera MD - Last Filed: 01/22/25 08:24> Stated Complaint: Worried stroke symptoms are coming back <Tenisha Herrera MD - Last Filed: 01/22/25 08:24> Time Seen by Provider: 01/21/25 14:11 <Tenisha Herrera MD - Last Filed: 01/22/25 08:24> Source: patient, RN notes reviewed and old records reviewed <Tenisha Hanson MD - Last Filed: 01/22/25 08:24> Mode of arrival: ambulatory <Tenisha Herrera MD - Last Filed: 01/22/25 08:24> Limitations: no limitations <Tenisha Herrera MD - Last Filed: 01/22/25 08:24> History of Present Illness HPI Narrative: This 59-year-old male is coming in with his significant other, concerned h e might be having worsening or new stroke symptoms. He just seemed off this last week. He was in on December 31, had MR imaging showing new subacute CVA. He has a history of a stroke in 2006 where he had left-sided speech symptoms, facial drooping. He does have underlying atrial fibrillation and is chronically anticoagulated. As examples, he is stating his right leg and hip have been bothering him, he keeps pointing to his left but calling it his right. He messed up with his physical therapy appointment today, rushed out of the house thinking it was at noon, was actually at 2:30 today. It is just small things of that nature where he seems to be cognitively off. His significant other was a nurse. He did see Neurology, had imaging done. Patient was to add on a baby aspirin as well as high-dose statin therapy, continue on his Eliquis. His CT angiography showed severe stenosis in the distal right anterior cerebral artery and moderate narrowing in the M2 segments bilaterally. His MR imaging from recent MRI of his had on January 16 showed small late subacute/early chronic infarct within the right superior frontal gyrus juxtacortical white matter, also present on prior MRI, no recent ischemia elsewhere in the brain (was back in ED for leg weakness and behavior changes). Stable chronic right MCA territory infarctions. Stable tiny chronic infarct left inferior cerebellum. His original imaging with MRI of his brain on December 31 showed small subacute infarct within subcortical white matter of the posterior right frontal lobe at the vertex. No new trauma or falls hitting his head. He has not missed any doses of Eliquis except his earlier dose today, that happened when he had to leave the house quickly as he thought he was missing his physical therapy appointment. He has not been sick with anything, no cough or cold symptoms, no fevers or chills. 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 08/17/24 (Dexcom G7 Manager Mental Health) glipizide 10 mg tablet 10 mg PO BID #180 tabs 09/13 pioglitazone 45 mg tablet 45 mg PO DAILY #90 tabs 09/04 atorvastatin 40 mg tablet 40 mg PO QDAY #90 tabs 09/20 pen needle, diabetic 29 gauge x #100 ea 09/20/2403/08 (Ultra-Thin II Insulin Pen [place]) lidocaine 5 % topical patch 1 patch topical QDAY #90 e a 10/18/24 lorazepam 0.5 mg tablet (Ativan) 0.5 mg PO BID PRN #10 tabs 11/12/24 blood-glucose sensor (Dexcom G7 #9 ea 11/29/24 Sensor device) insulin NPH-regular 70-30 U-100 30 unit (0.3 mL) subcu t BID #15 mL 11/29/24 insulin 100 unit/mL subcutaneous pen (Novolin 70-30 FlexPen U-100 Insulin) oxycodone 5 mg tablet 5 mg PO Q6H PRN pain #12 tab s 11/29/24 pregabalin 100 mg capsule 100 mg PO BID #180 caps 12/05 05/29 losartan 50 mg tablet 50 mg PO DAILY #90 tabs 12/06 06/29 aspirin 81 mg capsule 81 mg PO DAILY #100 caps tirzepatide 2.5 mg/0.5 mL 2.5 mg (0.5 mL) subcut QWEEK 4 01/11/25 subcutaneous pen injector weeks #2 mL (Isaías) diltiazem HCl 360 mg 360 mg PO DAILY #90 caps 12/29 capsule,extended release 24 hr <Tenisha Herrera MD - Last Filed: 01/22/25 08:24> Allergies/Adverse Reactions: Allergies Allergy/AdvReac Type Severity Reaction Status Date / Time No Known Drug Allergies Allergy Verified 01/11/25 12:27 <Tenisha Herrera MD - Last Filed: 01/22/25 08:24> Review of Systems Status of ROS: Reports: 6 or more systems reviewed and unremarkable except as noted in History and below <Tenisha Herrera MD - Last Filed: 01/22/25 08:24> [facility] Medical History: Medical History Type 2 diabetes mellitus ?E11.9 - Type 2 diabetes mellitus without complications (ICD-10) CVA (cerebral vascular accident) ?I63.9 - Cerebral infarction, unspecified (ICD-10) Atrial fibrillation ?I48.91 - Unspecified atrial fibrillation (ICD-10) Chronic anticoagulation ?Z79.01 - skilled nursing (current) use of anticoagulants (ICD-10) PFO (patent foramen ovale) ?Q21.12 - Patent foramen ovale (ICD-10) Lumbar back pain ?M54.50 - Low back pain, unspecified (ICD-10) Hyperlipidemia ?E78.5 - Hyperlipidemia, unspecified (ICD-10) Hypertension ?I10 - Essential (primary) hypertension (ICD-10) 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 No children. Smoking cigarettes (3-4/day), marijuana occasionally, no concerning ETOH use What is your current living situation?: I presently have a place to live Problems where you live: no known problems Problems where you live details: n/a In the past 12 months, utilities in danger of being shut off: no In past 12 months, lack of transportation kept you from medical appts, meetings, work, or getting things needed for daily living: no In the past 12 mos, have been you worried that your food would run out before you had money to buy more?: often true In the past 12 mos, the food you bought just didn't last and you didn't have mo ely to buy more?: sometimes true Highest level of school completed/degree received: Bachelor's degree Smoking Status: Current every day smoker What tobacco products do you use: cigarettes How often do you have a drink containing alcohol: never AUDIT-C Alcohol total score: 0 Non-prescribed substance use: marijuana (any form) Non-prescribed substance use details: pt states occasional THC gummy use Caffeine: Yes How often does anyone, including family, friends and others, physically hurt you : never How often does anyone, including family, friends and others, insult or talk down to you: never How often does anyone, including family, friends and others, threaten you with harm: never How often does anyone, including family, friends and others, scream or curse at you: never service: No Health Related Social Needs: food insecurity (Z59.41) <Tenisha Herrera MD - Last Filed: 01/22/25 08:24> Exam Const: Vital Signs, click to edit/add: Vital Signs - 24 hr 01/21/25 13:32 01/21/25 16:39 01/21/25 17:54 Temperature 97.8 F 98.2 F 97.6 F Pulse Rate [Pulse Oximeter] 97 92 63 Respiratory Rate 18 18 18 Blood Pressure [Ri ght Upper Arm] 145/102 H 175/80 H 140/93 H Pulse Oximetry 98 98 96 Oxygen Delivery Me thod Room Air Room Air Room Air 01/21/25 22:18 Temperature 97.7 F Pulse Rate [Pulse Oximeter] 96 Respiratory Rate 19 Blood Pressure [Ri ght Upper Arm] 129/87 Pulse Oximetry 97 Oxygen Delivery Me thod This 59-year-old male is alert, interactive, no apparent distress. Pupils equal round reactive, sclerae clear, extraocular muscles intact. Symmetric facial function, speech is normal. He was talking about his left leg calling it his right leg but otherwise no alteration in speech or word-finding issues noted. Strength is 5 5 and symmetric throughout both upper and lower extremities, normal light touch sensation. CV irregularly irregular but not fast, no significant murmur, normal S1-S2. Abdomen soft, nontender, no rebound or guarding, no organomegaly. Lungs are clear, good air entry, no crackles, no tachypnea, no accessory muscle use. He has no lower extremity edema. No sensory changes noted. <Tenisha Herrera MD - Last Filed: 01/22/25 08:24> Vital Signs, click to edit/add: Vital Signs - 24 hr 01/21/25 13:32 01/21/25 16:39 01/21/25 17:54 Temperature 97.8 F 98.2 F 97.6 F Pulse Rate [Pulse Oximeter] 97 92 63 Respiratory Rate 18 18 18 Blood Pressure [Ri ght Upper Arm] 145/102 H 175/80 H 140/93 H Pulse Oximetry 98 98 96 Oxygen Delivery Me thod Room Air Room Air Room Air 01/21/25 22:18 Temperature 97.7 F Pulse Rate [Pulse Oximeter] 96 Respiratory Rate 19 Blood Pressure [Ri ght Upper Arm] 129/87 Pulse Oximetry 97 Oxygen Delivery Me thod <Tracey Oneill MD - Last Filed: 01/21/25 23:00> Documenting provider has reviewed patient's vital signs: yes <Tenisha Herrera MD - Last Filed: 01/22/25 08:24> Course Course ED Course: Reviewed with them that I was going to talk to Neurology. I did order MR imaging of his brain but after talking to Dr. Justin, she thinks we should consider doing the MR with and without contrast, make sure we are not missing something abnormal like vasculitis. Other than that, will proceed with MR imaging. He is known to have AFib, his other risk factors include smoking, poorly controlled diabetes, obesity, hypertension. <Tenisha Herrera MD - Last Filed: 01/22/25 08:24> Reevaluation(s) Time of Reevaluation #1: 19:58 <Tenisha Herrera MD - Last Filed: 01/22/25 08:24> Reevaluation #1: Patient is requesting his Eliquis, has not taken it, did order him 5 mg. His blood sugars for 82, he did not bring any insulin. We will cover him with 8 units regular insulin, may have him go down on his NPH by a couple of units tonight. Awaiting MR imaging <Tenisha Herrera MD - Last Filed: 01/22/25 08:24> Time of Reevaluation #2: 22:57 <Tracey Oneill MD - Last Filed: 01/21/25 23:00> Reevaluation #2: Dr. Oneill: MRI results reviewed. No new changes. No signs of vasculitis, new blockages or new areas of stroke. This is reassuring. I reviewed plan of care with patient. At this time, he will continue on both his aspirin and his apixaban. He will make a follow-up appointment with neurology. Patient's says that she will coordinate this through [facility]. Alarm symptoms reviewed that would warrant repeat evaluation in the ED in the interim. They verbalize understanding and agreement. Will be discharged home. <Tracey Oneill MD - Last Filed: 01/21/25 23:00> Vital Signs Vital signs: Initial Vital Signs Temperature 97.8 F 01/21/25 13:32 Temperature Source Temporal Artery Scan 01/21/25 13:32 Pulse Rate 97 01/21/25 13:32 Respiratory Rate 18 01/21/25 13:32 Blood Pressure 145/102 H 01/21/25 13:32 Blood Pressure Mean 116 H 01/21/25 13:32 Blood Pressure Position Sitting 01/21/25 13:32 Pulse Oximetry 98 01/21/25 13:32 Oxygen Delivery Method Room Air 01/21/25 13:32 Vital Signs Temperature 97.8 F 01/21/25 13:32 Pulse Rate 97 01/21/25 13:32 Respiratory Rate 18 01/21/25 13:32 Blood Pressure 145/102 H 01/21/25 13:32 Pulse Oximetry 98 01/21/25 13:32 Oxygen Delivery Method Room Air 01/21/25 13:32 Temperature 97.7 F 01/21/25 22:18 Pulse Rate 96 01/21/25 22:18 Respiratory Rate 19 01/21/25 22:18 Blood Pressure 129/87 01/21/25 22:18 Pulse Oximetry 97 01/21/25 22:18 Oxygen Delivery Method Room Air 01/21/25 17:54 <Tenisha Herrera MD - Last Filed: 01/22/25 08:24> Initial Vital Signs Temperature 97.8 F 01/21/25 13:32 Temperature Source Temporal Artery Scan 01/21/25 13:32 Pulse Rate 97 01/21/25 13:32 Respiratory Rate 18 01/21/25 13:32 Blood Pressure 145/102 H 01/21/25 13:32 Blood Pressure Mean 116 H 01/21/25 13:32 Blood Pressure Position Sitting 01/21/25 13:32 Pulse Oximetry 98 01/21/25 13:32 Oxygen Delivery Method Room Air 01/21/25 13:32 Vital Signs Temperature 97.8 F 01/21/25 13:32 Pulse Rate 97 01/21/25 13:32 Respiratory Rate 18 01/21/25 13:32 Blood Pressure 145/102 H 01/21/25 13:32 Pulse Oximetry 98 01/21/25 13:32 Oxygen Delivery Method Room Air 01/21/25 13:32 Temperature 97.7 F 01/21/25 22:18 Pulse Rate 96 01/21/25 22:18 Respiratory Rate 19 01/21/25 22:18 Blood Pressure 129/87 01/21/25 22:18 Pulse Oximetry 97 01/21/25 22:18 Oxygen Delivery Method Room Air 01/21/25 17:54 <Tracey Oneill MD - Last Filed: 01/21/25 23:00> Medications Administered Medications: Discontinued Medications Generic Name Dose Route Start Last Admin Trade Name Freq PRN Reason Stop Dose Admin Apixaban 5 mg 01/21/25 19:55 01/21/25 20:06 Apixaban 5 Mg Tablet PO 01/21/25 19:56 5 mg ONCE ONE Administration Insulin Human Regular 8 unit 01/21/25 19:58 01/21/25 20:07 Insulin Regular, Human 100 Unit/Ml Vial SUBCUT 01/21/25 19:59 8 unit ONCE ONE Administration <Tenisha Herrera MD - Last Filed: 01/22/25 08:24> Discontinued Medications Generic Name Dose Route Start Last Admin Trade Name Freq PRN Reason Stop Dose Admin Apixaban 5 mg 01/21/25 19:55 01/21/25 20:06 Apixaban 5 Mg Tablet PO 01/21/25 19:56 5 mg ONCE ONE Administration Insulin Human Regular 8 unit 01/21/25 19:58 01/21/25 20:07 Insulin Regular, Human 100 Unit/Ml Vial SUBCUT 01/21/25 19:59 8 unit ONCE ONE Administration <Tracey Oneill MD - Last Filed: 01/21/25 23:00> MDM - Neuro Symptoms/Deficit Imaging Data MRI - head: Attestation: I have reviewed the pertinent imaging results. <Tracey Oneill MD - Last Filed: 01/21/25 23:00> Radiologist's impression: IMPRESSION: No acute intracranial abnormality or significant interval change since prior study. Dictated by Elio Evans MD @ 01/21/2025 10:09:52 PM <Tracey Oneill MD - Last Filed: 01/21/25 23:00> Discharge Plan Discharge Clinical Impression: Brain TIA <Tenisha Herrera MD - Last Filed: 01/22/25 08:24> Patient Disposition: Home w/ Parent or Adult <Tenisha Herrera MD - Last Filed: 01/22/25 08:24> Condition: Stable <Tenisha Herrera MD - Last Filed: 01/22/25 08:24> Instructions: Transient Ischemic Attack (ED) <Tenisha Herrera MD - Last Filed: 01/22/25 08:24> Additional Instructions: As we discussed, the MRI looks stable. There were no new signs of blockages, vasculitis or other findings. You certainly do have a lot of plaque buildup and areas of ongoing concern in the brain but I do not think that any changes to her medicines at this time will make a dramatic improvement. I do want you to continue on her aspirin, your apixaban and I would like for you to see a neurologist. I do recommend that [facility]. The closest office to you would be in [place]. Quitting smoking would dramatically reduce your risk of further events. <Tenisha Herrera MD - Last Filed: 01/22/25 08:24> Activity Level: No Restrictions <Tenisha Herrera MD - Last Filed: 01/22/25 08:24> No Restrictions <Tracey Oneill MD - Last Filed: 01/21/25 23:00> Discharge Diet: Regular <Tenisha Herrera MD - Last Filed: 01/22/25 08:24> Regular <Tracey Oneill MD - Last Filed: 01/21/25 23:00> Prescriptions: No Action (DME) pen needle, diabetic [Ultra-Thin II Ins Pen [place]] 29 gauge x 1/2 needle See Rx Instructions .Route Qty: 100 3RF Rx Instructions: As directed twice daily atorvastatin 40 mg tablet 40 mg PO QDAY Qty: 90 3RF Novolin 70-30 FlexPen U-100 100 unit/mL (70-30) insulin pen 30 unit subcut BID Qty: 15 0RF Rx Instructions: 30 units twice daily (DME) Dexcom G7 Sensor Device See Rx Instructions .Route Qty: 9 3RF Rx Instructions: As directed oxycodone 5 mg tablet 5 mg PO Q6H PRN (Reason: pain) Qty: 12 0RF Rx Instructions: TAKE 1 TABLET EVERY 6 HOURS NEEDED FOR SEVERE PAIN cyclobenzaprine 10 mg tablet 10 mg PO QPM PRN (Reason: muscle spasm) Eliquis 5 mg tablet 5 mg PO BID trazodone 150 mg tablet 75 mg PO QPM metoprolol succinate 50 mg tablet extended release 24 hr 50 mg PO BID metformin 1,000 mg tablet 1,000 mg PO BID Qty: 360 3RF lidocaine 5 % adhesive patch,medicated 1 patch topical QDAY Qty: 90 0RF Rx Instructions: leave on most painful area for up to 12 hrs pregabalin 100 mg capsule 100 mg PO BID Qty: 180 0RF Rx Instructions: one capsule twice daily for pain management lorazepam [Ativan] 0.5 mg tablet 0.5 mg PO BID PRNQty: 10 0RF aspirin 81 mg capsule 81 mg PO DAILY Qty: 100 0RF (DME) Dexcom G7 Manager Mental Health Misc See Rx Instructions .Route Qty: 1 0RF Rx Instructions: As directed pioglitazone 45 mg tablet 45 mg PO DAILY Qty: 90 0RF glipizide 10 mg tablet 10 mg PO BID Qty: 180 0RF losartan 50 mg tablet 50 mg PO DAILY Qty: 90 0RF Mounjaro 2.5 mg/0.5 mL pen injector 2.5 mg subcut QWEEK 28 Days Qty: 2 0RF Rx Instructions: once weekly for diabetes diltiazem HCl 360 mg capsule,extended release 24hr 360 mg PO DAILY Qty: 90 0RF <Tenisha Herrera MD - Last Filed: 01/22/25 08:24> Follow Up/Referrals: Franny Santana, PAJuan AlbertoC [Primary Care Provider, Family Practice] <Tenisha Herrera MD - Last Filed: 01/22/25 08:24> Stand Alone Forms: MyHealth Info Instructions <Tenisha Herrera MD - Last Filed: 01/22/25 08:24>
--- NOTE | 2025-01-21 14:51 | CRLHL7_ITS ---
For Patients: As a result of the Century Cures Act, medical imaging exams and procedure reports are released immediately into your electronic medical record. You may view this report before your referring provider. If you have questions, please contact your health care provider. INDICATION: Cognitive changes, worsening. TECHNIQUE: Multiplanar multisequence MRI of the brain without with IV contrast. Contrast: 22 cc Dotarem. COMPARISON: MRI brain 01/16/2025. FINDINGS: No acute infarct. Again demonstrated small late subacute/early chronic infarct in the right superior frontal gyrus juxtacortical white matter. Chronic right MCA territory infarct, unchanged. Associated ex vacuo dilatation of the right lateral ventricle. No evidence of intracranial hemorrhage, mass effect, or extra-axial fluid collection. No hydrocephalus. Basilar cisterns are patent. Moderate generalized cerebral volume loss. No abnormal enhancement. Midline structures are intact. 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 Remaining major flow voids at the skull base are maintained. Calvarium is intact. Orbits are unremarkable. Paranasal sinuses and mastoid air cells are clear. Small left posterior scalp epidural inclusion cyst, unchanged. IMPRESSION: No acute intracranial abnormality or significant interval change since prior study. Dictated by Elio Evans MD @ 01/21/2025 10:09:52 PM (Electronically Signed)
[2025-01-21 16:39] VITALS: BP 175/80; PULSE 92; RESP 18; TEMP 36.8; O2SAT 98
[2025-01-21 17:54] VITALS: BP 140/93; PULSE 63; RESP 18; TEMP 36.4; O2SAT 96
[2025-01-21] MEDS: APIXABAN 5 MG TABLET PO (20:06)
[2025-01-21] MEDS: INSULIN REGULAR, HUMAN 100 UNIT/ML VIAL 8 UNIT SUBCUT (20:07)
[2025-01-21 22:18] VITALS: BP 129/87; PULSE 96; RESP 19; TEMP 36.5; O2SAT 97
== END 2025-01-21 23:10 | disposition home or self-care (01) ==
PROVIDERS: Emergency Provider Family Medicine; PCP Physician Assistant Medical
DX: G45.9 Transient cerebral ischemic attack, unspecified (principal); E11.65 Type 2 diabetes mellitus with hyperglycemia; F17.210 Nicotine dependence, cigarettes, uncomplicated; Z86.73 Personal history of transient ischemic attack (TIA), and cerebral infarction without residual deficits; Z79.82 Long term (current) use of aspirin; Z79.4 Long term (current) use of insulin; Z79.85 Long-term (current) use of injectable non-insulin antidiabetic drugs; Z79.84 Long term (current) use of oral hypoglycemic drugs; Z79.01 Long term (current) use of anticoagulants
CPT/HCPCS: 70553; 96374; 99284; 99285; A9270; A9575